=== PATIENT | female | born 1970 | race Caucasian/White ===

== ENCOUNTER 2017-03-27 09:17 | Observation (INO) | payer BC ==
[2017-03-27 09:55] LABS: Mean Cell Volume 74.3 fl (78-100); Mean Corpuscular Hemoglobin 22.4 pg (26-32); Mean Platelet Volume 10.8 fl (6-9.5); Platelet Count 352 K/mm3 (150-450); Red Blood Count 4.99 M/mm3 (4.1-5.4); Red Cell Distribution Width 17.3 % (11.5-14.0); White Blood Count 6.4 K/mm3 (4.0-10.5)
[2017-03-27] MEDS ORDERED: Sodium Chloride 0.9% 10 ML FLUSH Syringe IV PRN (10:21)
[2017-03-27 10:28] LABS: ALBUMIN 4.1 g/dL (3.4-5.0); ALKALINE PHOSPHATASE 71 U/L (46-116); ANION GAP 13.3 MEQ/L (5-15); BLOOD UREA NITROGEN 11 mg/dL (9-20); CHLORIDE 106 mEq/L (98-107); Carbon Dioxide 26.6 mEq/L (21-32); Glucose 92 MG/DL (70-110); Potassium 4.2 mEq/L (3.5-5.1); SGOT/AST 22 U/L (15-37); SGPT/ALT 14 U/L (12-78); SODIUM 142 mEq/L (136-145); Total Protein 7.4 gm/dL (6.4-8.2)
[2017-03-27 10:30] LABS: TROPONIN < 0.017 ng/ml (0.000-0.056)
[2017-03-27] MEDS ORDERED: solu-MEDROL 125 MG IV SCH (10:30)
[2017-03-27] MEDS ORDERED: ROCEPHIN 1 Gm-D5w 50 ml Bag** 1 G/50 ML IVPB IV SCH (10:30)
[2017-03-27 10:42] LABS: ANISOCYTOSIS 1+; Eosinophil 1 % (0.00-3.0); Platelet Estimate NORMAL (NORMAL); Poikilocytosis 1+; Total Cells Counted 100
[2017-03-27] MEDS: DUONEB 0.5-3 MG/3 ml Neb IH SCH ×4 (10:52→23:15)
--- NOTE | 2017-03-27 10:53 | XRAY ---
Exam: Two-view chest from 03/27/2017. Comparison: Two-view chest from 03/19/2015. Indication: Shortness of breath. Findings: Upright PA and lateral chest films were obtained. The lungs are well expanded. Minimal curvilinear plate atelectasis is seen projected over the left costophrenic angle on the PA film. No air space infiltrates, vascular congestion, pneumothorax, or pleural fluid is seen. I believe there is also some minimal curvilinear stranding at the posterior medial left lung base within the posterior lung sulcus. This probably reflects some minimal linear atelectasis or scarring. The heart size and contour are normal. The meng and mediastinal structures appear unremarkable. No acute osseous process is seen. Impression: 1. A couple sites of minor linear stranding at the left lung base suggestive of either plate atelectasis or fibrotic scarring are seen. This appears new from 03/19/2015. 2. No air space infiltrates or other acute cardiopulmonary process is seen.
[2017-03-27] MEDS ORDERED: Zithromax 500 MG/ 250 ML NaCl Premix 500 MG/250 ML IVPB IV SCH (11:00)
[2017-03-27] MEDS: Sodium Chloride 0.9% 10 ML FLUSH Syringe IV SCH ×2 (17:58→21:40)
[2017-03-27] MEDS ORDERED: MOTRIN 400 MG PO PRN (18:01)
[2017-03-27] MEDS: solu-MEDROL 40 MG IV SCH (19:23)
[2017-03-27] MEDS: TYLENOL 325 MG PO PRN (19:31)
[2017-03-28] MEDS: solu-MEDROL 40 MG IV SCH ×2 (00:20→05:44)
[2017-03-28] MEDS: TYLENOL 325 MG PO PRN ×2 (01:30→08:36)
[2017-03-28] MEDS: DUONEB 0.5-3 MG/3 ml Neb IH SCH ×3 (02:46→10:35)
--- NOTE | 2017-03-28 08:20 | PCM.HP ---
History of Present Illness - Chief Complaint Chief Complaint: copd exacerbation Date: 03/28/17 History of Present Illness: is a 46 year old female. who has having some coughing and wheezing for several days and presented to the office. In the office her puse ox was 87 to 88% on room air and was in no distress and not feeling short of breath at that time. She had been on home oxygen the prior year but had stopped using it for over a year now she thinks. She has had prior episodes of pneumonia no previous blood clots and she was having no chest pain. She has no fever or chills and no leg or calf swelling. Today she feels much better but does require oxygen to keep her saturation above 88% and did require on oxymask last night because of pulse ox in the 's but she was not short of breath or symptomatic at that time. She is feeling well this am with no complaints and wants to go home. SHe has some slight nonproductive cough but otherwise is doing well. - Review of Systems Constitutional: No Fever, No Chills Eyes: No Symptoms Ears, Nose, & Throat: No Symptoms Respiratory: Cough, Short Of Breath, Wheezing Cardiac: No Chest Pain, No Edema, No Palpitations, No Syncope Abdominal/Gastrointestinal: No Abdominal Pain, No Nausea, No Vomiting, No Diarrhea Genitourinary Symptoms: No Dysuria Musculoskeletal: No Back Pain, No Neck Pain Skin: No Rash Neurological: No Dizziness, No Focal Weakness, No Sensory Changes Psychological: No Symptoms Endocrine: No Symptoms Hematologic/Lymphatic: No Symptoms Immunological/Allergic: No Symptoms Medications & Allergies Home Medications: Home Medication List Albuterol/Ipratropium 3ml Neb* [DUONEB 0.5-3 MG/3 ml Neb] 3 ml NEB Q3H/PRN 12/29 [History Confirmed 03/27/17] Albuterol Sulfate [Proair Hfa] 1 puffs IH Q4H PRN 03/27/17 [History Confirmed ] Fluticasone/Vilanterol [Breo Ellipta 100-25 Mcg INH] 1 puff IH DAILY 03/27/17 [ History Confirmed 03/27/17] Ibuprofen 800 mg PO Q4H PRN 03/27/17 [History Confirmed 03/27/17] Levothyroxine Sodium 100 Mcg [Synthroid 100 Mcg] 100 mcg PO DAILY 03/27/17 [History Confirmed 03/27/17] Allergies/Adverse Reactions: Allergies Allergy/AdvReac Type Severity Reaction Status Date / Time Penicillins Allergy unknown Verified 03/19/15 18:16 - Past Medical History Past Medical History: Yes Neurological History: No Pertinent History ENT History: No Pertinent History Cardiac History: No Pertinent History Respiratory History: Asthma, COPD, Pneumonia Endocrine Medical History: Hypothyroidism Musculoskelatal History: No Pertinent History GI Medical History: No Pertinent History History: No Pertinent History Pyscho-Social History: Anxiety Reproductive Disorders: Other Comment: cervical cell abnormality. left knee bone spur/arthritis. anemia- iron def - Female History Are you now?: No - Past Surgical History Past Surgical History: No Neuro Surgical History: No Pertinent History Cardiac History: No Pertinent History Respiratory Surgery: No Pertinent History GI Surgical History: Exploratory Laparoscopy Genitourinary Surgical Hx: No Pertinent History Musculskeletal Surgical Hx: No Pertinent History Female Surgical History: Section, Other Other Surgical History: LEEP. ovarian cystectomy - Social History Smoking Status: Current some day smoker How long have you smoked: 25 YEARS Exposure to second hand smoke: No Alcohol: None Drug Use: none - Physical Exam Vital Signs: Vital Signs - 24 hr Temp Pulse Resp BP Pulse Ox 03/28/17 08:05 94 L 03/28/17 07:14 106 H 18 96 03/28/17 04:00 98.3 F 111 H 18 115/62 90 L 03/28/17 02:59 112 H 20 92 L 03/28/17 00:00 97.7 F 126 H 20 129/66 92 L 03/27/17 23:20 114 H 18 98 03/27/17 20:00 98.3 F 131 H 18 123/63 88 L 03/27/17 18:49 118 H 20 89 L 03/27/17 16:58 100 H 15 88 L 03/27/17 16:00 98.7 F 112 H 18 120/71 03/27/17 15:15 92 H 16 96 03/27/17 12:00 98.9 F 92 H 18 143/72 94 L 03/27/17 10:52 92 H 18 94 L 03/27/17 09:42 98.9 F 92 H 16 143/72 90 L Oxygen-Last 24 hours O2 Percentage 4 Liters = 36% O2 Percentage 4 Liters = 36% O2 Percentage 4 Liters = 36% General Appearance: no apparent distress, alert Neurologic Exam: alert, oriented x 3, cooperative, normal mood/affect, nml cerebellar function, nml station & gait, sensation nml, No motor deficits Eye Exam: PERRL/EOMI, eyes nml inspection Ears, Nose, Throat Exam: normal ENT inspection, TMs normal, pharynx normal, moist mucous membranes Neck Exam: normal inspection, non-tender, supple, full range of motion Respiratory Exam: normal breath sounds, lungs clear, No respiratory distress Cardiovascular Exam: regular rate/rhythm, normal heart sounds, normal peripheral pulses Gastrointestinal/Abdomen Exam: soft, normal bowel sounds, No tenderness, No mass Back Exam: normal inspection, normal range of motion, No CVA tenderness, No vertebral tenderness Extremity Exam: normal inspection, normal range of motion, pelvis stable Skin Exam: normal color, warm, dry, No rash Lymphatic Exam: No adenopathy Results - Labs Lab/Micro Results: Lab Results-Last 24 Hours 03/27/17 03/27/17 03/27/17 Range/Units 09:50 09:50 09:50 WBC 6.4 (4.0-10.5) K/mm3 RBC 4.99 (4.1-5.4) M/mm3 Hgb 11.2 L (12.0-16.0) gm/dl Hct 37.1 (35-47) % MCV 74.3 L (78-100) fl MCH 22.4 L (26-32) pg MCHC 30.2 L (32-36) g/dl RDW 17.3 H (11.5-14.0) % Plt Count 352 (150-450) K/mm3 MPV 10.8 H (6-9.5) fl Segmented Neutrophils 69 H (36.0-66.0) % Lymphocytes (Manual) 28 (24-44) % Monocytes (Manual) 2 (0.0-12.0) % Eosinophils (Manual) 1 (0.00-3.0) % Differential Comment ABNORMAL Platelet Estimate NORMAL (NORMAL) Poikilocytosis 1+ Anisocytosis 1+ D-Dimer 270 (0-500) ng/mL Sodium 142 (136-145) mEq/L Potassium 4.2 (3.5-5.1) mEq/L Chloride 106 (98-107) mEq/L Carbon Dioxide 26.6 (21-32) mEq/L Anion Gap 13.3 (5-15) MEQ/L BUN 11 (9-20) mg/dL Creatinine 0.78 (0.55-1.30) mg/dl Estimated GFR > 60 ML/MIN Glucose 92 (70-110) MG/DL Calcium 9.2 (8.5-10.1) mg/dL Total Bilirubin 0.30 (0.2-1.0) mg/dL AST 22 (15-37) U/L ALT 14 (12-78) U/L Alkaline Phosphatase 71 (46-116) U/L Troponin I < 0.017 (0.000-0.056) ng/ml NT-Pro-B Natriuret Pep 102 (0-125) pg/ml Serum Total Protein 7.4 (6.4-8.2) gm/dL Albumin 4.1 (3.4-5.0) g/dL - Radiology Impressions Radiology Exams & Impressions: Radiology Procedures Category Date Time Status CHEST 2 VIEWS (PA AND LAT) Routine Exams 03/27/17 10:00 Completed - Other Procedures and Tests Respiratory Therapy 03/27/17 09:35 Oxygen NASAL CANNULA 2 lpm 03/27/17 09:36 Respiratory Nebulizer Q4H Assessment/Plan (1) Acute on chronic respiratory failure with hypoxemia Current Visit: Yes Status: Acute Assessment & Plan: given the lack of symptoms she experiences with low oxygen levels and her previous prescription for home O2 it is likely she has chronic hypoxemic respiratory failure she feels well now and has mild to moderate exacerbation of her copd and no evidence to support cardiac etiology with negative TN and EKG and Negative D- Dimer with no history of embolisms she requests to go home today and given her overall good appearence and just need for oxygen we will set her up for home O2 and treat the copd exacerbation and set up outpatient pulm consultation she has quit smoking for about 1 week now and is highly encouraged to continue without tobacco. Code(s): J96.21 - ACUTE AND CHRONIC RESPIRATORY FAILURE WITH HYPOXIA (2) COPD exacerbation Current Visit: Yes Status: Acute Code(s): J44.1 - CHRONIC OBSTRUCTIVE PULMONARY DISEASE W (ACUTE) EXACERBATION (3) Hypothyroidism Current Visit: Yes Status: Chronic Code(s): E03.9 - HYPOTHYROIDISM, UNSPECIFIED
--- NOTE | 2017-03-28 08:32 | PCM.DCORD ---
- Discharge Discharge Date: 03/28/17 Disposition: Home, Self-Care Condition: Stable Prescriptions: New Prednisone 10 mg [Deltasone 10 mg] 10 mg PO DAILY #44 tablet Azithromycin 250 mg [Zithromax 250 MG TABLET] 250 mg PO DAILY #4 tablet Continue Albuterol/Ipratropium 3ml Neb* [DUONEB 0.5-3 MG/3 ml Neb] 3 ml NEB Q3H/PRN Albuterol Sulfate [Proair Hfa] 1 puffs IH Q4H PRN PRN Reason: Shortness Of Breath Levothyroxine Sodium 100 Mcg [Synthroid 100 Mcg] 100 mcg PO DAILY Fluticasone/Vilanterol [Breo Ellipta 100-25 Mcg INH] 1 puff IH DAILY Ibuprofen 800 mg PO Q4H PRN PRN Reason: Pain Additional Instructions: home with home oxygen if can be arranged Follow up with: CHLOE CANTU [Primary Care Provider] - 1 Week TITUS GIRMALDO [ACTIVE STAFF] - 1 Week
[2017-03-28] MEDS: Sodium Chloride 0.9% 10 ML FLUSH Syringe IV SCH (08:38)
[2017-03-28] MEDS ORDERED: Zithromax 250 MG TABLET PO SCH (10:00)
[2017-03-28] MEDS ORDERED: SYNTHROID 100 MCG PO SCH (10:00)
[2017-03-28] MEDS ORDERED: Protonix 40MG Tablet PO SCH (10:00)
[2017-03-28] MEDS ORDERED: solu-MEDROL 40 MG IV SCH (12:00)
[2017-03-28 12:28] VITALS: BP 133/67; PULSE 118; O2SAT 91
== END 2017-03-28 12:15 | disposition home or self-care (01) ==
LOC: MED SURG 09:17
PROVIDERS: ADMIT Family Medicine; ATTEND Family Medicine
DX: J96.21 Acute and chronic respiratory failure with hypoxia (principal); J44.1 Chronic obstructive pulmonary disease with (acute) exacerbation; E03.9 Hypothyroidism, unspecified; Z99.81 Dependence on supplemental oxygen; J45.909 Unspecified asthma, uncomplicated; F41.9 Anxiety disorder, unspecified; M19.90 Unspecified osteoarthritis, unspecified site
CPT/HCPCS: 36415; 71020; 80053; 83880; 84484; 85025; 85379; 93005; 93268; 94640; 94760; G0378; J0456; J0696; J2920; J2930; A9270-GY

== ENCOUNTER 2018-04-04 06:01 | Day surgery (SDC) | payer BC ==
[2018-04-04] MEDS ORDERED: Ketamine HCl 50 MG/ML IV ONE (06:02)
[2018-04-04] MEDS ORDERED: DIPRIVAN 200 MG/20 ML IV ONE (06:02)
[2018-04-04] MEDS ORDERED: Lactated Ringers 1,000 ML IV SCH (06:30)
--- NOTE | 2018-04-04 07:53 | OP ---
SURGERY DATE/TIME: 04/04/2018 0657 PREOPERATIVE DIAGNOSIS: Iron deficiency anemia. POSTOPERATIVE DIAGNOSES: 1) Mild gastritis. 2) Hiatal hernia. 3) Normal colon. PROCEDURES: 1) Esophagogastroduodenoscopy. 2) Colonoscopy. SURGEON: Dr. Duron. ANESTHESIA: Medications were given by the anesthesia department. BRIEF HISTORY: The patient is a 47 year old white female who presents now for endoscopic evaluation. The patient has presented with an iron deficiency-type anemia. The patient reports that she has had no bleeding, no significant blood loss from menstrual loss or other blood loss problems. The patient was felt the need to have endoscopic evaluation. She was appraised of the risks of the procedure including the risk of perforation, phlebitis, untoward reaction to medication, bleeding and missed lesions. The patient verbalized her understanding and desired to have the procedure performed. DESCRIPTION OF PROCEDURE: The patient was given the medications by the anesthesia department. She had continuous pulse oximetry, ECG monitoring, intermittent blood pressure monitoring and tidal CO2 monitoring during the examination. She was placed in the left lateral decubitus position. A bite block was placed and the flexible Olympus gastroscope was used to intubate the oropharynx. The scope was easily introduced in the esophagus which appeared to be normal throughout its length. The stomach was entered where normal gastric rugal folds were seen and these distended nicely with insufflation of air. The scope was passed along the greater curvature of the stomach to the antrum where there appeared to be some mild erythema but no erosions or ulcerations. The pylorus is intubated and duodenum inspected and found to be normal. The scope withdrawn towards the stomach. Retroflex view is obtained of the lesser curvature, fundus and cardia region of the stomach and we noted a hiatal hernia present but no other mucosal lesions were encountered. The scope was withdrawn in the esophagus and the gastroesophageal junction appeared to be essentially normal other than the hiatal hernia. The scope was then removed from the patient. Next, a digital rectal examination was performed and revealed normal anal sphincter tone and no masses. External hemorrhoids were present but no bleeding. The flexible Olympus pediatric colonoscope was used to intubate the rectum. A view of the colon was developed sequentially to the cecum including several centimeters into the terminal ileum. Upon insertion and withdrawal, including a retroflex view in the rectum, no mucosal lesions were encountered. The scope was removed from the patient who tolerated the procedure well. The prep was noted to be good.
[2018-04-04 08:50] VITALS: BP 118/66; PULSE 76; O2SAT 98
== END 2018-04-04 09:05 | disposition home or self-care (01) ==
LOC: SDC 06:01
PROVIDERS: ATTEND Family Medicine
DX: K29.70 Gastritis, unspecified, without bleeding (principal); K44.9 Diaphragmatic hernia without obstruction or gangrene; D50.9 Iron deficiency anemia, unspecified; E03.9 Hypothyroidism, unspecified
CPT/HCPCS: J2704

== ENCOUNTER 2021-06-15 18:26 | Emergency (ER) | payer BC ==
--- NOTE | 2021-06-15 18:28 | ERPHSYRPT ---
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 Patient underwent incision and drainage of this area and there was 4 cc of purulent drainage present. The dentist was concerned about the swelling that is present on her right cheek. Patient has no difficulty breathing. She does have swelling in the buccal mucosal and gingival areas in the right lower molar region. She has no stridor. She was sent here for intravenous antibiotics. Patient was placed on oral clindamycin. Timing/Duration: abrupt onset, days (2) Severity: moderate ENT Location: mouth, dental Prearrival Treatment: prescription meds Modifying Factors: Improves With: activity Associated Symptoms: facial pain/swelling (Right side), tooth pain (Right lower molars), No fever, No difficulty swallowing, No voice change Allergies/Adverse Reactions: Penicillins Allergy (Verified 06/15/21 18:58) unknown Home Medications: Ferrous Sulfate 325 mg [Feosol 325 mg] 325 mg PO BID 04/02/18 [History] Fluticasone/Vilanterol [Breo Ellipta 100-25 Mcg INH] 1 ea IH DAILY 04/02/18 [History] Gabapentin [Neurontin] 300 mg PO TID 04/02/18 [History] Levothyroxine Sodium 50 Mcg [Synthroid 50 Mcg] 50 mcg PO DAILY 04/02/18 [History] Hx Tetanus, Diphtheria Vaccination/Date Given: Yes (UNKOWN) Hx Influenza Vaccination/Date Given: No (REFUSE) Hx Pneumococcal Vaccination/Date Given: No (REFUSE) Travel Risk - International Travel Have you traveled outside of the country in past 3 weeks: No - Coronavirus Screening Are you exhibiting any of the following symptoms?: No Close contact with a COVID-19 positive Pt in past 14-21 Days: No - Review of Systems Constitutional: No Symptoms Eyes: No Symptoms Ears, Nose, & Throat: Other (Right lower molar dental pain with gingival and right buccal mucosal swelling and tenderness.), No Throat Pain, No Painful Swallowing Respiratory: No Symptoms Cardiac: No Symptoms Abdominal/Gastrointestinal: No Symptoms Genitourinary Symptoms: No Symptoms Musculoskeletal: No Symptoms Skin: No Symptoms Neurological: No Symptoms Psychological: No Symptoms Endocrine: No Symptoms Hematologic/Lymphatic: No Symptoms Immunological/Allergic: No Symptoms All Other Systems: Reviewed and Negative - Past Medical History Pertinent Past Medical History: Yes Neurological History: No Pertinent History ENT History: No Pertinent History Cardiac History: No Pertinent History Respiratory History: Asthma, COPD, Pneumonia Endocrine Medical History: Hypothyroidism Musculoskeletal History: No Pertinent History GI Medical History: No Pertinent History History: No Pertinent History Psycho-Social History: Anxiety Female Reproductive Disorders: Other Other Medical History: cervical cell abnormality. left knee bone spur/arthritis. anemia- iron def - Past Surgical History Past Surgical History: Yes Neuro Surgical History: No Pertinent History Cardiac: No Pertinent History Respiratory: No Pertinent History Gastrointestinal: Exploratory Laparoscopy Genitourinary: No Pertinent History Musculoskeletal: Orthopedic Surgery Female Surgical History: Section, Other Other Surgical History: LEEP, bone spur,. ovarian cystectomy - Social History Smoking Status: Current every day smoker How long have you smoked: 25 YEARS Exposure to second hand smoke: No Drug Use: none Patient Lives Alone: No - Nursing Vital Signs Nursing Vital Signs: Initial Vital Signs Temperature 98.8 F 06/15/21 18:33 Pulse Rate 110 H 06/15/21 18:33 Respiratory Rate 20 06/15/21 18:33 Blood Pressure 132/83 06/15/21 18:33 O2 Sat by Pulse Oximetry 96 06/15/21 18:33 Pain Scale Pain Intensity 10 - Physical Exam General Appearance: no apparent distress, alert, anxiety Eye Exam: bilateral eye: normal inspection, PERRL, EOMI Ear Exam: bilateral ear: auricle normal Nasal Exam: normal inspection Throat Exam: dental tenderness (Tenderness right lower molars with associated gingival and right buccal mucosal swelling. Packing removed, no purulent drainage visible. ), moist mucus membranes Neck Exam: normal inspection, non-tender (There is no tenderness on the neck itself on the right side. There is no crepitus present. There is tenderness to palpation in the right cheek or buccal mucosal region), supple, full range of motion, trachea midline Cardiovascular/Respiratory Exam: chest non-tender, normal breath sounds, no resp iratory distress, tachycardia, No crepitus Abdominal Exam: non-tender Neurologic Exam: alert, oriented x 3, cooperative, underground utility locator II-XII nml as tested, nor mal mood/affect, nml cerebellar function, nml station & gait, sensation nml Skin Exam: normal color, warm, dry SpO2 Interpretation: normal O2 Delivery: Room Air - Course Nursing assessment & vital signs reviewed: Yes Ordered Tests: Active Orders 24 hr Category Date Time Status IV Insertion STAT Care 06/15/21 19:01 Active NECK WO CONTRAST [CT] Stat Exams 06/15/21 19:04 Taken CBC W DIFF Stat Lab 06/15/21 20:42 Completed Lactic Acid Stat Lab 06/15/21 20:19 Completed Medication Summary Discontinued Medications Generic Name Dose Route Start Last Admin Trade Name Freq PRN Reason Stop Dose Admin Methylprednisolone Sodium 0 mg 06/15/21 19:22 06/15/21 20:19 Succinate 125 mg/ Sterile IV 06/15/21 19:23 125 mg Water 2 ml STAT ONE Administration Clindamycin HCl/Dextrose 600 mg in 50 mls @ 100 mls/hr 06/15/21 19:02 06/15/21 20:24 Clindamycin-D5w 600 Mg/50 Ml IV 06/15/21 19:31 100 ml/hr STAT STA 100 mls/hr Administration Clindamycin HCl/Dextrose Confirm 06/15/21 20:13 Clindamycin-D5w 600 Mg/50 Ml Administered 06/15/21 20:14 Dose 600 mg in 50 mls @ ud IV .STK-MED ONE Methylprednisolone Sodium Succinate Confirm 06/15/21 20:12 Solu-Medrol Administered 06/15/21 20:13 Dose 125 mg .ROUTE .STK-MED ONE Morphine Sulfate 6 mg 06/15/21 19:01 06/15/21 20:17 Morphine Sulfate 10 Mg/Ml IV 06/15/21 19:02 6 mg STAT ONE Administration Morphine Sulfate Confirm 06/15/21 20:12 Morphine Sulfate 10 Mg/Ml Administered 06/15/21 20:13 Dose 10 mg .ROUTE .STK-MED ONE Ondansetron HCl 4 mg 06/15/21 19:01 06/15/21 20:15 Zofran 4 Mg/2 Ml Vial IV 06/15/21 19:02 4 mg STAT ONE Administration Ondansetron HCl Confirm 06/15/21 20:11 Zofran 4 Mg/2 Ml Vial Administered 06/15/21 20:12 Dose 4 mg .ROUTE .STK-MED ONE Sterile Water Confirm 06/15/21 20:12 Sterile H2o 10 Ml Administered 06/15/21 20:13 Dose 10 ml IJ .STK-MED ONE Lab/Rad Data: Laboratory Result Diagrams 06/15/21 20:42 Laboratory Results 06/15/21 06/15/21 Range/Units 20:42 20:19 WBC 12.5 H (4.0-10.5) K/mm3 RBC 4.48 (4.1-5.4) M/mm3 Hgb 11.7 L (12.0-16.0) gm/dl Hct 38.6 (35-47) % MCV 86.2 (78-100) fl MCH 26.1 (26-32) pg MCHC 30.3 L (32-36) g/dl RDW 15.3 H (11.5-14.0) % Plt Count 342 (150-450) K/mm3 MPV 11.2 H (7.5-11.0) fl Gran % 83.5 H (36.0-66.0) % Eos # (Auto) 0.08 (0-0.5) Absolute Lymphs (auto) 0.94 L (1.0-4.6) Absolute Monos (auto) 1.03 (0.0-1.3) Lymphocytes % 7.5 L (24.0-44.0) % Monocytes % 8.2 (0.0-12.0) % Eosinophils % 0.6 (0.00-5.0) % Basophils % 0.2 (0.0-0.4) % Absolute Granulocytes 10.45 H (1.4-6.9) Basophils # 0.03 (0-0.4) Lactic Acid 0.8 (0.4-2.0) - Progress Progress: improved Progress Note: 06/15/21 20:28 CAT scan of the soft tissue of the neck shows right mandibular subcutaneous soft tissue induration presumed inflammatory/infection with small reactive right cervical submandibular lymph nodes. Remainder of neck negative. No mention of abscess. No mention of submandibular soft tissue neck abscess or inflammatory process. Counseled pt/family regarding: lab results, diagnosis, need for follow-up - Departure Departure Disposition: Home Clinical Impression: Dental abscess, Right facial swelling Condition: Stable Critical Care Time: No Referrals: DOCTOR,NO FAMILY [Primary Care Provider] - Additional Instructions: Take your antibiotics as prescribed. Rinse her mouth out with warm normal saline solution followed by Listerine/mouthwash of choice. Return to the emergency room tomorrow at noon for reevaluation.
[2021-06-15 18:59] VITALS: O2SAT 96
[2021-06-15] MEDS ORDERED: Zofran 4 MG/2 ML VIAL IV ONE (19:01)
[2021-06-15] MEDS ORDERED: MORPHINE SULFATE 10 MG/ML IV ONE (19:01)
[2021-06-15] MEDS ORDERED: CLINDAMYCIN-D5W 600 MG/50 ML*** 600 MG/50 ML BAG IV STA (19:02)
[2021-06-15] MEDS ORDERED: solu-MEDROL 125 MG, Sterile H2O 10 ml 2 ML IV ONE ×2 (19:22)
[2021-06-15] MEDS ORDERED: Zofran 4 MG/2 ML VIAL ONE (20:11)
[2021-06-15] MEDS ORDERED: Sterile H2O 10 ml IJ ONE (20:12)
[2021-06-15] MEDS ORDERED: solu-MEDROL ONE (20:12)
[2021-06-15] MEDS ORDERED: MORPHINE SULFATE 10 MG/ML ONE (20:12)
[2021-06-15] MEDS ORDERED: CLINDAMYCIN-D5W 600 MG/50 ML*** 600 MG/50 ML BAG IV ONE (20:13)
[2021-06-15 20:52] LABS: Absolute Neutrophil Ct (ANC) 10.45 (1.4-6.9); BASOPHIL % 0.2 % (0.0-0.4); Basophil (Absolute #) 0.03 (0-0.4); Eosinophil % 0.6 % (0.00-5.0); Eosinophil (Absolute #) 0.08 (0-0.5); Hematocrit 38.6 % (35-47); Hemoglobin 11.7 gm/dl (12.0-16.0); Lymphocyte (Absolute #) 0.94 (1.0-4.6); Lymphocytes % 7.5 % (24.0-44.0); Mean Cell Volume 86.2 fl (78-100); Mean Corpuscular Hemoglobin 26.1 pg (26-32); Mean Corpuscular Hgb Concent. 30.3 g/dl (32-36); Mean Platelet Volume 11.2 fl (7.5-11.0); Monocyte (Absolute #) 1.03 (0.0-1.3); Monocytes % 8.2 % (0.0-12.0); Neutrophil % 83.5 % (36.0-66.0); Platelet Count 342 K/mm3 (150-450); Red Blood Count 4.48 M/mm3 (4.1-5.4); Red Cell Distribution Width 15.3 % (11.5-14.0); White Blood Count 12.5 K/mm3 (4.0-10.5)
[2021-06-15] MEDS ORDERED: NORCO 5/325 MG PO ONE (21:00)
[2021-06-15] MEDS ORDERED: NORCO 5/325 MG ONE (21:44)
[2021-06-15 22:16] VITALS: BP 126/67; PULSE 88
--- NOTE | 2021-06-16 08:49 | XRAY ---
Indication: Right neck/jaw pain and swelling. Multiple contiguous axial images obtained through the neck without contrast as ordered. Cutaneous BB placed over region of interest. Comparison: None There is extensive beam artifact from dental hardware limiting these levels. Cutaneous BB is right mandible where there is underlying mild cutaneous/subcutaneous soft tissue induration slightly extending into the right neck. Findings presumed inflammatory/infectious. A few prominent right cervical/submandibular lymph nodes, largest 8 x 12 mm presumed reactive. No walled off fluid collection or subcutaneous emphysema. Supra-and infraglottic airway widely patent. Normal epiglottis. No acute fracture, suspicious bony lesions, or osseous destructive process. Mild mucosal thickening floor of both maxillary sinuses. Base of the brain and lung apices are unremarkable. Impression: 1. Extreme beam artifact from dental hardware. 2. Right mandible and lesser degree right neck cellulitis with reactive lymph nodes. 3. Incidental paranasal sinus disease.
== END 2021-06-15 22:00 | disposition home or self-care (01) ==
LOC: ED 18:26
DX: K04.7 Periapical abscess without sinus (principal); R22.0 Localized swelling, mass and lump, head; K08.89 Other specified disorders of teeth and supporting structures
CPT/HCPCS: 36000; 36415; 70490; 83605; 85025; 96374; 96375; 99284; J2270; J2405; J2930; A9270-GY

== ENCOUNTER 2021-06-16 14:37 | Emergency (ER) | payer BC ==
[2021-06-16 14:49] VITALS: BP 160/92; PULSE 118; O2SAT 96
--- NOTE | 2021-06-16 15:34 | ERPHSYRPT ---
- History of Present Illness Time Seen by Provider: 06/16/21 14:40 Source: patient Exam Limitations: no limitations Patient Subjective Stated Complaint: Mouth pain Triage Nursing Assessment: Patient ambulated back to ED and transferred self to bed. Patient A+O X3. Patient's skin pink, warm and dry. Patient complains of right sided mouth pain 6/10. Patient was seen by oral surgeron yesterday and told to come to ED for IV atb. Patient was told by Dr. Melgar to come back to ED to be re evaluated today. Physician History: 50 years old female was evaluated yesterday by oral surgeon that incision drainage and later on was evaluated in our ER with CT showing cellulitis and was started on antibiotics is here for recheck. Patient reports since yesterday she is having some improvement in swelling but still have mild to moderate pain for which she is taking pain medications. She had a fever until this morning and no fever since then. She does have some difficulty swallowing because of painful movements of jaw but no difficulty breathing at all. Allergies/Adverse Reactions: Penicillins Allergy (Verified 06/16/21 14:42) unknown Home Medications: Fluticasone/Vilanterol [Breo Ellipta 100-25 Mcg INH] 1 ea IH DAILY 04/02/18 [History] Gabapentin [Neurontin] 300 mg PO BID 04/02/18 [History] Levothyroxine Sodium 50 Mcg [Synthroid 50 Mcg] 100 mcg PO DAILY 04/02/18 [History] Hx Tetanus, Diphtheria Vaccination/Date Given: Yes (UNKOWN) Hx Influenza Vaccination/Date Given: No (REFUSE) Hx Pneumococcal Vaccination/Date Given: No (REFUSE) Immunizations Up to Date: Yes Travel Risk - International Travel Have you traveled outside of the country in past 3 weeks: No - Coronavirus Screening Are you exhibiting any of the following symptoms?: No Close contact with a COVID-19 positive Pt in past 14-21 Days: No - Vaccine Status Have you recieved a Covid-19 vaccination: Yes 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 - Vaccination Dates Date of 2cond Vaccination (if applicable): February 2021 - Review of Systems Constitutional: No Symptoms Eyes: No Symptoms Ears, Nose, & Throat: Mouth Pain, Mouth Swelling Respiratory: No Symptoms Cardiac: No Symptoms Abdominal/Gastrointestinal: No Symptoms Musculoskeletal: No Symptoms Skin: Induration Neurological: No Symptoms Psychological: No Symptoms Endocrine: No Symptoms Hematologic/Lymphatic: No Symptoms - Past Medical History Pertinent Past Medical History: Yes Neurological History: No Pertinent History ENT History: No Pertinent History Cardiac History: No Pertinent History Respiratory History: Asthma, COPD, Pneumonia Endocrine Medical History: Hypothyroidism Musculoskeletal History: No Pertinent History GI Medical History: No Pertinent History History: No Pertinent History Psycho-Social History: Anxiety Female Reproductive Disorders: Other Other Medical History: cervical cell abnormality. left knee bone spur/arthritis. anemia- iron def - Past Surgical History Past Surgical History: Yes Neuro Surgical History: No Pertinent History Cardiac: No Pertinent History Respiratory: No Pertinent History Gastrointestinal: Exploratory Laparoscopy Genitourinary: No Pertinent History Musculoskeletal: Orthopedic Surgery Female Surgical History: Section, Other Other Surgical History: LEEP, bone spur,. ovarian cystectomy - Social History Smoking Status: Current every day smoker How long have you smoked: 25 YEARS Exposure to second hand smoke: No Drug Use: none Patient Lives Alone: No - Female History Hx Last Menstrual Period: menopausal Hx Now: No - Nursing Vital Signs Nursing Vital Signs: Initial Vital Signs Temperature 98.3 F 06/16/21 14:44 Pulse Rate 118 H 06/16/21 14:44 Respiratory Rate 18 06/16/21 14:44 Blood Pressure 160/92 06/16/21 14:44 O2 Sat by Pulse Oximetry 96 06/16/21 14:44 Pain Scale Pain Intensity 6 - Physical Exam General Appearance: no apparent distress, alert Eye Exam: bilateral eye: normal inspection, PERRL, EOMI Ear Exam: bilateral ear: auricle normal, canal normal, TM normal Nasal Exam: normal inspection Throat Exam: mandibular swelling (Right with firm consistency without fluctuation. Right lower gingival swelling without any active drainage on palpation.), moist mucus membranes, pharynx swelling Neck Exam: normal inspection, supple, full range of motion, trachea midline, lymphadenopathy (R) Cardiovascular/Respiratory Exam: normal breath sounds, tachycardia Neurologic Exam: alert, oriented x 3, cooperative, jinrikisha driver II-XII nml as tested, normal mood/affect Skin Exam: normal color SpO2 Interpretation: normal SpO2: 96 O2 Delivery: Room Air - Progress Progress: pain not gone completely Progress Note: 06/16/21 15:32 Patient is evaluated in the ER for mandibular/neck cellulitis with a source possibly dental for which I&D was done yesterday and is currently on clindamycin. She does not have a fever since morning. She is mildly tachycardic but does have pain. I do not see any janene redness or worsening of cellulitis since yesterday and patient is feeling improvement. I will continue with current medication and she is advised to follow-up with her primary dentist and primary care early next week. Discussed signs symptoms of worsening needing return to ER which she seems understanding Counseled pt/family regarding: diagnosis, need for follow-up - Departure Departure Disposition: Home Clinical Impression: Right facial swelling, Dental abscess Condition: Stable Critical Care Time: No Referrals: DOCTOR,NO FAMILY [Primary Care Provider] - Instructions: Tooth Abscess (DC), Cellulitis and Erysipelas (Skin Infections) Additional Instructions: Follow-up with your primary care/dental surgeon for reevaluation early next week. Continue with your current antibiotics and pain medications. Drink plenty of fluids to keep yourself well-hydrated. Return to ER for increasing swelling redness, difficulty movements of jaw or if develop fever chills etc.
== END 2021-06-16 15:40 | disposition home or self-care (01) ==
LOC: ED 14:37
DX: R22.0 Localized swelling, mass and lump, head (principal); K04.7 Periapical abscess without sinus
CPT/HCPCS: 99283

== ENCOUNTER 2021-09-29 05:56 | Day surgery (SDC) | payer BC ==
[2021-09-29] MEDS ORDERED: Lactated Ringers 1,000 ML IV SCH (06:30)
[2021-09-29] MEDS ORDERED: DIPRIVAN 200 MG/20 ML IV ONE ×3 (07:44→08:22)
[2021-09-29 09:39] VITALS: BP 125/86; PULSE 94; O2SAT 96
--- NOTE | 2021-09-29 11:35 | OP ---
SURGERY DATE/TIME: 09/29/2021 0759 PREOPERATIVE DIAGNOSIS: Rectal bleeding. POSTOPERATIVE DIAGNOSIS: External hemorrhoids and otherwise normal colon. PROCEDURE: Colonoscopy. SURGEON: Dr. Duron. ANESTHESIA: MAC. Medications given by anesthesia department. HISTORY: The patient is a 50-year-old white female presenting now for colonoscopic evaluation. She reports she has had months of bright red rectal bleeding. The patient is felt to need to have endoscopic evaluation. She was appraised of the risks of the procedure including the risk of perforation, phlebitis, untoward reaction to medication, bleeding and missed lesions. The patient verbalized her understanding and desired to have the procedure performed. DESCRIPTION OF PROCEDURE: The patient was given the medications by the anesthesia department. She had continuous pulse oximetry, ECG monitoring, intermittent blood pressure monitoring during the examination. She was placed in the left lateral decubitus position. A digital rectal examination was performed and revealed external hemorrhoids with active bleeding, no masses and normal anal sphincter tone. The flexible Olympus pediatric colonoscope was used to intubate the rectum. A view of the colon was developed sequentially to the cecum. Upon insertion and withdrawal, including a retroflex view in the rectum was noted fairly large amounts of liquid and particulate stool. No mucosal lesions were encountered. The scope was removed from the patient who tolerated the procedure well and was sent back to OP recovery in good condition. The prep was noted to be fair to poor.
== END 2021-09-29 09:40 | disposition home or self-care (01) ==
LOC: SDC 05:56
PROVIDERS: ATTEND Family Medicine
DX: K64.4 Residual hemorrhoidal skin tags (principal)
CPT/HCPCS: J2704

== ENCOUNTER 2021-10-01 21:12 | Emergency (ER) | payer BC ==
[2021-10-01] MEDS ORDERED: BABY ASPIRIN 81 MG CHEW PO ONE (21:15)
--- NOTE | 2021-10-01 21:15 | ERPHSYRPT ---
- History of Present Illness Time Seen by Provider: 10/01/21 21:15 Historian: patient Exam Limitations: no limitations Physician History: This is a 50-year-old white female who has no coronary artery disease history and has never had a myocardial infarction and presents with relatively sudden onset of substernal central chest pain that radiates straight through to her back. Patient does have a history of hypothyroidism, asthma, and COPD. Patient still has her gallbladder in place. She has no known ulcer disease. The patient is sharp and stabbing. She has no associated shortness of breath. She has no nausea vomiting. Patient did undergo a colonoscopy approximately 3 days ago and has some pressure in her abdomen. She had some loose stools since her colonoscopy was completed. Patient denies cough. She denies fever. Chest pain began approximately 4:30 PM while at work. Patient currently smokes cigarettes daily Timing/Duration: today Activities at Onset: other (Patient was at work) Quality: sharpness, stabbing Location: substernal, central Chest Pain Radiation: back Severity of Pain-Max: moderate Severity of Pain-Current: mild (To moderate) Modifying Factors: Improves With: nothing Associated Symptoms: denies symptoms Prior Chest Pain/Cardiac Workup: no prior chest pain, no prior cardiac workup Nitro Today/Relief: no nitro taken today Aspirin Treatment Today: 81 mg x 4, provided by ED Allergies/Adverse Reactions: Penicillins Allergy (Verified 09/29/21 06:25) unknown Home Medications: Fluticasone/Vilanterol [Breo Ellipta 100-25 Mcg INH] 1 ea IH DAILY 04/02/18 [History] Gabapentin [Neurontin] 300 mg PO BID 04/02/18 [History] Levothyroxine Sodium 50 Mcg [Synthroid 50 Mcg] 100 mcg PO DAILY 04/02/18 [History] Albuterol Sulfate [Proair Hfa] 8.5 gm IH Q4HPRN PRN 09/27/21 [History] Hx Tetanus, Diphtheria Vaccination/Date Given: Yes (UNKOWN) Hx Influenza Vaccination/Date Given: No (REFUSE) Hx Pneumococcal Vaccination/Date Given: No (REFUSE) Travel Risk - International Travel Have you traveled outside of the country in past 3 weeks: No - Coronavirus Screening Are you exhibiting any of the following symptoms?: No Close contact with a COVID-19 positive Pt in past 14- Days: No - Vaccine Status Have you recieved a Covid-19 vaccination: Yes Bellman: Moderna - Vaccination Dates Date of 2cond Vaccination (if applicable): February 2021 - Review of Systems Constitutional: No Symptoms Eyes: No Symptoms Ears, Nose, & Throat: No Symptoms Respiratory: No Symptoms Cardiac: Chest Pain Abdominal/Gastrointestinal: No Symptoms Genitourinary Symptoms: No Symptoms Musculoskeletal: No Symptoms Skin: No Symptoms Neurological: No Symptoms Psychological: No Symptoms Endocrine: No Symptoms Hematologic/Lymphatic: No Symptoms Immunological/Allergic: No Symptoms All Other Systems: Reviewed and Negative - Past Medical History Pertinent Past Medical History: Yes Neurological History: No Pertinent History ENT History: No Pertinent History Cardiac History: No Pertinent History Respiratory History: Asthma, COPD, Pneumonia Endocrine Medical History: Hypothyroidism Musculoskeletal History: No Pertinent History GI Medical History: No Pertinent History History: No Pertinent History Psycho-Social History: Anxiety Female Reproductive Disorders: Other Other Medical History: cervical cell abnormality. left knee bone spur/arthritis. anemia- iron def - Past Surgical History Past Surgical History: Yes Neuro Surgical History: No Pertinent History Cardiac: No Pertinent History Respiratory: No Pertinent History Gastrointestinal: Exploratory Laparoscopy Genitourinary: No Pertinent History Musculoskeletal: Orthopedic Surgery Female Surgical History: Section, Other Other Surgical History: LEEP, bone spur,. ovarian cystectomy - Social History Smoking Status: Current every day smoker How long have you smoked: 30 years Exposure to second hand smoke: Yes Drug Use: none Patient Lives Alone: No - Nursing Vital Signs Nursing Vital Signs: Initial Vital Signs Temperature 97.6 F 10/01/21 21:13 Pulse Rate 90 10/01/21 21:13 Respiratory Rate 20 10/01/21 21:13 Blood Pressure 149/91 10/01/21 21:13 O2 Sat by Pulse Oximetry 99 10/01/21 21:13 Pain Scale Pain Intensity 8 - Physical Exam General Appearance: no apparent distress, alert, anxiety Eye Exam: PERRL/EOMI, eyes nml inspection Ears, Nose, Throat Exam: normal ENT inspection, moist mucous membranes Neck Exam: normal inspection, non-tender, supple, full range of motion Respiratory Exam: normal breath sounds, chest tenderness, lungs clear, airway intact, No respiratory distress Cardiovascular Exam: regular rate/rhythm, normal heart sounds, normal peripheral pulses Gastrointestinal/Abdomen Exam: soft, normal bowel sounds, No tenderness Pelvic Exam: not done Rectal Exam: not done Back Exam: normal inspection, normal range of motion, No CVA tenderness, No vertebral tenderness Extremity Exam: normal inspection, normal range of motion, pelvis stable Neurologic Exam: alert, oriented x 3, cooperative, cryptanalyst II-XII nml as tested, normal mood/affect, nml cerebellar function, nml station & gait, sensation nml Skin Exam: normal color, warm, dry Lymphatic Exam: No adenopathy SpO2 Interpretation: normal O2 Delivery: Room Air - Course Nursing assessment & vital signs reviewed: Yes EKG Interpreted by Me: RATE (79), Sinus Rhythm, NORMAL AXIS, NORMAL INTERVALS, NORMAL QRS, NORMAL ST-T, Other (No acute ischemic changes on today's EKG. No significant change when compared to EKG dated 03/27/2017) Ordered Tests: Active Orders 24 hr Category Date Time Status EKG-ER Only STAT Care 10/01/21 21:15 Active IV Insertion STAT Care 10/01/21 21:15 Active Pulse Oximetry (ED) STAT Care 10/01/21 21:15 Active CHEST 1 VIEW (PORTABLE) Stat Exams 10/01/21 21:16 Taken CBC W DIFF Stat Lab 10/01/21 21:00 Completed CMP Stat Lab 10/01/21 21:00 Completed D-DIMER QUANTITATIVE Stat Lab 10/01/21 21:00 Completed NT PRO BNP Stat Lab 10/01/21 21:00 Completed PROTIME WITH INR Stat Lab 10/01/21 21:00 Completed TROPONIN Q3H Lab 10/01/21 21:00 Completed TROPONIN Q3H Lab 10/02/21 00:15 Ordered TROPONIN Q3H Lab 10/02/21 03:15 Ordered TROPONIN Q3H Lab 10/02/21 06:15 Ordered TROPONIN Q3H Lab 10/02/21 09:15 Ordered Medication Summary Discontinued Medications Generic Name Dose Route Start Last Admin Trade Name Freq PRN Reason Stop Dose Admin Al Hydrox/Mg Hydrox/Simethicone Confirm 10/01/21 22:07 Mag Hydrox/Al Hydrox/Simeth 30 Ml Udcup Administered 10/01/21 22:08 Dose 30 ml .ROUTE .STK-MED ONE Aspirin 324 mg 10/01/21 21:15 10/01/21 21:41 Aspirin 81 Mg Tab.Chew PO 10/01/21 21:16 324 mg STAT ONE Administration Lidocaine HCl Confirm 10/01/21 22:07 Lidocaine Hcl Viscous 1 Ml Administered 10/01/21 22:08 Dose 15 ml .ROUTE .STK-MED ONE Magnesium Hydroxide 45 ml 10/01/21 21:58 10/01/21 22:09 Mag Hydrx/Alum Hyd/Simeth/Lido 45 Ml Bottle PO 10/01/21 21:59 45 ml STAT ONE Administration Morphine Sulfate 4 mg 10/01/21 21:57 10/01/21 22:09 Morphine Sulfate 4 Mg/Ml Injection IV 10/01/21 21:58 4 mg STAT ONE Administration Morphine Sulfate Confirm 10/01/21 22:07 Morphine Sulfate 4 Mg/Ml Injection Administered 10/01/21 22:08 Dose 4 mg .ROUTE .STK-MED ONE Ondansetron HCl 4 mg 10/01/21 21:57 10/01/21 22:09 Ondansetron Hcl 4 Mg/2 Ml Vial IV 10/01/21 21:58 4 mg STAT ONE Administration Ondansetron HCl Confirm 10/01/21 22:06 Ondansetron Hcl 4 Mg/2 Ml Vial Administered 10/01/21 22:07 Dose 4 mg .ROUTE .STK-MED ONE Lab/Rad Data: Laboratory Result Diagrams 10/01/21 21:00 10/01/21 21:00 Laboratory Results 10/01/21 10/01/21 10/01/21 Range/Units 21:00 21:00 21:00 WBC 10.2 (4.0-10.5) K/mm3 RBC 4.34 (4.1-5.4) M/mm3 Hgb 10.8 L (12.0-16.0) gm/dl Hct 36.1 (35-47) % MCV 83.2 (78-100) fl MCH 24.9 L (26-32) pg MCHC 29.9 L (32-36) g/dl RDW 14.8 H (11.5-14.0) % Plt Count 378 (150-450) K/mm3 MPV 10.9 (7.5-11.0) fl Gran % 73.2 H (36.0-66.0) % Eos # (Auto) 0.37 (0-0.5) Absolute Lymphs (auto) 1.55 (1.0-4.6) Absolute Monos (auto) 0.76 (0.0-1.3) Lymphocytes % 15.3 L (24.0-44.0) % Monocytes % 7.5 (0.0-12.0) % Eosinophils % 3.6 (0.00-5.0) % Basophils % 0.4 (0.0-0.4) % Absolute Granulocytes 7.44 H (1.4-6.9) Basophils # 0.04 (0-0.4) PT 11.0 (9.4-12.5) SECONDS INR 0.93 (0.8-3.0) D-Dimer 245 (215-500) ng/mL Sodium 138 (137-145) mmol/L Potassium 3.7 (3.5-5.1) mmol/L Chloride 103 (98-107) mmol/L Carbon Dioxide 28 (22-30) mmol/L Anion Gap 10.9 (5-15) MEQ/L BUN 11 (7-17) mg/dL Creatinine 0.65 (0.52-1.04) mg/dL Estimated GFR > 60.0 ML/MIN Glucose 101 (74-106) mg/dL Calcium 9.1 (8.4-10.2) mg/dL Total Bilirubin 0.40 (0.2-1.3) mg/dL AST 27 (14-36) U/L ALT 14 (0-35) U/L Alkaline Phosphatase 73 (38-126) U/L Troponin I (0.000-0.034) ng/mL NT-Pro-B Natriuret Pep 139 (0-900) pg/mL Serum Total Protein 7.0 (6.3-8.2) g/dL Albumin 4.2 (3.5-5.0) g/dL 10/01/21 Range/Units 21:00 WBC (4.0-10.5) K/mm3 RBC (4.1-5.4) M/mm3 Hgb (12.0-16.0) gm/dl Hct (35-47) % MCV (78-100) fl MCH (26-32) pg MCHC (32-36) g/dl RDW (11.5-14.0) % Plt Count (150-450) K/mm3 MPV (7.5-11.0) fl Gran % (36.0-66.0) % Eos # (Auto) (0-0.5) Absolute Lymphs (auto) (1.0-4.6) Absolute Monos (auto) (0.0-1.3) Lymphocytes % (24.0-44.0) % Monocytes % (0.0-12.0) % Eosinophils % (0.00-5.0) % Basophils % (0.0-0.4) % Absolute Granulocytes (1.4-6.9) Basophils # (0-0.4) PT (9.4-12.5) SECONDS INR (0.8-3.0) D-Dimer (215-500) ng/mL Sodium (137-145) mmol/L Potassium (3.5-5.1) mmol/L Chloride (98-107) mmol/L Carbon Dioxide (22-30) mmol/L Anion Gap (5-15) MEQ/L BUN (7-17) mg/dL Creatinine (0.52-1.04) mg/dL Estimated GFR ML/MIN Glucose (74-106) mg/dL Calcium (8.4-10.2) mg/dL Total Bilirubin (0.2-1.3) mg/dL AST (14-36) U/L ALT (0-35) U/L Alkaline Phosphatase (38-126) U/L Troponin I < 0.012 (0.000-0.034) ng/mL NT-Pro-B Natriuret Pep (0-900) pg/mL Serum Total Protein (6.3-8.2) g/dL Albumin (3.5-5.0) g/dL - Progress Progress: improved Air Movement: good Progress Note: 10/01/21 22:32 Chest x-ray shows no acute cardiopulmonary process Blood Culture(s) Obtained: Yes Antibiotics given: No Counseled pt/family regarding: lab results, diagnosis, need for follow-up, rad results - Departure Departure Disposition: Home Clinical Impression: Non-cardiac chest pain Condition: Stable Critical Care Time: No Referrals: DOCTOR,NO FAMILY [Primary Care Provider] - Follow up/PCP as directed Additional Instructions: Take all your medications as prescribed. Call your primary care doctor tomorrow to make arrangements for a follow-up appointment for possible referral to repair technician if indicated.
[2021-10-01 21:53] LABS: Absolute Neutrophil Ct (ANC) 7.44 (1.4-6.9); Basophil (Absolute #) 0.04 (0-0.4); Eosinophil % 3.6 % (0.00-5.0); Eosinophil (Absolute #) 0.37 (0-0.5); Hematocrit 36.1 % (35-47); Hemoglobin 10.8 gm/dl (12.0-16.0); Lymphocyte (Absolute #) 1.55 (1.0-4.6); Lymphocytes % 15.3 % (24.0-44.0); Mean Cell Volume 83.2 fl (78-100); Mean Corpuscular Hemoglobin 24.9 pg (26-32); Mean Corpuscular Hgb Concent. 29.9 g/dl (32-36); Mean Platelet Volume 10.9 fl (7.5-11.0); Monocyte (Absolute #) 0.76 (0.0-1.3); Monocytes % 7.5 % (0.0-12.0); Neutrophil % 73.2 % (36.0-66.0); Platelet Count 378 K/mm3 (150-450); Red Blood Count 4.34 M/mm3 (4.1-5.4); Red Cell Distribution Width 14.8 % (11.5-14.0); White Blood Count 10.2 K/mm3 (4.0-10.5)
[2021-10-01] MEDS ORDERED: Zofran 4 MG/2 ML VIAL IV ONE (21:57)
[2021-10-01] MEDS ORDERED: MORPHINE SULFATE 4 MG INJ IV ONE (21:57)
[2021-10-01] MEDS ORDERED: GI COCKTAIL 45 ML (Maalox/Lidocaine) PO ONE (21:58)
[2021-10-01 22:05] LABS: INR 0.93 (0.8-3.0)
[2021-10-01] MEDS ORDERED: Zofran 4 MG/2 ML VIAL ONE (22:06)
[2021-10-01] MEDS ORDERED: XYLOCAINE HCl Viscous ONE (22:07)
[2021-10-01] MEDS ORDERED: MAALOX ES 30 ML UNIT DOSE ONE (22:07)
[2021-10-01] MEDS ORDERED: MORPHINE SULFATE 4 MG INJ ONE (22:07)
[2021-10-01 22:17] LABS: ALBUMIN 4.2 g/dL (3.5-5.0); ALKALINE PHOSPHATASE 73 U/L (38-126); ANION GAP 10.9 MEQ/L (5-15); BLOOD UREA NITROGEN 11 mg/dL (7-17); CHLORIDE 103 mmol/L (98-107); Calcium 9.1 mg/dL (8.4-10.2); Carbon Dioxide 28 mmol/L (22-30); Creatinine 1 0.65 mg/dL (0.52-1.04); EST GLOMERULAR FILTRATION RATE > 60.0 ML/MIN; Glucose 101 mg/dL (74-106); NT PRO BNP 139 pg/mL (0-900); Potassium 3.7 mmol/L (3.5-5.1); SGOT/AST 27 U/L (14-36); SGPT/ALT 14 U/L (0-35); SODIUM 138 mmol/L (137-145)
[2021-10-01] MEDS ORDERED: Hydromorphone 1 mg/ml Injection ONE (22:38)
[2021-10-01] MEDS ORDERED: Hydromorphone 1 mg/ml Injection IV ONE (23:29)
[2021-10-02 00:04] VITALS: BP 142/85; PULSE 88; O2SAT 99
--- NOTE | 2021-10-02 09:01 | XRAY ---
Indication: Chest pain. Comparison: March 27, 2017. Portable chest unchanged again demonstrating minimal left base subsegmental atelectasis/scarring. Remaining heart and lungs unremarkable. Bony thorax intact. No new/acute findings.
== END 2021-10-02 00:42 | disposition home or self-care (01) ==
LOC: ED 21:12
DX: R07.89 Other chest pain (principal); J44.9 Chronic obstructive pulmonary disease, unspecified; E03.9 Hypothyroidism, unspecified; Z72.0 Tobacco use
CPT/HCPCS: 36000; 36415; 71045; 80053; 83880; 84484; 85025; 85379; 85610; 93005; 94760; 96374; 96375; 99284; J1170; J2270; J2405; A9270-GY

== ENCOUNTER 2021-10-02 11:03 | Observation (INO) | payer BC ==
[2021-10-02] MEDS ORDERED: Sodium Chloride 0.9% 1000 ML 1,000 ML IV STA (11:31)
[2021-10-02] MEDS ORDERED: Zofran 4 MG/2 ML VIAL IV ONE (11:34)
[2021-10-02] MEDS ORDERED: MORPHINE SULFATE 4 MG INJ IV ONE (11:34)
[2021-10-02] MEDS ORDERED: Zofran 4 MG/2 ML VIAL ONE ×2 (11:34→19:45)
[2021-10-02] MEDS ORDERED: Sodium Chloride 0.9% 1000 ML 1,000 ML ONE (11:35)
[2021-10-02] MEDS ORDERED: MORPHINE SULFATE 4 MG INJ ONE (11:35)
--- NOTE | 2021-10-02 11:57 | ERPHSYRPT ---
- History of Present Illness Time Seen by Provider: 10/02/21 11:35 Historian: patient Patient Subjective Stated Complaint: Abdominal pain Triage Nursing Assessment: Patient ambulated back to ED and transferred self to bed. Patient A+O X 3. Patient's skin flushed, warm and dry. Patient complains of abdominal pain 10/10 constant aching pain with intermittent sharp pain. Rebound tenderness noted to RUQ. Patient also complains of N/V. Abdomen soft and round with BS X 4. Physician History: Patient is a 50-year-old female presents to our ED with complaints of epigastric and right upper quadrant pain. Pain started yesterday. Patient was in our ED yesterday. Patient was evaluated for chest pain that radiated to her back. Patient states she was discharged home she felt well. However earlier this morning pain recurred. Pain localized to the right upper quadrant. Patient experienced nausea and vomiting. No trauma. No fever. Abdominal pain rated 10 out of 10. Pain worse with palpation to right upper quadrant. Pain improved with rest. Patient voices no other complaints or concerns at this time. Timing/Duration: yesterday Activities at Onset: none Quality: aching Abdominal Pain Onset Location: RUQ Pain Radiation: back Severity of Pain-Max: moderate Severity of Pain-Current: moderate Modifying Factors: Improves With: palpation (Palpation to right upper quadrant reproduces pain.) Associated Symptoms: nausea, vomiting Previous symptoms: no prior history Allergies/Adverse Reactions: Penicillins Allergy (Verified 10/02/21 11:23) unknown Home Medications: Fluticasone/Vilanterol [Breo Ellipta 100-25 Mcg INH] 1 ea IH DAILY 04/02/18 [History] Gabapentin [Neurontin] 300 mg PO BID 04/02/18 [History] Levothyroxine Sodium 50 Mcg [Synthroid 50 Mcg] 100 mcg PO DAILY 04/02/18 [History] Albuterol Sulfate [Proair Hfa] 8.5 gm IH Q4HPRN PRN 09/27/21 [History] Hx Tetanus, Diphtheria Vaccination/Date Given: Yes (UNKOWN) Hx Influenza Vaccination/Date Given: No (REFUSE) Hx Pneumococcal Vaccination/Date Given: No (REFUSE) Immunizations Up to Date: Yes Travel Risk - International Travel Have you traveled outside of the country in past 3 weeks: No - Coronavirus Screening Are you exhibiting any of the following symptoms?: No Close contact with a COVID-19 positive Pt in past 14-21 Days: No - Vaccine Status Have you recieved a Covid-19 vaccination: Yes [employer]: Moderna - Vaccination Dates Date of 2cond Vaccination (if applicable): February 2021 - Review of Systems Constitutional: No Symptoms, No Fever, No Chills Eyes: No Symptoms Ears, Nose, & Throat: No Symptoms Respiratory: No Symptoms, No Cough, No Dyspnea Cardiac: No Symptoms, No Chest Pain, No Edema, No Syncope Abdominal/Gastrointestinal: No Symptoms, No Abdominal Pain, No Nausea, No Vomiting, No Diarrhea Genitourinary Symptoms: No Symptoms, No Dysuria Musculoskeletal: No Symptoms, No Back Pain, No Neck Pain Skin: No Symptoms, No Rash Neurological: No Symptoms, No Dizziness, No Focal Weakness, No Sensory Changes Psychological: No Symptoms Endocrine: No Symptoms Hematologic/Lymphatic: No Symptoms Immunological/Allergic: No Symptoms All Other Systems: Reviewed and Negative - Past Medical History Pertinent Past Medical History: Yes Neurological History: No Pertinent History ENT History: No Pertinent History Cardiac History: No Pertinent History Respiratory History: Asthma, COPD, Pneumonia Endocrine Medical History: Hypothyroidism Musculoskeletal History: No Pertinent History GI Medical History: No Pertinent History History: No Pertinent History Psycho-Social History: Anxiety Female Reproductive Disorders: Other Other Medical History: cervical cell abnormality. left knee bone spur/arthritis. anemia- iron def - Past Surgical History Past Surgical History: Yes Neuro Surgical History: No Pertinent History Cardiac: No Pertinent History Respiratory: No Pertinent History Gastrointestinal: Exploratory Laparoscopy Genitourinary: No Pertinent History Musculoskeletal: Orthopedic Surgery Female Surgical History: Section, Other Other Surgical History: LEEP, bone spur,. ovarian cystectomy - Social History Smoking Status: Current every day smoker How long have you smoked: 30 years Exposure to second hand smoke: No Drug Use: none Patient Lives Alone: No - Nursing Vital Signs Nursing Vital Signs: Initial Vital Signs Temperature 98.1 F 10/02/21 11:27 Pulse Rate 109 H 10/02/21 11:27 Respiratory Rate 18 10/02/21 11:27 Blood Pressure 123/68 10/02/21 11:27 O2 Sat by Pulse Oximetry 97 10/02/21 11:27 Pain Scale Pain Intensity 4 - Physical Exam General Appearance: no apparent distress, alert Eye Exam: PERRL/EOMI, eyes nml inspection Ears, Nose, Throat Exam: normal ENT inspection, pharynx normal, moist mucous membranes Neck Exam: normal inspection, non-tender, supple, full range of motion Respiratory Exam: normal breath sounds, lungs clear, airway intact, No respiratory distress Cardiovascular Exam: regular rate/rhythm, normal heart sounds, normal peripheral pulses Gastrointestinal/Abdomen Exam: soft, normal bowel sounds, No tenderness, No mass Back Exam: normal inspection, normal range of motion, No CVA tenderness, No vertebral tenderness Extremity Exam: normal inspection, normal range of motion, pelvis stable Neurologic Exam: alert, oriented x 3, cooperative, normal mood/affect, nml cerebellar function, sensation nml, No motor deficits Skin Exam: normal color, warm, dry Lymphatic Exam: No adenopathy SpO2 Interpretation: normal SpO2: 97 O2 Delivery: Room Air - Course Nursing assessment & vital signs reviewed: Yes EKG Interpreted by Me: RATE (100), Sinus Tach, NORMAL AXIS, NORMAL INTERVALS - CT Exams Abdomen/Pelvis CT Interpretation: Tele-radiologist Report (New cholelithiasis with new CT features favoring acute cholecystitis. New small hiatal hernia. Again incidental hepatic hemangiomas and small right renal cyst) - Radiology Ultrasound Exam Gallbladder Ultrasound: tele radiology report (Distended gallbladder. Thickened gallbladder wall at 6 mm. 1.7 cm gallstone a second 1.6 cm gallstone. No pericholecystic fluid. Common bile duct is 5 mm. Hepatic hemangiomas) Ordered Tests: Active Orders 24 hr Category Date Time Status IV Insertion STAT Care 10/02/21 11:31 Active Oxygen-ED Only Nasal Cannula 2 lpm Care 10/02/21 12:34 Active ABDOMEN AND PELVIS W CONTRAST [CT] Stat Exams 10/02/21 12:01 Completed GALLBLADDER [US] Stat Exams 10/02/21 11:42 Completed CBC W DIFF Stat Lab 10/02/21 12:45 Completed CMP Stat Lab 10/02/21 12:45 Completed LIPASE Stat Lab 10/02/21 12:45 Completed TROPONIN Q3H Lab 10/02/21 12:45 Completed TROPONIN Q3H Lab 10/02/21 14:45 Ordered TROPONIN Q3H Lab 10/02/21 17:45 Ordered TROPONIN Q3H Lab 10/02/21 20:45 Ordered TROPONIN Q3H Lab 10/02/21 23:45 Ordered UA W/RFX UR CULTURE Stat Lab 10/02/21 11:38 Completed Transfer Order Routine Transfer 10/02/21 Ordered Medication Summary Discontinued Medications Generic Name Dose Route Start Last Admin Trade Name Kristel PRN Reason Stop Dose Admin Hydromorphone HCl 1 mg 10/02/21 12:26 10/02/21 12:30 Hydromorphone 1 Mg/1ml Inj 1 Mg/Ml Syringe IV 10/02/21 12:27 1 mg STAT ONE Administration Hydromorphone HCl Confirm 10/02/21 12:27 Hydromorphone 1 Mg/1ml Inj 1 Mg/Ml Syringe Administered 10/02/21 12:28 Dose 1 mg .ROUTE .STK-MED ONE Sodium Chloride 1,000 mls @ 999 mls/hr 10/02/21 11:31 10/02/21 14:25 Sodium Chloride 0.9% 1000 Ml IV 10/02/21 12:31 Infused .Q1H1M STA Infusion Sodium Chloride Confirm 10/02/21 11:35 Sodium Chloride 0.9% 1000 Ml Administered 10/02/21 11:36 Dose 1,000 mls @ ud .ROUTE .STK-MED ONE Levofloxacin/Dextrose 500 mg in 100 mls @ 100 mls/hr 10/02/21 12:24 10/02/21 14:25 Levofloxacin 500mg/100ml D5w IV 10/02/21 13:23 Infused STAT STA Infusion Metronidazole 500 mg in 100 mls @ 200 mls/hr 10/02/21 12:25 10/02/21 14:25 Flagyl 500 Mg Ivpb IV 10/02/21 12:54 Infused STAT STA Infusion Metronidazole Confirm 10/02/21 12:27 Flagyl 500 Mg Ivpb Administered 10/02/21 12:28 Dose 500 mg in 100 mls @ ud IV .STK-MED ONE Levofloxacin/Dextrose Confirm 10/02/21 12:41 Levofloxacin 500mg/100ml D5w Administered 10/02/21 12:42 Dose 500 mg in 100 mls @ ud IV .STK-MED ONE Morphine Sulfate 4 mg 10/02/21 11:34 10/02/21 11:39 Morphine Sulfate 4 Mg/Ml Injection IV 10/02/21 11:35 4 mg STAT ONE Administration Morphine Sulfate Confirm 10/02/21 11:35 Morphine Sulfate 4 Mg/Ml Injection Administered 10/02/21 11:36 Dose 4 mg .ROUTE .STK-MED ONE Ondansetron HCl 4 mg 10/02/21 11:34 10/02/21 11:38 Ondansetron Hcl 4 Mg/2 Ml Vial IV 10/02/21 11:35 4 mg STAT ONE Administration Ondansetron HCl Confirm 10/02/21 11:34 Ondansetron Hcl 4 Mg/2 Ml Vial Administered 10/02/21 11:35 Dose 4 mg .ROUTE .STK-MED ONE Lab/Rad Data: Laboratory Result Diagrams 10/02/21 12:45 10/02/21 12:45 Laboratory Results 10/02/21 10/02/21 10/02/21 Range/Units 12:55 12:45 12:45 WBC (4.0-10.5) K/mm3 RBC (4.1-5.4) M/mm3 Hgb (12.0-16.0) gm/dl Hct (35-47) % MCV (78-100) fl MCH (26-32) pg MCHC (32-36) g/dl RDW (11.5-14.0) % Plt Count (150-450) K/mm3 MPV (7.5-11.0) fl Gran % (36.0-66.0) % Eos # (Auto) (0-0.5) Absolute Lymphs (auto) (1.0-4.6) Absolute Monos (auto) (0.0-1.3) Lymphocytes % (24.0-44.0) % Monocytes % (0.0-12.0) % Eosinophils % (0.00-5.0) % Basophils % (0.0-0.4) % Absolute Granulocytes (1.4-6.9) Basophils # (0-0.4) Sodium 137 (137-145) mmol/L Potassium 3.6 (3.5-5.1) mmol/L Chloride 103 (98-107) mmol/L Carbon Dioxide 28 (22-30) mmol/L Anion Gap 9.2 (5-15) MEQ/L BUN 8 (7-17) mg/dL Creatinine 0.69 (0.52-1.04) mg/dL Estimated GFR > 60.0 ML/MIN Glucose 108 H (74-106) mg/dL Calcium 8.1 L (8.4-10.2) mg/dL Total Bilirubin 0.60 (0.2-1.3) mg/dL AST 25 (14-36) U/L ALT 14 (0-35) U/L Alkaline Phosphatase 65 (38-126) U/L Troponin I < 0.012 (0.000-0.034) ng/mL Serum Total Protein 6.7 (6.3-8.2) g/dL Albumin 3.9 (3.5-5.0) g/dL Lipase 29 (23-300) U/L Urine Color (YELLOW) Urine Appearance (CLEAR) Urine pH (5-6) Ur Specific [place] (1.005-1.025) Urine Protein (Negative) Urine Ketones (NEGATIVE) Urine Blood (0-5) [place]/ul Urine Nitrite (NEGATIVE) Urine Bilirubin (NEGATIVE) Urine Urobilinogen (0-1) mg/dL Ur Leukocyte Esterase (NEGATIVE) Urine WBC (Auto) (0-5) /HPF Urine RBC (Auto) (0-2) /HPF U Epithel Cells (Auto) (FEW) /HPF Urine Bacteria (Auto) (NEGATIVE) /HPF Urine Mucus (Auto) (NEGATIVE) /HPF Urine Culture Reflexed (NO) Urine Glucose (NEGATIVE) mg/dL Influenza Type A Ag NEGATIVE (NEGATIVE) Influenza Type B Ag NEGATIVE (NEGATIVE) RSV (PCR) NEGATIVE (Negative) SARS-CoV-2 (PCR) NEGATIVE (NEGATIVE) Slides for Path Review 10/02/21 10/02/21 Range/Units 12:45 11:38 WBC 12.8 H (4.0-10.5) K/mm3 RBC 4.32 (4.1-5.4) M/mm3 Hgb 10.9 L (12.0-16.0) gm/dl Hct 35.8 (35-47) % MCV 82.9 (78-100) fl MCH 25.2 L (26-32) pg MCHC 30.4 L (32-36) g/dl RDW 14.7 H (11.5-14.0) % Plt Count 309 (150-450) K/mm3 MPV 10.4 (7.5-11.0) fl Gran % 87.4 H (36.0-66.0) % Eos # (Auto) 0.09 (0-0.5) Absolute Lymphs (auto) 0.53 L (1.0-4.6) Absolute Monos (auto) 0.97 (0.0-1.3) Lymphocytes % 4.1 L (24.0-44.0) % Monocytes % 7.6 (0.0-12.0) % Eosinophils % 0.7 (0.00-5.0) % Basophils % 0.2 (0.0-0.4) % Absolute Granulocytes 11.18 H (1.4-6.9) Basophils # 0.03 (0-0.4) Sodium (137-145) mmol/L Potassium (3.5-5.1) mmol/L Chloride (98-107) mmol/L Carbon Dioxide (22-30) mmol/L Anion Gap (5-15) MEQ/L BUN (7-17) mg/dL Creatinine (0.52-1.04) mg/dL Estimated GFR ML/MIN Glucose (74-106) mg/dL Calcium (8.4-10.2) mg/dL Total Bilirubin (0.2-1.3) mg/dL AST (14-36) U/L ALT (0-35) U/L Alkaline Phosphatase (38-126) U/L Troponin I (0.000-0.034) ng/mL Serum Total Protein (6.3-8.2) g/dL Albumin (3.5-5.0) g/dL Lipase (23-300) U/L Urine Color YELLOW (YELLOW) Urine Appearance SLIGHTLY CLOUDY (CLEAR) Urine pH 7.0 (5-6) Ur Specific [place] 1.014 (1.005-1.025) Urine Protein NEGATIVE (Negative) Urine Ketones SMALL (NEGATIVE) Urine Blood SMALL (0-5) [place]/ul Urine Nitrite NEGATIVE (NEGATIVE) Urine Bilirubin NEGATIVE (NEGATIVE) Urine Urobilinogen NEGATIVE (0-1) mg/dL Ur Leukocyte Esterase NEGATIVE (NEGATIVE) Urine WBC (Auto) NONE (0-5) /HPF Urine RBC (Auto) NONE (0-2) /HPF U Epithel Cells (Auto) RARE (FEW) /HPF Urine Bacteria (Auto) NONE (NEGATIVE) /HPF Urine Mucus (Auto) SLIGHT (NEGATIVE) /HPF Urine Culture Reflexed NO (NO) Urine Glucose NEGATIVE (NEGATIVE) mg/dL Influenza Type A Ag (NEGATIVE) Influenza Type B Ag (NEGATIVE) RSV (PCR) (Negative) SARS-CoV-2 (PCR) (NEGATIVE) Slides for Path Review YES - Progress Progress: improved Progress Note: Patient reassessed. Pain significantly improved. Work-up reveals acute cholecystitis. Patient also has cholelithiasis in the gallbladder neck. Case discussed with Dr. Dao who advises admitting patient to medical doctor. We will maintain NPO. Antibiotics infused. A surgeon from the [facility] will evaluate the patient and likely perform the procedure later on today. Case discussed with Dr. Fraser who accepts admission to observation. Plan of care discussed with patient. She agrees to admission his only [facility] for further evaluation and treatment. She voices no other complaints or concerns at this time. Portions of this note were created with voice recognition technology. There may be grammatical, spelling, punctuation or sound alike errors 10/02/21 15:13 Patient's last meal was yesterday evening 10/02/21 15:[address] Yulia Abdalla Will see patient in: hospital (observation) Counseled pt/family regarding: lab results, diagnosis, rad results - Departure Departure Disposition: Home Clinical Impression: Hiatal hernia, Acute cholecystitis, Renal cyst, Hepatic hemangioma, Cholelithiasis Condition: Stable Critical Care Time: No Referrals: DOCTOR,NO FAMILY [Primary Care Provider] - Follow up/PCP as directed
--- NOTE | 2021-10-02 12:16 | XRAY ---
Indication: Right abdomen pain, nausea, vomiting, and constipation. Status post colonoscopy last week. Multiple contiguous images obtained through the abdomen and pelvis using 80 cc Isovue 370 contrast. Comparison: January 17, 2011. Lung bases demonstrates minimal right posterior gutter fibrosis/scarring. No infiltrate or effusion. Heart not enlarged. New small hiatal hernia. Noncontrasted stomach and bowel loops nonobstructed. Mild fecal debris in the ascending and lesser degree transverse colon. There is now abnormal distended gallbladder with two 1.5 cm gallstones near the neck of the gallbladder. Also abnormal gallbladder wall thickening/enhancement and pericholecystic fluid favoring acute cholecystitis. Liver again demonstrates at least 4-5 hemangiomas, largest right lobe near the dome of the diaphragm measuring 3.5 cm. Both kidneys enhance and excrete with stable 1 cm right mid renal cortical cyst. Remaining pancreas, spleen, adrenal glands, kidneys, ureters, bladder, uterus, and aorta are unremarkable. No pathologic retroperitoneal lymphadenopathy. Osseous structures intact. Impression: 1. New cholelithiasis with new CT features favoring acute cholecystitis. 2. New small hiatal hernia. 3. Again incidental hepatic hemangiomas and small right renal cyst.
[2021-10-02] MEDS ORDERED: Levofloxacin 500MG/100ML D5W 500 MG/100 ML BAG IV STA (12:24)
[2021-10-02] MEDS ORDERED: FLAGYL 500 MG IVPB 500 MG/100 ML BAG IV STA (12:25)
[2021-10-02] MEDS ORDERED: Hydromorphone 1 mg/ml Injection IV ONE (12:26)
[2021-10-02] MEDS ORDERED: FLAGYL 500 MG IVPB 500 MG/100 ML BAG IV ONE (12:27)
[2021-10-02] MEDS ORDERED: Hydromorphone 1 mg/ml Injection ONE (12:27)
[2021-10-02] MEDS ORDERED: Levofloxacin 500MG/100ML D5W 500 MG/100 ML BAG IV ONE (12:41)
--- NOTE | 2021-10-02 12:44 | XRAY ---
Indication: Right upper quadrant pain. Two-dimensional gallbladder sonogram performed. Comparison: None Abnormal distended gallbladder with 1.7 cm gallstone near the neck. Small 1.6 cm gallstone. Also abnormal gallbladder wall thickening up to 6 mm. No pericholecystic fluid. Common bile duct measures 5 mm. No intrahepatic biliary distention. Visualized liver demonstrates CT proven hepatic hemangiomas, largest 2.3 cm near the dome of the diaphragm. Remaining visualized pancreas and right kidney are sonographically unremarkable. Impression: 1. Cholelithiasis with abnormal wall thickening favoring cholecystitis. 2. CT proven hepatic hemangiomas.
[2021-10-02 12:45] LABS: Appearance SLIGHTLY CLOUDY (CLEAR); Bilirubin NEGATIVE (NEGATIVE); Blood SMALL Ery/ul (0-5); Epithelial Cells RARE /HPF (FEW); Glucose NEGATIVE (NEGATIVE); Ketones SMALL (NEGATIVE); Leukocyte Esterase NEGATIVE (NEGATIVE); Mucus SLIGHT /HPF (NEGATIVE); Nitrite NEGATIVE (NEGATIVE); Protein,Urine Dip NEGATIVE (Negative); Specific Gravity 1.014 (1.005-1.025); Urobilinogen NEGATIVE mg/dL (0-1)
[2021-10-02 12:47] LABS: Absolute Neutrophil Ct (ANC) 11.18 (1.4-6.9); Basophil (Absolute #) 0.03 (0-0.4); Eosinophil % 0.7 % (0.00-5.0); Eosinophil (Absolute #) 0.09 (0-0.5); Hematocrit 35.8 % (35-47); Hemoglobin 10.9 gm/dl (12.0-16.0); Lymphocyte (Absolute #) 0.53 (1.0-4.6); Lymphocytes % 4.1 % (24.0-44.0); Mean Cell Volume 82.9 fl (78-100); Mean Corpuscular Hemoglobin 25.2 pg (26-32); Mean Corpuscular Hgb Concent. 30.4 g/dl (32-36); Mean Platelet Volume 10.4 fl (7.5-11.0); Monocyte (Absolute #) 0.97 (0.0-1.3); Monocytes % 7.6 % (0.0-12.0); Neutrophil % 87.4 % (36.0-66.0); Platelet Count 309 K/mm3 (150-450); Red Blood Count 4.32 M/mm3 (4.1-5.4); Red Cell Distribution Width 14.7 % (11.5-14.0); White Blood Count 12.8 K/mm3 (4.0-10.5)
[2021-10-02 13:02] LABS: ALBUMIN 3.9 g/dL (3.5-5.0); ALKALINE PHOSPHATASE 65 U/L (38-126); ANION GAP 9.2 MEQ/L (5-15); BLOOD UREA NITROGEN 8 mg/dL (7-17); CHLORIDE 103 mmol/L (98-107); Calcium 8.1 mg/dL (8.4-10.2); Carbon Dioxide 28 mmol/L (22-30); Creatinine 1 0.69 mg/dL (0.52-1.04); EST GLOMERULAR FILTRATION RATE > 60.0 ML/MIN; Glucose 108 mg/dL (74-106); LIPASE 29 U/L (23-300); Potassium 3.6 mmol/L (3.5-5.1); SGOT/AST 25 U/L (14-36); SGPT/ALT 14 U/L (0-35); SODIUM 137 mmol/L (137-145); Total Protein 6.7 g/dL (6.3-8.2)
[2021-10-02 13:53] LABS: INFLUENZA A NEGATIVE (NEGATIVE); INFLUENZA B NEGATIVE (NEGATIVE); RESPIRATORY SYNCTIAL VIRUS NEGATIVE (Negative); SARS-CoV-2 Xpert Express NEGATIVE (NEGATIVE)
[2021-10-02 14:22] LABS: Slide Review 1 YES
[2021-10-02] MEDS ORDERED: Hydromorphone 1 mg/ml Injection IV PRN (15:23)
[2021-10-02] MEDS ORDERED: Zofran 4 MG/2 ML VIAL IV PRN ×2 (15:23→17:14)
[2021-10-02] MEDS: Sodium Chloride 0.9% 1000 ML 1,000 ML IV SCH (15:46)
[2021-10-02] MEDS ORDERED: VERSED 5 MG/5 ML IV SCH (16:45)
[2021-10-02] MEDS ORDERED: Levofloxacin 500MG/100ML D5W 500 MG/100 ML BAG IV SCH (16:45)
[2021-10-02] MEDS ORDERED: Transderm Scop 1.5MG Patch TOP SCH (17:00)
[2021-10-02] MEDS ORDERED: Lactated Ringers 1,000 ML IV SCH (17:00)
[2021-10-02] MEDS ORDERED: Reglan 10 MG/2 ML IV SCH (17:00)
[2021-10-02] MEDS ORDERED: CLINDAMYCIN-D5W 900 MG/50 ML*** 900 MG/50 ML BAG IV SCH (17:00)
[2021-10-02] MEDS ORDERED: Narcan 0.4 MG/ML IV PRN (17:00)
--- NOTE | 2021-10-02 17:03 | PCM.HP ---
History of Present Illness - Chief Complaint Chief Complaint: Acute cholecystitis History of Present Illness: is a 50 year old female who represented to ER with N/V and RUQ abdominal pain 06/25.Work up shows gall stones with a stone in the neck of the gall bladder. Patient is admitted to [facility] . Is on IV fluids and antibiotic. Dilaudid pain pump is controlling pain. PMHx - Patient is a smoker 1/2-1ppd,asthma,Hypothyroid ,arthritis of the knees, anemia. - Review of Systems Constitutional: Chills Eyes: No Symptoms Ears, Nose, & Throat: No Symptoms Respiratory: No Symptoms Cardiac: Other (right ant rib pain,referred from GB,negative troponins) Abdominal/Gastrointestinal: Abdominal Pain, Nausea, Vomiting Genitourinary Symptoms: No Symptoms Musculoskeletal: No Symptoms Skin: No Symptoms Neurological: No Symptoms Endocrine: Other (c/o thyroid feel swollen,is taking thyroid meds daily as prescribed) Medications & Allergies Home Medications: Home Medication List Fluticasone/Vilanterol [Breo Ellipta 100-25 Mcg INH] 1 ea IH DAILY 04/02/18 [History Confirmed 10/02/21] Gabapentin [Neurontin] 300 mg PO BID 04/02/18 [History Confirmed 10/02/21] Levothyroxine Sodium 50 Mcg [Synthroid 50 Mcg] 100 mcg PO DAILY 04/02/18 [History Confirmed 10/02/21] Albuterol Sulfate [Proair Hfa] 8.5 gm IH Q4HPRN PRN 09/27/21 [History Confirmed 10/02/21] Hydrocodone/Acetaminophen [Hydrocodone-Acetamin 5-325 mg] 1 tab PO Q6HPRN PRN 7 Days #20 tablet MDD 4 10/02/21 [Rx] Allergies/Adverse Reactions: Allergies Allergy/AdvReac Type Severity Reaction Status Date / Time Penicillins Allergy unknown Verified 10/02/21 11:23 - Past Medical History Past Medical History: Yes Neurological History: No Pertinent History ENT History: No Pertinent History Cardiac History: No Pertinent History Respiratory History: Asthma, COPD, Pneumonia Endocrine Medical History: Hypothyroidism Musculoskelatal History: No Pertinent History GI Medical History: No Pertinent History History: No Pertinent History Pyscho-Social History: Anxiety Reproductive Disorders: Other Comment: cervical cell abnormality. left knee bone spur/arthritis. anemia- iron def - Female History Are you now?: No - Past Surgical History Past Surgical History: Yes Neuro Surgical History: No Pertinent History Cardiac History: No Pertinent History Respiratory Surgery: No Pertinent History GI Surgical History: Exploratory Laparoscopy Genitourinary Surgical Hx: No Pertinent History Musculskeletal Surgical Hx: Orthopedic Surgery Female Surgical History: Section, Other Other Surgical History: LEEP, bone spur,. ovarian cystectomy - Social History Smoking Status: Current every day smoker How long have you smoked: 30 years Exposure to second hand smoke: No Alcohol: Rarely Drug Use: none - Physical Exam Vital Signs: Vital Signs - 24 hr Temp Pulse Resp BP Pulse Ox 10/02/21 16:31 98.7 F 111 H 20 122/65 97 10/02/21 16:00 98.7 F 111 H 20 122/65 97 10/02/21 15:26 98.7 F 111 H 20 122/65 97 10/02/21 15:19 97 10/02/21 15:00 92 H 16 97 10/02/21 13:00 95 H 16 126/74 98 10/02/21 12:24 92 H 18 113/66 93 L 10/02/21 11:27 98.1 F 109 H 18 123/68 97 General Appearance: mild distress (nauseated but pain is controlled at this time on Diladid) Neurologic Exam: alert (and able to answer questions approprialy but is groggy from pain med), oriented x 3, cooperative Eye Exam: eyes nml inspection Ears, Nose, Throat Exam: normal ENT inspection Neck Exam: non-tender, thyromegaly (mildy enlarged,soft,nontender) Respiratory Exam: normal breath sounds (no wheeze or ronchi or rales) Cardiovascular Exam: tachycardia (regular no murmur) Gastrointestinal/Abdomen Exam: soft (present), tenderness (RUQto right flank), guarding Pelvic Exam: not done Rectal Exam: not done Back Exam: normal inspection Extremity Exam: normal inspection (no edema) Skin Exam: normal color, warm, dry Results - Labs Lab/Micro Results: Lab Results-Last 24 Hours 10/02/21 10/02/21 10/02/21 Range/Units 11:38 12:45 12:45 WBC 12.8 H (4.0-10.5) K/mm3 RBC 4.32 (4.1-5.4) M/mm3 Hgb 10.9 L (12.0-16.0) gm/dl Hct 35.8 (35-47) % MCV 82.9 (78-100) fl MCH 25.2 L (26-32) pg MCHC 30.4 L (32-36) g/dl RDW 14.7 H (11.5-14.0) % Plt Count 309 (150-450) K/mm3 MPV 10.4 (7.5-11.0) fl Gran % 87.4 H (36.0-66.0) % Eos # (Auto) 0.09 (0-0.5) Absolute Lymphs (auto) 0.53 L (1.0-4.6) Absolute Monos (auto) 0.97 (0.0-1.3) Lymphocytes % 4.1 L (24.0-44.0) % Monocytes % 7.6 (0.0-12.0) % Eosinophils % 0.7 (0.00-5.0) % Basophils % 0.2 (0.0-0.4) % Absolute Granulocytes 11.18 H (1.4-6.9) Basophils # 0.03 (0-0.4) Sodium 137 (137-145) mmol/L Potassium 3.6 (3.5-5.1) mmol/L Chloride 103 (98-107) mmol/L Carbon Dioxide 28 (22-30) mmol/L Anion Gap 9.2 (5-15) MEQ/L BUN 8 (7-17) mg/dL Creatinine 0.69 (0.52-1.04) mg/dL Estimated GFR > 60.0 ML/MIN Glucose 108 H (74-106) mg/dL Calcium 8.1 L (8.4-10.2) mg/dL Total Bilirubin 0.60 (0.2-1.3) mg/dL AST 25 (14-36) U/L ALT 14 (0-35) U/L Alkaline Phosphatase 65 (38-126) U/L Troponin I (0.000-0.034) ng/mL Serum Total Protein 6.7 (6.3-8.2) g/dL Albumin 3.9 (3.5-5.0) g/dL Lipase 29 (23-300) U/L Urine Color YELLOW (YELLOW) Urine Appearance SLIGHTLY CLOUDY (CLEAR) Urine pH 7.0 (5-6) Ur Specific [place] 1.014 (1.005-1.025) Urine Protein NEGATIVE (Negative) Urine Ketones SMALL (NEGATIVE) Urine Blood SMALL (0-5) [place]/ul Urine Nitrite NEGATIVE (NEGATIVE) Urine Bilirubin NEGATIVE (NEGATIVE) Urine Urobilinogen NEGATIVE (0-1) mg/dL Ur Leukocyte Esterase NEGATIVE (NEGATIVE) Urine WBC (Auto) NONE (0-5) /HPF Urine RBC (Auto) NONE (0-2) /HPF U Epithel Cells (Auto) RARE (FEW) /HPF Urine Bacteria (Auto) NONE (NEGATIVE) /HPF Urine Mucus (Auto) SLIGHT (NEGATIVE) /HPF Urine Culture Reflexed NO (NO) Urine Glucose NEGATIVE (NEGATIVE) mg/dL Influenza Type A Ag (NEGATIVE) Influenza Type B Ag (NEGATIVE) RSV (PCR) (Negative) SARS-CoV-2 (PCR) (NEGATIVE) Slides for Path Review YES 10/02/21 10/02/21 10/02/21 Range/Units 12:45 12:55 15:40 WBC (4.0-10.5) K/mm3 RBC (4.1-5.4) M/mm3 Hgb (12.0-16.0) gm/dl Hct (35-47) % MCV (78-100) fl MCH (26-32) pg MCHC (32-36) g/dl RDW (11.5-14.0) % Plt Count (150-450) K/mm3 MPV (7.5-11.0) fl Gran % (36.0-66.0) % Eos # (Auto) (0-0.5) Absolute Lymphs (auto) (1.0-4.6) Absolute Monos (auto) (0.0-1.3) Lymphocytes % (24.0-44.0) % Monocytes % (0.0-12.0) % Eosinophils % (0.00-5.0) % Basophils % (0.0-0.4) % Absolute Granulocytes (1.4-6.9) Basophils # (0-0.4) Sodium (137-145) mmol/L Potassium (3.5-5.1) mmol/L Chloride (98-107) mmol/L Carbon Dioxide (22-30) mmol/L Anion Gap (5-15) MEQ/L BUN (7-17) mg/dL Creatinine (0.52-1.04) mg/dL Estimated GFR ML/MIN Glucose (74-106) mg/dL Calcium (8.4-10.2) mg/dL Total Bilirubin (0.2-1.3) mg/dL AST (14-36) U/L ALT (0-35) U/L Alkaline Phosphatase (38-126) U/L Troponin I < 0.012 < 0.012 (0.000-0.034) ng/mL Serum Total Protein (6.3-8.2) g/dL Albumin (3.5-5.0) g/dL Lipase (23-300) U/L Urine Color (YELLOW) Urine Appearance (CLEAR) Urine pH (5-6) Ur Specific [place] (1.005-1.025) Urine Protein (Negative) Urine Ketones (NEGATIVE) Urine Blood (0-5) [place]/ul Urine Nitrite (NEGATIVE) Urine Bilirubin (NEGATIVE) Urine Urobilinogen (0-1) mg/dL Ur Leukocyte Esterase (NEGATIVE) Urine WBC (Auto) (0-5) /HPF Urine RBC (Auto) (0-2) /HPF U Epithel Cells (Auto) (FEW) /HPF Urine Bacteria (Auto) (NEGATIVE) /HPF Urine Mucus (Auto) (NEGATIVE) /HPF Urine Culture Reflexed (NO) Urine Glucose (NEGATIVE) mg/dL Influenza Type A Ag NEGATIVE (NEGATIVE) Influenza Type B Ag NEGATIVE (NEGATIVE) RSV (PCR) NEGATIVE (Negative) SARS-CoV-2 (PCR) NEGATIVE (NEGATIVE) Slides for Path Review - Radiology Impressions Radiology Exams & Impressions: Radiology Procedures Category Date Time Status ABDOMEN AND PELVIS W CONTRAST [CT] Stat Exams 10/02/21 12:01 Completed GALLBLADDER [US] Stat Exams 10/02/21 11:42 Completed - Other Procedures and Tests Respiratory Therapy 10/02/21 16:43 Smoking Cessation Education ONCE Assessment/Plan (1) Acute cholecystitis Current Visit: Yes Status: Acute Assessment & Plan: Surgery planned for AM,patient is comfortable on pain pump Code(s): K81.0 - ACUTE CHOLECYSTITIS (2) Smoker Current Visit: Yes Status: Chronic Assessment & Plan: no respiratory difficulties currently Code(s): F17.200 - NICOTINE DEPENDENCE, UNSPECIFIED, UNCOMPLICATED (3) Hypothyroidism Current Visit: No Status: Chronic Assessment & Plan: thyroid is mildly enlarged and TSH mildly elevated on current dose of Levothyroxine,TPO ordered Code(s): E03.9 - HYPOTHYROIDISM, UNSPECIFIED
[2021-10-02] MEDS: DILAUDID 1 MG/1ML PCA IV PRN ×2 (17:07→19:21)
[2021-10-02] MEDS ORDERED: Ventolin Hfa MDI IH PRN (17:10)
[2021-10-02] MEDS ORDERED: PHENERGAN 25 MG PO ONE (17:11)
[2021-10-02] MEDS ORDERED: VENTOLIN COMMON CANISTER IH PRN (17:13)
[2021-10-02] MEDS ORDERED: MEDICATION INTERVENTION MC SCH (17:30)
[2021-10-02 18:40] LABS: MAGNESIUM 1.8 mg/dL (1.6-2.3); TSH, 3RD Generation 6.53 mIU/L (0.47-4.68)
[2021-10-02] MEDS ORDERED: Sodium Chloride 3 ML UD NEBULES IH ONE ×2 (18:47→18:58)
[2021-10-02] MEDS ORDERED: Xopenex 1.25 MG/0.5 ML UD NEBULE IH ONE ×2 (18:47→18:52)
[2021-10-02] MEDS: Advair Hfa 115/21 Common canister IH SCH (18:53)
[2021-10-02] MEDS: SYNTHROID 100 MCG PO SCH (19:14)
[2021-10-02] MEDS ORDERED: OFIRMEV 1,000 MG/100 ML ML IV ONE (19:34)
[2021-10-02] MEDS ORDERED: Lactated Ringers 1,000 ML IV ONE (19:39)
[2021-10-02] MEDS ORDERED: Sensorcaine 0.25% 10 ML ONE (19:39)
[2021-10-02] MEDS ORDERED: Xylocaine-Mpf 2% 5 Ml Vial ONE (19:45)
[2021-10-02] MEDS ORDERED: Decadron 4 MG INJ ONE ×2 (19:45→19:52)
[2021-10-02] MEDS ORDERED: DIPRIVAN 200 MG/20 ML IV ONE (19:45)
[2021-10-02] MEDS ORDERED: Zemuron 100 MG/10 ML ONE (19:45)
[2021-10-02] MEDS ORDERED: Quelicin Fliptop 200 MG/10 ML ONE (19:45)
[2021-10-02] MEDS ORDERED: SUBLIMAZE 100 MCG/2 ML ONE (19:46)
[2021-10-02] MEDS ORDERED: Pre-Attached Lta Kit TP ONE (19:53)
--- NOTE | 2021-10-02 20:06 | PCM.CONS ---
History of Present Illness - Reason for Consult Chief Complaint: Acute cholecystitis Requesting Provider: JODEE RAMON DO Consulting Provider: MARKOS MCDONOUGH MD History of Present Illness: hx per chart review and d/w pt . pt presents with ruq abd pain. shart constant severe. starting 10/01. imaging with acute cholecystitis. hx cesarian, and ? possibly a tubal. pt not sure whast other abdominal surgery. "Patient Subjective Stated Complaint: Abdominal pain Triage Nursing Assessment: Patient ambulated back to ED and transferred self to bed. Patient A+O X 3. Patient's skin flushed, warm and dry. Patient complains of abdominal pain 10/10 constant aching pain with intermittent sharp pain. Rebound tenderness noted to RUQ. Patient also complains of N/V. Abdomen soft and round with BS X 4. Physician History: Patient is a 50-year-old female presents to our ED with complaints of epigastric and right upper quadrant pain. Pain started yesterday. Patient was in our ED yesterday. Patient was evaluated for chest pain that radiated to her back. Patient states she was discharged home she felt well. However earlier this morning pain recurred. Pain localized to the right upper quadrant. Patient experienced nausea and vomiting. No trauma. No fever. Abdominal pain rated 10 out of 10. Pain worse with palpation to right upper quadrant. Pain improved with rest. Patient voices no other complaints or concerns at this time. Timing/Duration: yesterday Activities at Onset: none Quality: aching Abdominal Pain Onset Location: RUQ Pain Radiation: back Severity of Pain-Max: moderate Severity of Pain-Current: moderate Modifying Factors: Improves With: palpation (Palpation to right upper quadrant reproduces pain.) Associated Symptoms: nausea, vomiting Previous symptoms: no prior history Allergies/Adverse Reactions: Penicillins Allergy (Verified 10/02/21 11:23) unknown Home Medications: Fluticasone/Vilanterol [Breo Ellipta 100-25 Mcg INH] 1 ea IH DAILY 04/02/18 [History] Gabapentin [Neurontin] 300 mg PO BID 04/02/18 [History] Levothyroxine Sodium 50 Mcg [Synthroid 50 Mcg] 100 mcg PO DAILY 04/02/18 [History] Albuterol Sulfate [Proair Hfa] 8.5 gm IH Q4HPRN PRN 09/27/21 [History] Hx Tetanus, Diphtheria Vaccination/Date Given: Yes (UNKOWN) Hx Influenza Vaccination/Date Given: No (REFUSE) Hx Pneumococcal Vaccination/Date Given: No (REFUSE) Immunizations Up to Date: Yes Travel Risk - International Travel Have you traveled outside of the country in past 3 weeks: No - Coronavirus Screening Are you exhibiting any of the following symptoms?: No Close contact with a COVID-19 positive Pt in past 14-21 Days: No - Vaccine Status Have you recieved a Covid-19 vaccination: Yes [employer]: Moderna - Vaccination Dates Date of 2cond Vaccination (if applicable): February 2021 - Review of Systems Constitutional: No Symptoms, No Fever, No Chills Eyes: No Symptoms Ears, Nose, & Throat: No Symptoms Respiratory: No Symptoms, No Cough, No Dyspnea Cardiac: No Symptoms, No Chest Pain, No Edema, No Syncope Abdominal/Gastrointestinal: No Symptoms, No Abdominal Pain, No Nausea, No Vomiting, No Diarrhea Genitourinary Symptoms: No Symptoms, No Dysuria Musculoskeletal: No Symptoms, No Back Pain, No Neck Pain Skin: No Symptoms, No Rash Neurological: No Symptoms, No Dizziness, No Focal Weakness, No Sensory Changes Psychological: No Symptoms Endocrine: No Symptoms Hematologic/Lymphatic: No Symptoms Immunological/Allergic: No Symptoms All Other Systems: Reviewed and Negative - Past Medical History Pertinent Past Medical History: Yes Neurological History: No Pertinent History ENT History: No Pertinent History Cardiac History: No Pertinent History Respiratory History: Asthma, COPD, Pneumonia Endocrine Medical History: Hypothyroidism Musculoskeletal History: No Pertinent History GI Medical History: No Pertinent History History: No Pertinent History Psycho-Social History: Anxiety Female Reproductive Disorders: Other Other Medical History: cervical cell abnormality. left knee bone spur/arthritis. anemia- iron def - Past Surgical History Past Surgical History: Yes Neuro Surgical History: No Pertinent History Cardiac: No Pertinent History Respiratory: No Pertinent History Gastrointestinal: Exploratory Laparoscopy Genitourinary: No Pertinent History Musculoskeletal: Orthopedic Surgery Female Surgical History: Section, Other Other Surgical History: LEEP, bone spur,. ovarian cystectomy - Social History Smoking Status: Current every day smoker How long have you smoked: 30 years Exposure to second hand smoke: No Drug Use: none Patient Lives Alone: No" Medications & Allergies Home Medications: Home Medication List Fluticasone/Vilanterol [Breo Ellipta 100-25 Mcg INH] 1 ea IH DAILY 04/02/18 [History Confirmed 10/02/21] Gabapentin [Neurontin] 300 mg PO BID 04/02/18 [History Confirmed 10/02/21] Levothyroxine Sodium 50 Mcg [Synthroid 50 Mcg] 100 mcg PO DAILY 04/02/18 [History Confirmed 10/02/21] Albuterol Sulfate [Proair Hfa] 8.5 gm IH Q4HPRN PRN 09/27/21 [History Confirmed 10/02/21] Allergies/Adverse Reactions: Allergies Allergy/AdvReac Type Severity Reaction Status Date / Time Penicillins Allergy unknown Verified 10/02/21 11:23 - Past Medical History Past Medical History: Yes Neurological History: No Pertinent History ENT History: No Pertinent History Cardiac History: No Pertinent History Respiratory History: Asthma, COPD, Pneumonia Endocrine Medical History: Hypothyroidism Musculoskelatal History: No Pertinent History GI Medical History: No Pertinent History History: No Pertinent History Pyscho-Social History: Anxiety Reproductive Disorders: Other Comment: cervical cell abnormality. left knee bone spur/arthritis. anemia- iron def - Female History Are you now?: No - Past Surgical History Past Surgical History: Yes Neuro Surgical History: No Pertinent History Cardiac History: No Pertinent History Respiratory Surgery: No Pertinent History GI Surgical History: Exploratory Laparoscopy Genitourinary Surgical Hx: No Pertinent History Musculskeletal Surgical Hx: Orthopedic Surgery Female Surgical History: Section, Other Other Surgical History: LEEP, bone spur,. ovarian cystectomy - Social History Smoking Status: Current every day smoker How long have you smoked: 30 years Exposure to second hand smoke: No Alcohol: Rarely Drug Use: none - Physical Exam Vital Signs: Vital Signs - 24 hr Temp Pulse Resp BP Pulse Ox 10/02/21 19:51 102.0 F 111 H 18 122/65 89 L 10/02/21 19:22 101 F 111 H 18 122/65 89 L 10/02/21 19:21 89 L 10/02/21 19:07 95 10/02/21 18:53 120 H 16 89 L 10/02/21 18:00 98.7 F 104 H 18 122/65 97 10/02/21 17:33 104 H 18 97 10/02/21 17:07 97 10/02/21 17:00 98.7 F 111 H 20 122/65 97 10/02/21 16:31 98.7 F 111 H 20 122/65 97 10/02/21 16:00 98.7 F 111 H 20 122/65 97 10/02/21 15:26 98.7 F 111 H 20 122/65 97 10/02/21 15:19 97 10/02/21 15:00 92 H 16 97 10/02/21 13:00 95 H 16 126/74 98 10/02/21 12:24 92 H 18 113/66 93 L 10/02/21 11:27 98.1 F 109 H 18 123/68 97 General Appearance: no apparent distress Neurologic Exam: alert, oriented x 3 Eye Exam: eyes nml inspection, No scleral icterus Neck Exam: normal inspection Respiratory Exam: No respiratory distress, No stridor Cardiovascular Exam: regular rate/rhythm, capillary refill <2 sec Gastrointestinal/Abdomen Exam: soft, tenderness, other (ttp ruq + darby. no r/g otherwise.), No hepatomegaly, No splenomegaly Pelvic Exam: deferred Rectal Exam: deferred Extremity Exam: normal inspection Skin Exam: warm, dry Results - Labs Lab/Micro Results: Lab Results-Last 24 Hours 10/02/21 10/02/21 10/02/21 Range/Units 11:38 12:45 12:45 WBC 12.8 H (4.0-10.5) K/mm3 RBC 4.32 (4.1-5.4) M/mm3 Hgb 10.9 L (12.0-16.0) gm/dl Hct 35.8 (35-47) % MCV 82.9 (78-100) fl MCH 25.2 L (26-32) pg MCHC 30.4 L (32-36) g/dl RDW 14.7 H (11.5-14.0) % Plt Count 309 (150-450) K/mm3 MPV 10.4 (7.5-11.0) fl Gran % 87.4 H (36.0-66.0) % Eos # (Auto) 0.09 (0-0.5) Absolute Lymphs (auto) 0.53 L (1.0-4.6) Absolute Monos (auto) 0.97 (0.0-1.3) Lymphocytes % 4.1 L (24.0-44.0) % Monocytes % 7.6 (0.0-12.0) % Eosinophils % 0.7 (0.00-5.0) % Basophils % 0.2 (0.0-0.4) % Absolute Granulocytes 11.18 H (1.4-6.9) Basophils # 0.03 (0-0.4) Sodium 137 (137-145) mmol/L Potassium 3.6 (3.5-5.1) mmol/L Chloride 103 (98-107) mmol/L Carbon Dioxide 28 (22-30) mmol/L Anion Gap 9.2 (5-15) MEQ/L BUN 8 (7-17) mg/dL Creatinine 0.69 (0.52-1.04) mg/dL Estimated GFR > 60.0 ML/MIN Glucose 108 H (74-106) mg/dL Calcium 8.1 L (8.4-10.2) mg/dL Magnesium (1.6-2.3) mg/dL Total Bilirubin 0.60 (0.2-1.3) mg/dL AST 25 (14-36) U/L ALT 14 (0-35) U/L Alkaline Phosphatase 65 (38-126) U/L Troponin I (0.000-0.034) ng/mL Serum Total Protein 6.7 (6.3-8.2) g/dL Albumin 3.9 (3.5-5.0) g/dL Lipase 29 (23-300) U/L TSH 3rd Generation (0.47-4.68) mIU/L Urine Color YELLOW (YELLOW) Urine Appearance SLIGHTLY CLOUDY (CLEAR) Urine pH 7.0 (5-6) Ur Specific [place] 1.014 (1.005-1.025) Urine Protein NEGATIVE (Negative) Urine Ketones SMALL (NEGATIVE) Urine Blood SMALL (0-5) [place]/ul Urine Nitrite NEGATIVE (NEGATIVE) Urine Bilirubin NEGATIVE (NEGATIVE) Urine Urobilinogen NEGATIVE (0-1) mg/dL Ur Leukocyte Esterase NEGATIVE (NEGATIVE) Urine WBC (Auto) NONE (0-5) /HPF Urine RBC (Auto) NONE (0-2) /HPF U Epithel Cells (Auto) RARE (FEW) /HPF Urine Bacteria (Auto) NONE (NEGATIVE) /HPF Urine Mucus (Auto) SLIGHT (NEGATIVE) /HPF Urine Culture Reflexed NO (NO) Urine Glucose NEGATIVE (NEGATIVE) mg/dL Influenza Type A Ag (NEGATIVE) Influenza Type B Ag (NEGATIVE) RSV (PCR) (Negative) SARS-CoV-2 (PCR) (NEGATIVE) Slides for Path Review YES 10/02/21 10/02/21 10/02/21 Range/Units 12:45 12:55 15:40 WBC (4.0-10.5) K/mm3 RBC (4.1-5.4) M/mm3 Hgb (12.0-16.0) gm/dl Hct (35-47) % MCV (78-100) fl MCH (26-32) pg MCHC (32-36) g/dl RDW (11.5-14.0) % Plt Count (150-450) K/mm3 MPV (7.5-11.0) fl Gran % (36.0-66.0) % Eos # (Auto) (0-0.5) Absolute Lymphs (auto) (1.0-4.6) Absolute Monos (auto) (0.0-1.3) Lymphocytes % (24.0-44.0) % Monocytes % (0.0-12.0) % Eosinophils % (0.00-5.0) % Basophils % (0.0-0.4) % Absolute Granulocytes (1.4-6.9) Basophils # (0-0.4) Sodium (137-145) mmol/L Potassium (3.5-5.1) mmol/L Chloride (98-107) mmol/L Carbon Dioxide (22-30) mmol/L Anion Gap (5-15) MEQ/L BUN (7-17) mg/dL Creatinine (0.52-1.04) mg/dL Estimated GFR ML/MIN Glucose (74-106) mg/dL Calcium (8.4-10.2) mg/dL Magnesium (1.6-2.3) mg/dL Total Bilirubin (0.2-1.3) mg/dL AST (14-36) U/L ALT (0-35) U/L Alkaline Phosphatase (38-126) U/L Troponin I < 0.012 < 0.012 (0.000-0.034) ng/mL Serum Total Protein (6.3-8.2) g/dL Albumin (3.5-5.0) g/dL Lipase (23-300) U/L TSH 3rd Generation (0.47-4.68) mIU/L Urine Color (YELLOW) Urine Appearance (CLEAR) Urine pH (5-6) Ur Specific [place] (1.005-1.025) Urine Protein (Negative) Urine Ketones (NEGATIVE) Urine Blood (0-5) [place]/ul Urine Nitrite (NEGATIVE) Urine Bilirubin (NEGATIVE) Urine Urobilinogen (0-1) mg/dL Ur Leukocyte Esterase (NEGATIVE) Urine WBC (Auto) (0-5) /HPF Urine RBC (Auto) (0-2) /HPF U Epithel Cells (Auto) (FEW) /HPF Urine Bacteria (Auto) (NEGATIVE) /HPF Urine Mucus (Auto) (NEGATIVE) /HPF Urine Culture Reflexed (NO) Urine Glucose (NEGATIVE) mg/dL Influenza Type A Ag NEGATIVE (NEGATIVE) Influenza Type B Ag NEGATIVE (NEGATIVE) RSV (PCR) NEGATIVE (Negative) SARS-CoV-2 (PCR) NEGATIVE (NEGATIVE) Slides for Path Review 10/02/21 10/02/21 Range/Units 17:35 17:35 WBC (4.0-10.5) K/mm3 RBC (4.1-5.4) M/mm3 Hgb (12.0-16.0) gm/dl Hct (35-47) % MCV (78-100) fl MCH (26-32) pg MCHC (32-36) g/dl RDW (11.5-14.0) % Plt Count (150-450) K/mm3 MPV (7.5-11.0) fl Gran % (36.0-66.0) % Eos # (Auto) (0-0.5) Absolute Lymphs (auto) (1.0-4.6) Absolute Monos (auto) (0.0-1.3) Lymphocytes % (24.0-44.0) % Monocytes % (0.0-12.0) % Eosinophils % (0.00-5.0) % Basophils % (0.0-0.4) % Absolute Granulocytes (1.4-6.9) Basophils # (0-0.4) Sodium (137-145) mmol/L Potassium (3.5-5.1) mmol/L Chloride (98-107) mmol/L Carbon Dioxide (22-30) mmol/L Anion Gap (5-15) MEQ/L BUN (7-17) mg/dL Creatinine (0.52-1.04) mg/dL Estimated GFR ML/MIN Glucose (74-106) mg/dL Calcium (8.4-10.2) mg/dL Magnesium 1.8 (1.6-2.3) mg/dL Total Bilirubin (0.2-1.3) mg/dL AST (14-36) U/L ALT (0-35) U/L Alkaline Phosphatase (38-126) U/L Troponin I < 0.012 (0.000-0.034) ng/mL Serum Total Protein (6.3-8.2) g/dL Albumin (3.5-5.0) g/dL Lipase (23-300) U/L TSH 3rd Generation 6.530 H (0.47-4.68) mIU/L Urine Color (YELLOW) Urine Appearance (CLEAR) Urine pH (5-6) Ur Specific [place] (1.005-1.025) Urine Protein (Negative) Urine Ketones (NEGATIVE) Urine Blood (0-5) [place]/ul Urine Nitrite (NEGATIVE) Urine Bilirubin (NEGATIVE) Urine Urobilinogen (0-1) mg/dL Ur Leukocyte Esterase (NEGATIVE) Urine WBC (Auto) (0-5) /HPF Urine RBC (Auto) (0-2) /HPF U Epithel Cells (Auto) (FEW) /HPF Urine Bacteria (Auto) (NEGATIVE) /HPF Urine Mucus (Auto) (NEGATIVE) /HPF Urine Culture Reflexed (NO) Urine Glucose (NEGATIVE) mg/dL Influenza Type A Ag (NEGATIVE) Influenza Type B Ag (NEGATIVE) RSV (PCR) (Negative) SARS-CoV-2 (PCR) (NEGATIVE) Slides for Path Review - Radiology Impressions Radiology Exams & Impressions: Radiology Procedures Category Date Time Status ABDOMEN AND PELVIS W CONTRAST [CT] Stat Exams 10/02/21 12:01 Completed GALLBLADDER [US] Stat Exams 10/02/21 11:42 Completed - Other Procedures and Tests Respiratory Therapy 10/02/21 19:03 Oxygen NASAL CANNULA 2 lpm 10/03/21 07:00 Respiratory Therapy Assessment DAILY Assessment/Plan (1) Acute cholecystitis Current Visit: Yes Status: Acute Assessment & Plan: 50yo female with acute cholecystis, darby sign, US and CT confirmed. labs ok. -to OR for cholecystectomy. Code(s): K81.0 - ACUTE CHOLECYSTITIS
[2021-10-02] MEDS ORDERED: PHENYLEPHRINE HCL ONE (20:14)
[2021-10-02] MEDS ORDERED: Ephedrine Sulfate 50 MG/ML ONE (20:21)
[2021-10-02] MEDS ORDERED: BRIDION 200MG/2ML IV ONE (20:50)
[2021-10-03] MEDS: NEURONTIN 300 MG PO SCH ×2 (01:02→09:47)
[2021-10-03] MEDS: Sodium Chloride 0.9% 1000 ML 1,000 ML IV SCH (03:23)
[2021-10-03 05:47] LABS: Absolute Neutrophil Ct (ANC) 15.35 (1.4-6.9); Basophil (Absolute #) 0.01 (0-0.4); Eosinophil (Absolute #) 0 (0-0.5); Hematocrit 32.4 % (35-47); Hemoglobin 9.6 gm/dl (12.0-16.0); Lymphocyte (Absolute #) 0.43 (1.0-4.6); Lymphocytes % 2.6 % (24.0-44.0); Mean Cell Volume 84.6 fl (78-100); Mean Corpuscular Hemoglobin 25.1 pg (26-32); Mean Corpuscular Hgb Concent. 29.6 g/dl (32-36); Mean Platelet Volume 10.9 fl (7.5-11.0); Monocyte (Absolute #) 0.96 (0.0-1.3); Monocytes % 5.7 % (0.0-12.0); Neutrophil % 91.6 % (36.0-66.0); Platelet Count 311 K/mm3 (150-450); Red Blood Count 3.83 M/mm3 (4.1-5.4); Red Cell Distribution Width 14.7 % (11.5-14.0); White Blood Count 16.8 K/mm3 (4.0-10.5)
[2021-10-03 06:05] LABS: LIPASE 10 U/L (23-300)
[2021-10-03 06:06] LABS: ALBUMIN 3.4 g/dL (3.5-5.0); ALKALINE PHOSPHATASE 60 U/L (38-126); ANION GAP 12.1 MEQ/L (5-15); BLOOD UREA NITROGEN 10 mg/dL (7-17); CHLORIDE 105 mmol/L (98-107); Calcium 7.8 mg/dL (8.4-10.2); Carbon Dioxide 25 mmol/L (22-30); Creatinine 1 0.77 mg/dL (0.52-1.04); EST GLOMERULAR FILTRATION RATE > 60.0 ML/MIN; Glucose 132 mg/dL (74-106); Potassium 3.5 mmol/L (3.5-5.1); SGOT/AST 64 U/L (14-36); SGPT/ALT 34 U/L (0-35); SODIUM 138 mmol/L (137-145); Total Protein 6.2 g/dL (6.3-8.2)
[2021-10-03 06:07] LABS: AMYLASE < 30 U/L (30-110)
[2021-10-03 07:33] LABS: Slide Review 1 YES
[2021-10-03] MEDS: Advair Hfa 115/21 Common canister IH SCH (07:48)
[2021-10-03] MEDS: SYNTHROID 100 MCG PO SCH (09:44)
[2021-10-03] MEDS ORDERED: NON-FORMULARY ITEM (Fluticasone/Vilanterol [Breo Ellipta 100-25 Mcg Inh] 1 EACH Blst.W.Dev IH SCH (10:00)
--- NOTE | 2021-10-03 11:06 | CONS ---
CONSULT DATE: 10/02/2021 HISTORY: The patient is a 50-year-old female who apparently had some right upper quadrant epigastric pain since yesterday. She came in and had some nausea and emesis. She had work up. Supposedly her bilirubin was okay. She had a CT and ultrasound show thick walled gallbladder, two moderately large stones in the neck of the gallbladder with inflammatory changes suspicious for acute cholecystitis or cholelithiasis. PAST MEDICAL HISTORY: Obesity. Hypertension. Hypothyroidism. PAST SURGICAL HISTORY: She had section in the past. MEDICATIONS: Gabapentin, levothyroxine. She takes a blood pressure pill. ALLERGIES: PENICILLIN. FAMILY HISTORY: Negative in regards to this problem. SOCIAL HISTORY: She denies alcohol abuse. REVIEW OF SYSTEMS: Fourteen systems reviewed per admission assessment as noted above. PHYSICAL EXAMINATION: GENERAL: No acute distress. HEENT: She did not seem to have any gross sclera nonicterus. NECK: No JVD. CHEST: Equal excursion, nonlabored breathing. CVS: Regular rhythm and pulse. ABDOMEN: Some tenderness in the right upper quadrant. EXTREMITIES: No cyanosis. NEURO: Alert, oriented, moving extremities symmetrically. PSYCH: Appropriate mood and affect. IMPRESSION: Acute epigastric right upper quadrant pain. Ultrasound and CT suggestive of acute cholecystitis or cholelithiasis. I feel ultimately the patient would benefit from cholecystectomy laparoscopic possible open. Risks and benefits explained in detail including but not limited to bleeding or infection, risk of trocar injury or hernia, risk of bowel, bladder or blood vessel injury, risk of bile leak, bile duct injury, retained stone or sludge possibly requiring further procedure either open or ERCP, possible need for open procedure, perioperative risk of aches, pains, bloating, constipation and/or loose stools possibly even chronic in nature, possibility of no improvement in her symptoms and may require other work up and/or testing. She understands. Unfortunately there is not anesthesia here. I have cases scheduled in [place]. She would benefit from cholecystectomy but I am seeing the patient for Dr. Eric Starr who is optical effects line up person for our group today. If he has time to do later this evening may get done later this evening otherwise may get it done tomorrow. She is going to be admitted by her medical physician. The patient agrees to the plan.
[2021-10-03 12:58] VITALS: BP 98/55; PULSE 96
[2021-10-03] MEDS: NORCO 5/325 MG PO PRN ×2 (13:02→17:14)
--- NOTE | 2021-10-03 13:39 | OP ---
SURGERY DATE/TIME: 10/02/20212008 PREOPERATIVE DIAGNOSIS: Acute cholecystitis. POSTOPERATIVE DIAGNOSES: Acute cholecystitis. PROCEDURE: Laparoscopic cholecystectomy. SURGEON: Eric Starr M.D. ANESTHESIA: General. ESTIMATED BLOOD LOSS: 100. CONDITION: Patient condition stable. COMPLICATIONS: None. SPECIMEN: Gallbladder. HISTORY: The patient is a 50-year-old female with one day of right upper quadrant abdominal pain. CT scan and ultrasound showing acute cholecystitis without any obstruction. Hart sign on exam. Discussed with the patient the risk of infection, bleeding, injury to nearby structures, hernia and she elected to proceed with surgery. FINDINGS: Acutely inflamed gallbladder with hydrops, edema. DESCRIPTION OF PROCEDURE: The patient was brought to the operating room. General anesthesia induced. Routinely position, prepped and draped. Time out performed. She received her preoperative antibiotic. Veress needle inserted in left upper quadrant. Opening pressure was 5. Pneumoperitoneum established. A 5 mm Optiview trocar placed in left upper quadrant. There are omental adhesions to the midline and lower abdomen but the right upper quadrant is open. Two additional 5 mm trocars placed right upper quadrant and an 11 mm right paramedian trocar is placed. The patient is routinely positioned. Omental adhesions to gallbladder are taken down. Gallbladder is then grasped and retracted. It is very edematous, friable. It did rupture with grasping. There was hydrops of the gallbladder. This is suctioned. The cystic duct and cystic artery are dissected out with a combination of mostly blunt dissection, hook cautery and [place] and a critical view was clearly obtained. The cystic duct was taken three down with 5 mm metal clip production engineer. Cystic artery taken two down and 5 mm Hem-O-Tonya clip production engineer both were divided. The gallbladder was taken off the liver bed. There was one small structure mostly at the gallbladder that might have been a duct of [place]ch[place] which is clipped. The gallbladder is taken off and placed in specimen bag and removed through the 11 trocar site. The 11 trocar is reinserted, right upper quadrant re-inspected, irrigated and suctioned until clear. There is good hemostasis. Clips are in good position. The 11 trocar site is then closed with 0 Vicryl interrupted suture passer. Right upper quadrant ports removed under direct visualization. Left upper quadrant port used for desufflation and then removed. Skin closed with 4-0 Vicryl suture. Marcaine had been injected at the port sites. All counts were correct. The patient tolerated the procedure well. Plan is for extubation.
[2021-10-03 14:07] VITALS: O2SAT 94
== END 2021-10-03 18:30 | disposition home or self-care (01) ==
LOC: ED 11:03 → MED SURG 15:20
PROVIDERS: ADMIT Family Medicine; ATTEND Family Medicine
DX: K81.0 Acute cholecystitis (principal); I10 Essential (primary) hypertension; F17.200 Nicotine dependence, unspecified, uncomplicated; E03.9 Hypothyroidism, unspecified; D64.9 Anemia, unspecified; J44.9 Chronic obstructive pulmonary disease, unspecified; Z79.899 Other long term (current) drug therapy; Z20.828 Contact with and (suspected) exposure to other viral communicable diseases
CPT/HCPCS: 0241U; 36000; 36415; 47562; 64488; 74177; 76705; 76937; 80053; 81001; 82150; 83690; 83735; 84443; 84484; 85025; 86376; 94640; 94760; 94762; 96360; 96374; 96375; 99285; G0378; 76942; 99140; J0330; J1100; J1170; J1956; J2270; J2370; J2405; J2704; J3010; A9270-GY

== ENCOUNTER 2022-07-04 18:17 | Observation (INO) | payer BC ==
--- NOTE | 2022-07-04 18:57 | ERPHSYRPT ---
- History of Present Illness Source: patient Exam Limitations: no limitations Patient Subjective Stated Complaint: pt here for abnormal labs, has low hgb , she states she is weak and got light headed in shower , no blood in stools Triage Nursing Assessment: pt alert, resp easy, face mask in place, skin warm dry and pale, no edema noted Physician History: 51 yo wf went to clinic today for lethargy x several months and found to have a Hb of 6.6, so she was subsequently sent to the ER. Pt denies vaginal bleeding, melena, and hematochezia. She states that Dr. Duron performed a colonoscopy earlier this year which was negative. Pt has been somewhat lethargic over the last year and states that she had a near syncopal episode in the shower earlier today. She has chronic dyspnea due to smoking/COPD but denies chest pain, abdominal pain, focal weakness, and fever. Timing/Duration: today (Today/lethargy x 1year) Severity: moderate Modifying Factors: Improves With: nothing Associated Symptoms: denies symptoms, weakness Allergies/Adverse Reactions: Penicillins Allergy (Verified 07/04/22 18:33) unknown Home Medications: Fluticasone/Vilanterol [Breo Ellipta 100-25 Mcg INH] 1 ea IH DAILY 04/02/18 [History] Gabapentin [Neurontin] 300 mg PO BID 04/02/18 [History] Levothyroxine Sodium 50 Mcg [Synthroid 50 Mcg] 100 mcg PO DAILY 04/02/18 [History] Albuterol Sulfate [Proair Hfa] 8.5 gm IH Q4HPRN PRN 09/27/21 [History] Venlafaxine HCl [Venlafaxine HCl ER] 75 mg PO DAILY 07/04/22 [History] Hx Tetanus, Diphtheria Vaccination/Date Given: Yes (UNKOWN) Hx Influenza Vaccination/Date Given: No (REFUSE) Hx Pneumococcal Vaccination/Date Given: No (REFUSE) Immunizations Up to Date: No Travel Risk - International Travel Have you traveled outside of the country in past 3 weeks: No - Coronavirus Screening Are you exhibiting any of the following symptoms?: No Close contact with a COVID-19 positive Pt in past 14-21 Days: No - Vaccine Status Have you recieved a Covid-19 vaccination: Yes Applied Researcher: Moderna - Vaccination Dates Date of 2cond Vaccination (if applicable): February 2021 - Review of Systems Constitutional: No Symptoms Eyes: No Symptoms Ears, Nose, & Throat: No Symptoms Respiratory: No Symptoms Cardiac: No Symptoms Abdominal/Gastrointestinal: No Symptoms Genitourinary Symptoms: No Symptoms Musculoskeletal: No Symptoms Skin: No Symptoms Neurological: No Symptoms Psychological: No Symptoms Endocrine: No Symptoms Hematologic/Lymphatic: No Symptoms Immunological/Allergic: Pollen Allergy - Past Medical History Pertinent Past Medical History: Yes Neurological History: No Pertinent History ENT History: No Pertinent History Cardiac History: No Pertinent History Respiratory History: Asthma, COPD, Pneumonia Endocrine Medical History: Hypothyroidism Musculoskeletal History: No Pertinent History GI Medical History: No Pertinent History History: No Pertinent History Psycho-Social History: Anxiety Female Reproductive Disorders: Other Other Medical History: cervical cell abnormality. left knee bone spur/arthritis. anemia- iron def - Past Surgical History Past Surgical History: Yes Neuro Surgical History: No Pertinent History Cardiac: No Pertinent History Respiratory: No Pertinent History Gastrointestinal: Cholecystectomy, Exploratory Laparoscopy Genitourinary: No Pertinent History Musculoskeletal: Orthopedic Surgery Female Surgical History: Section, Other Other Surgical History: LEEP, bone spur,. ovarian cystectomy - Social History Smoking Status: Current every day smoker How long have you smoked: 30 years Exposure to second hand smoke: No Drug Use: none Patient Lives Alone: No - Nursing Vital Signs Nursing Vital Signs: Initial Vital Signs Temperature 98.1 F 07/04/22 18:29 Pulse Rate 80 07/04/22 18:29 Respiratory Rate 18 07/04/22 18:29 Blood Pressure 158/81 07/04/22 18:29 O2 Sat by Pulse Oximetry 99 07/04/22 18:29 Pain Scale Pain Intensity 0 Hypertensive - Physical Exam General Appearance: no apparent distress Eye Exam: PERRL/EOMI, eyes nml inspection Ears, Nose, Throat Exam: normal ENT inspection, TMs normal, pharynx normal, moist mucous membranes Neck Exam: normal inspection, non-tender, supple, full range of motion, No meningismus, No mass, No Brudzinski, No Kernig's Respiratory Exam: normal breath sounds, lungs clear, airway intact Cardiovascular Exam: regular rate/rhythm, normal heart sounds, normal peripheral pulses, murmur, capillary refill <2 sec Gastrointestinal/Abdomen Exam: soft, normal bowel sounds, No tenderness Back Exam: normal inspection, normal range of motion, No CVA tenderness, No vertebral tenderness Extremity Exam: normal inspection, normal range of motion Neurologic Exam: alert, oriented x 3, cooperative, child welfare specialist II-XII nml as tested, normal mood/affect Skin Exam: pale Lymphatic Exam: No adenopathy SpO2 Interpretation: normal SpO2: 99 O2 Delivery: Room Air - Course Nursing assessment & vital signs reviewed: Yes EKG Interpreted by Me: RATE (NSR/Rate 72/Normal QT-QTc/No acute ST segment changes) Ordered Tests: Active Orders 24 hr Category Date Time Status Bedrest with BRP/BSC ROUTINE Activity 07/04/22 19:02 Active Code Status Order ROUTINE Care 07/04/22 19:01 Active EKG-ER Only STAT Care 07/04/22 18:58 Active IV Care Q6H Care 07/04/22 19:01 Active IV Insertion STAT Care 07/04/22 18:[address] in Observation ROUTINE Care 07/04/22 19:01 Active Vital Signs Q4H Care 07/04/22 19:01 Active NPO Diet 07/04/22 19:02 Active CBC W DIFF AM.LAB Lab 07/05/22 04:00 Ordered CMP AM.LAB Lab 07/05/22 04:00 Ordered Occult Blood Stool [FECAL OCCULT BLOOD - SCREENING] Lab 07/04/22 Ordered Routine TROPONIN Q4H Lab 07/04/22 18:55 Completed TROPONIN Q4H Lab 07/04/22 23:00 Ordered TROPONIN Q4H Lab 07/05/22 03:00 Ordered Transfer Order Routine Transfer 07/04/22 Ordered Medication Summary Generic Name Dose Route Start Last Admin Trade Name Freq PRN Reason Stop Dose Admin Furosemide 20 mg 07/04/22 19:15 Furosemide 20 Mg/Vial IV 08/03/22 19:14 BETWEEN UNITS [facility] Lab/Rad Data: Laboratory Results 07/04/22 07/04/22 Range/Units 19:04 18:55 Troponin I < 0.012 (0.000-0.034) ng/mL Influenza Type A Ag NEGATIVE (NEGATIVE) Influenza Type B Ag NEGATIVE (NEGATIVE) RSV (PCR) NEGATIVE (Negative) SARS-CoV-2 (PCR) NEGATIVE (NEGATIVE) - Progress Discussed with : Hugo (Obs per Dr. Johnston/Transfuse 2units PRBC's) Counseled pt/family regarding: diagnosis, need for follow-up - Departure Departure Disposition: Observation Clinical Impression: Microcytic anemia Condition: Stable Critical Care Time: No
[2022-07-04] MEDS ORDERED: Lasix 20 MG/2 ML IV SCH (19:15)
[2022-07-04 19:43] LABS: INFLUENZA A NEGATIVE (NEGATIVE); INFLUENZA B NEGATIVE (NEGATIVE); RESPIRATORY SYNCTIAL VIRUS NEGATIVE (Negative); SARS-CoV-2 Xpert Express NEGATIVE (NEGATIVE)
[2022-07-04] MEDS ORDERED: NICODERM CQ 14 MG TOP SCH (21:45)
[2022-07-04] MEDS ORDERED: TYLENOL 325 MG PO PRN (21:46)
[2022-07-04] MEDS: NEURONTIN PO SCH (22:20)
[2022-07-05 01:38] LABS: ABO TYPING O; RH TYPING POSITIVE
[2022-07-05 01:51] LABS: CROSS MATCH (PRBC) COMPATIBLE (COMPATIBLE)
[2022-07-05] MEDS ORDERED: Sodium Chloride 0.9% 1000 ML 1,000 ML ONE ×2 (01:56→04:20)
[2022-07-05] MEDS ORDERED: Sodium Chloride 0.9% 1000 ML 1,000 ML IV SCH (07:15)
[2022-07-05 07:26] VITALS: O2SAT 96
[2022-07-05 08:35] LABS: Basophil (Absolute #) 0.07 x10^3/uL (0-0.4); Eosinophil % 6.7 % (0.00-5.0); Hematocrit 32.9 % (35-47); Hemoglobin 8.8 g/dL (12.0-16.0); Lymphocyte (Absolute #) 1.11 x10^3/uL (1.0-4.6); Lymphocytes % 24.7 % (24.0-44.0); Mean Cell Volume 67.8 fL (78-100); Mean Corpuscular Hemoglobin 18.1 pg (26-32); Mean Corpuscular Hgb Concent. 26.7 g/dL (32-36); Mean Platelet Volume 9.4 fL (7.5-11.0); Monocyte (Absolute #) 0.51 x10^3/uL (0.0-1.3); Monocytes % 11.3 % (0.0-12.0); Neutrophil % 55.5 % (36.0-66.0); Platelet Count 407 x10^3/uL (150-450); Red Blood Count 4.85 x10^6/uL (4.1-5.4); Red Cell Distribution Width 23.5 % (11.5-14.0); White Blood Count 4.5 x10^3/uL (4.0-10.5)
[2022-07-05 08:54] LABS: ALBUMIN 4.3 g/dL (3.5-5.0); ALKALINE PHOSPHATASE 69 U/L (38-126); ANION GAP 10.2 MEQ/L (5-15); BLOOD UREA NITROGEN 11 mg/dL (7-17); CHLORIDE 105 mmol/L (98-107); Calcium 8.7 mg/dL (8.4-10.2); Carbon Dioxide 28 mmol/L (22-30); Creatinine 1 0.62 mg/dL (0.52-1.04); EST GLOMERULAR FILTRATION RATE > 60.0 ML/MIN; Glucose 104 mg/dL (74-106); Potassium 3.8 mmol/L (3.5-5.1); SGOT/AST 19 U/L (14-36); SGPT/ALT 13 U/L (0-35); SODIUM 140 mmol/L (137-145); Total Protein 7.3 g/dL (6.3-8.2)
[2022-07-05] MEDS ORDERED: VENTOLIN COMMON CANISTER IH PRN (08:57)
--- NOTE | 2022-07-05 09:03 | PCM.SSS ---
History of Present Illness - Chief Complaint Chief Complaint: Anemia History of Present Illness: is a 51 year old female pt with COPD, asthma, TOB abuse, hypothyroidism, and depression who was admitted through ER with anemia and pre- syncope. She had nearly passed out in the shower, came to QC and found to have hgb of 6.6 so was admitted for blood transfusion. Received 2 units PRBC. She's not been feeling good for about 1 mo. Had sinus sx 1 mo ago. Has been tolerating po. No melena/hematochezia. Had a colonoscopy with Dr. Duron earlier this year (no EGD). Takes ibuprofen daily, #2, althought started taking some at night as well the past 2-3 nights as she's been out of gabapentin. She has not been taking it with food. - Review of Systems Constitutional: Fatigue Abdominal/Gastrointestinal: Nausea (5d ago) Skin: Rash (itchy bumps that bleed when she scratches them on R breast, back, and ) Neurological: Dizziness All Other Systems: Reviewed and Negative Medications & Allergies Home Medications: Home Medication List Fluticasone/Vilanterol [Breo Ellipta 100-25 Mcg INH] 1 ea IH DAILY 04/02/18 [History Confirmed 07/04/22] Levothyroxine Sodium 50 Mcg [Synthroid 50 Mcg] 100 mcg PO DAILY 04/02/18 [History Confirmed 07/04/22] Albuterol Sulfate [Proair Hfa] 8.5 gm IH Q4HPRN PRN 09/27/21 [History Confirmed 07/04/22] Venlafaxine HCl [Venlafaxine HCl ER] 75 mg PO DAILY 07/04/22 [History Confirmed 07/04/22] Gabapentin [Neurontin] 300 mg PO BID 30 Days #60 cap 07/05/22 [Rx] Nicotine 14 mg [Nicoderm Cq 14 mg] 14 mg TOP Q24H #30 patch 07/05/22 [Rx] PANTOPRAZOLE 40 mg Tablet [Protonix 40MG Tablet] 40 mg PO QPM 30 Days #30 tab 07/05/22 [Rx] Sucralfate 1 gm [Carafate 1 GM] 1 g PO QID 7 Days #28 tablet 07/05/22 [Rx] Allergies/Adverse Reactions: Allergies Allergy/AdvReac Type Severity Reaction Status Date / Time Penicillins Allergy unknown Verified 07/04/22 18:33 - Past Medical History Past Medical History: Yes Neurological History: No Pertinent History ENT History: No Pertinent History Cardiac History: No Pertinent History Respiratory History: Asthma, COPD, Pneumonia Endocrine Medical History: Hypothyroidism Musculoskelatal History: No Pertinent History GI Medical History: No Pertinent History History: No Pertinent History Pyscho-Social History: Anxiety Reproductive Disorders: Other Comment: cervical cell abnormality. left knee bone spur/arthritis. anemia- iron def - Past Surgical History Past Surgical History: Yes Neuro Surgical History: No Pertinent History Cardiac History: No Pertinent History Respiratory Surgery: No Pertinent History GI Surgical History: Cholecystectomy, Exploratory Laparoscopy Genitourinary Surgical Hx: No Pertinent History Musculskeletal Surgical Hx: Orthopedic Surgery Female Surgical History: Section, Other Other Surgical History: LEEP, bone spur,. ovarian cystectomy - Social History Smoking Status: Current every day smoker How long have you smoked: 30 years Exposure to second hand smoke: No Alcohol: Rarely Drug Use: none - Physical Exam Vital Signs: Vital Signs - 24 hr Temp Pulse Resp BP Pulse Ox 07/05/22 07:24 96 07/05/22 05:50 97 07/05/22 05:00 97.7 F 78 16 118/72 90 L 07/05/22 03:05 97.5 F 84 16 103/57 94 L 07/04/22 23:43 98.1 F 84 16 144/77 99 07/04/22 21:15 98.1 F 84 16 144/77 99 07/04/22 21:04 99 07/04/22 19:32 83 18 145/87 95 07/04/22 18:29 98.1 F 80 18 158/81 99 Results - Labs Lab/Micro Results: Lab Results-Last 24 Hours 07/04/22 07/04/22 07/04/22 Range/Units 18:55 19:04 19:04 Sodium (137-145) mmol/L Potassium (3.5-5.1) mmol/L Chloride (98-107) mmol/L Carbon Dioxide (22-30) mmol/L Anion Gap (5-15) MEQ/L BUN (7-17) mg/dL Creatinine (0.52-1.04) mg/dL Estimated GFR ML/MIN Glucose (74-106) mg/dL Calcium (8.4-10.2) mg/dL Total Bilirubin (0.2-1.3) mg/dL AST (14-36) U/L ALT (0-35) U/L Alkaline Phosphatase (38-126) U/L Troponin I < 0.012 (0.000-0.034) ng/mL Serum Total Protein (6.3-8.2) g/dL Albumin (3.5-5.0) g/dL Influenza Type A Ag NEGATIVE (NEGATIVE) Influenza Type B Ag NEGATIVE (NEGATIVE) RSV (PCR) NEGATIVE (Negative) SARS-CoV-2 (PCR) NEGATIVE (NEGATIVE) ABO Group Rh Factor Antibody Screen (NEGATIVE) Crossmatch COMPATIBLE (COMPATIBLE) 07/04/22 07/04/22 07/04/22 Range/Units 19:04 19:04 23:31 Sodium (137-145) mmol/L Potassium (3.5-5.1) mmol/L Chloride (98-107) mmol/L Carbon Dioxide (22-30) mmol/L Anion Gap (5-15) MEQ/L BUN (7-17) mg/dL Creatinine (0.52-1.04) mg/dL Estimated GFR ML/MIN Glucose (74-106) mg/dL Calcium (8.4-10.2) mg/dL Total Bilirubin (0.2-1.3) mg/dL AST (14-36) U/L ALT (0-35) U/L Alkaline Phosphatase (38-126) U/L Troponin I < 0.012 (0.000-0.034) ng/mL Serum Total Protein (6.3-8.2) g/dL Albumin (3.5-5.0) g/dL Influenza Type A Ag (NEGATIVE) Influenza Type B Ag (NEGATIVE) RSV (PCR) (Negative) SARS-CoV-2 (PCR) (NEGATIVE) ABO Group O Rh Factor POSITIVE Antibody Screen See Ref Lab Report (NEGATIVE) Crossmatch COMPATIBLE (COMPATIBLE) 07/05/22 Range/Units 08:30 Sodium 140 D (137-145) mmol/L Potassium 3.8 (3.5-5.1) mmol/L Chloride 105 (98-107) mmol/L Carbon Dioxide 28 (22-30) mmol/L Anion Gap 10.2 (5-15) MEQ/L BUN 11 (7-17) mg/dL Creatinine 0.62 (0.52-1.04) mg/dL Estimated GFR > 60.0 ML/MIN Glucose 104 (74-106) mg/dL Calcium 8.7 (8.4-10.2) mg/dL Total Bilirubin 0.50 (0.2-1.3) mg/dL AST 19 (14-36) U/L ALT 13 (0-35) U/L Alkaline Phosphatase 69 (38-126) U/L Troponin I (0.000-0.034) ng/mL Serum Total Protein 7.3 (6.3-8.2) g/dL Albumin 4.3 (3.5-5.0) g/dL Influenza Type A Ag (NEGATIVE) Influenza Type B Ag (NEGATIVE) RSV (PCR) (Negative) SARS-CoV-2 (PCR) (NEGATIVE) ABO Group Rh Factor Antibody Screen (NEGATIVE) Crossmatch (COMPATIBLE) - Other Procedures and Tests Respiratory Therapy 07/05/22 05:49 Oxygen Nasal Cannula 3 lpm Assessment/Plan (1) Microcytic anemia Current Visit: Yes Status: Acute Assessment & Plan: Has received 2 units PRBC. Await f/u hgb. If ok, would consider d/c to home and do EGD outpatient. Code(s): D50.9 - IRON DEFICIENCY ANEMIA, UNSPECIFIED Hospital Summary - Hospital Course Hospital Course: Pt is 51 yo female who came in with hgb 6.6 and has received 2 units PRBC. If her hgb is stable, will be discharged to home on NO MORE NSAIDs and PPI and carafate to f/u with outpatient EGD. - Vitals & Intake/Output Vital Signs: Vital Signs Temperature 97.7 F 07/05/22 05:00 Pulse Rate 78 07/05/22 05:00 Respiratory Rate 16 07/05/22 05:00 Blood Pressure 118/72 07/05/22 05:00 O2 Sat by Pulse Oximetry 96 07/05/22 07:24 Intake & Output: Intake & Output 07/02/22 07/03/22 07/04/22 07/05/22 11:59 11:59 11:59 11:59 Intake Total 927 Output Total 1250 Balance -323 Weight 68 kg - Lab Result Diagrams: 07/05/22 08:30 Lab Results-Last 24 Hrs: Lab Results-Last 24 Hours 07/04/22 07/04/22 07/04/22 Range/Units 18:55 19:04 19:04 Sodium (137-145) mmol/L Potassium (3.5-5.1) mmol/L Chloride (98-107) mmol/L Carbon Dioxide (22-30) mmol/L Anion Gap (5-15) MEQ/L BUN (7-17) mg/dL Creatinine (0.52-1.04) mg/dL Estimated GFR ML/MIN Glucose (74-106) mg/dL Calcium (8.4-10.2) mg/dL Total Bilirubin (0.2-1.3) mg/dL AST (14-36) U/L ALT (0-35) U/L Alkaline Phosphatase (38-126) U/L Troponin I < 0.012 (0.000-0.034) ng/mL Serum Total Protein (6.3-8.2) g/dL Albumin (3.5-5.0) g/dL Influenza Type A Ag NEGATIVE (NEGATIVE) Influenza Type B Ag NEGATIVE (NEGATIVE) RSV (PCR) NEGATIVE (Negative) SARS-CoV-2 (PCR) NEGATIVE (NEGATIVE) ABO Group Rh Factor Antibody Screen (NEGATIVE) Crossmatch COMPATIBLE (COMPATIBLE) 07/04/22 07/04/22 07/04/22 Range/Units 19:04 19:04 23:31 Sodium (137-145) mmol/L Potassium (3.5-5.1) mmol/L Chloride (98-107) mmol/L Carbon Dioxide (22-30) mmol/L Anion Gap (5-15) MEQ/L BUN (7-17) mg/dL Creatinine (0.52-1.04) mg/dL Estimated GFR ML/MIN Glucose (74-106) mg/dL Calcium (8.4-10.2) mg/dL Total Bilirubin (0.2-1.3) mg/dL AST (14-36) U/L ALT (0-35) U/L Alkaline Phosphatase (38-126) U/L Troponin I < 0.012 (0.000-0.034) ng/mL Serum Total Protein (6.3-8.2) g/dL Albumin (3.5-5.0) g/dL Influenza Type A Ag (NEGATIVE) Influenza Type B Ag (NEGATIVE) RSV (PCR) (Negative) SARS-CoV-2 (PCR) (NEGATIVE) ABO Group O Rh Factor POSITIVE Antibody Screen See Ref Lab Report (NEGATIVE) Crossmatch COMPATIBLE (COMPATIBLE) 07/05/22 Range/Units 08:30 Sodium 140 D (137-145) mmol/L Potassium 3.8 (3.5-5.1) mmol/L Chloride 105 (98-107) mmol/L Carbon Dioxide 28 (22-30) mmol/L Anion Gap 10.2 (5-15) MEQ/L BUN 11 (7-17) mg/dL Creatinine 0.62 (0.52-1.04) mg/dL Estimated GFR > 60.0 ML/MIN Glucose 104 (74-106) mg/dL Calcium 8.7 (8.4-10.2) mg/dL Total Bilirubin 0.50 (0.2-1.3) mg/dL AST 19 (14-36) U/L ALT 13 (0-35) U/L Alkaline Phosphatase 69 (38-126) U/L Troponin I (0.000-0.034) ng/mL Serum Total Protein 7.3 (6.3-8.2) g/dL Albumin 4.3 (3.5-5.0) g/dL Influenza Type A Ag (NEGATIVE) Influenza Type B Ag (NEGATIVE) RSV (PCR) (Negative) SARS-CoV-2 (PCR) (NEGATIVE) ABO Group Rh Factor Antibody Screen (NEGATIVE) Crossmatch (COMPATIBLE) - Procedures and Test Procedures and Tests throughout Hospitalization: Therapy Orders & Screens 07/05/22 05:49 Oxygen Nasal Cannula 3 lpm Comment: Diagnosis: Anemia - Discharge Disposition: Home, Self-Care Condition: Good Prescriptions: New Sucralfate 1 gm [Carafate 1 GM] 1 g PO QID 7 Days #28 tablet Nicotine 14 mg [Nicoderm Cq 14 mg] 14 mg TOP Q24H #30 patch PANTOPRAZOLE 40 mg Tablet [Protonix 40MG Tablet] 40 mg PO QPM 30 Days #30 tab Continue Fluticasone/Vilanterol [Breo Ellipta 100-25 Mcg INH] 1 ea IH DAILY Levothyroxine Sodium 50 Mcg [Synthroid 50 Mcg] 100 mcg PO DAILY Albuterol Sulfate [Proair Hfa] 8.5 gm IH Q4HPRN PRN PRN Reason: Shortness Of Breath/Wheezing Venlafaxine HCl [Venlafaxine HCl ER] 75 mg PO DAILY Gabapentin [Neurontin] 300 mg PO BID 30 Days #60 cap Follow up with: CAMILLE MAIER [Primary Care Provider] -
[2022-07-05] MEDS ORDERED: MEDICATION INTERVENTION MC SCH (09:15)
[2022-07-05] MEDS: NEURONTIN PO SCH (09:22)
[2022-07-05 09:30] VITALS: BP 128/76; PULSE 86
[2022-07-05] MEDS ORDERED: NON-FORMULARY ITEM (Venlafaxine Hcl [Venlafaxine Hcl Er] 75 MG Tab.Er.24) PO SCH (10:00)
[2022-07-05] MEDS ORDERED: SYNTHROID 100 MCG PO SCH (10:00)
[2022-07-05] MEDS ORDERED: Effexor XR 75 MG PO SCH (10:00)
[2022-07-05] MEDS ORDERED: NON-FORMULARY ITEM (Fluticasone/Vilanterol [Breo Ellipta 100-25 Mcg Inh] 1 EACH Blst.W.Dev IH SCH (10:00)
[2022-07-05] MEDS ORDERED: Sodium Chloride 0.9% 1000 ML 1,000 ML IV ONE (10:34)
[2022-07-05 10:36] LABS: Slide Review 1 YES
== END 2022-07-05 10:35 | disposition home or self-care (01) ==
LOC: ED 18:17 → MED SURG 20:40
PROVIDERS: ADMIT Family Medicine; ATTEND Family Medicine
DX: D50.9 Iron deficiency anemia, unspecified (principal); J44.9 Chronic obstructive pulmonary disease, unspecified; E03.9 Hypothyroidism, unspecified; Z72.0 Tobacco use; Z79.899 Other long term (current) drug therapy; Z20.828 Contact with and (suspected) exposure to other viral communicable diseases
CPT/HCPCS: 0241U; 36000; 36415; 36430; 80053; 84484; 85025; 86850; 86900; 86901; 86922; 93005; 94760; 99284; G0378; P9016; J1940; A9270-GY

== ENCOUNTER 2022-10-03 05:59 | Day surgery (SDC) | payer BC ==
[2022-10-03] MEDS ORDERED: Lactated Ringers 1,000 ML IV SCH (07:00)
[2022-10-03] MEDS ORDERED: Versed 2 MG/2 ML Injection ONE (08:15)
[2022-10-03] MEDS ORDERED: Xylocaine-Mpf 2% 5 Ml Vial ONE (08:15)
[2022-10-03] MEDS ORDERED: DIPRIVAN 200 MG/20 ML IV ONE (08:15)
[2022-10-03 09:24] VITALS: BP 125/77; PULSE 79; O2SAT 93
--- NOTE | 2022-10-03 11:22 | OP ---
SURGERY DATE/TIME: 10/03/202218 PREOPERATIVE DIAGNOSIS: Anemia. POSTOPERATIVE DIAGNOSIS: Severe gastritis. PROCEDURE: EGD. SURGEON: Amos Johnston M.D. ANESTHESIA: MAC by Surya Kelley CRNA. ESTIMATED BLOOD LOSS: Minimal. SPECIMENS: Cold forceps biopsies from the gastric antrum. DESCRIPTION OF PROCEDURE: After informed written consent was obtained, the patient was taken to the endoscopy suite. She was placed in left lateral decubitus position and a bite block inserted. Anesthesia was titrated to the desired level of consciousness and the endoscope was inserted into the posterior oropharynx. Under direct visualization the esophagus was easily traversed. Esophageal mucosa had a normal appearance free of any lesions or defects. The gastroesophageal junction likewise had a normal appearance upon entering into the gastric cavity. There were normal rugated gastric mucosa with moderate to severe gastritis changes in the gastric antrum. There is no active bleeding but evidence of previous bleeding present. The pylorus was traversed and the first and second portions of the duodenum appeared within normal limits. There were no mucosal abnormalities. Multiple cold forceps biopsies were taken from the gastric antrum with an area of severe gastritis and sent for pathology. There were no specific area that needed cauterized or further intervention. No other abnormalities were appreciable. The scope is removed. The patient was transferred to the recovery room in good condition. I have ordered her to continue her 40 mg Protonix daily and avoid all NSAID's and aspirin products at this time and follow up in a week for pathology results.
== END 2022-10-03 09:35 | disposition home or self-care (01) ==
LOC: SDC 05:59
PROVIDERS: ATTEND Family Medicine
DX: K29.70 Gastritis, unspecified, without bleeding (principal); D64.9 Anemia, unspecified
CPT/HCPCS: J2250; J2704

== ENCOUNTER 2023-03-18 14:04 | Emergency (ER) | payer BC ==
--- NOTE | 2023-03-18 14:06 | ERPHSYRPT ---
- History of Present Illness Time Seen by Provider: 03/18/23 14:06 Source: patient Exam Limitations: no limitations Physician History: This is a 52-year-old white female chronic smoker who quit approximately 2 to 3 weeks ago smoking a pack a day for many years and presents with worsening shortness of breath over the last week. Patient was sent by her primary care provider to obtain a chest x-ray on 03/11/2023. The chest x-ray was interpreted by the radiologist and I reviewed the report and the impression on this study. Patient denies chest pain. She has had an associated cough intermittently over the last week. Patient was seen at the urgent care but because she is having progressively worsening symptoms and a negative chest x-ray, patient was sent to our emergency department. Patient has a history of hypothyroidism, COPD, asthma, anxiety and gastroesophageal reflux disease. She has not had a fever Timing/Duration: week(s) (1) Severity of Dyspnea-Max: mild Severity of Dyspnea-Current: mild Possible Cause: occasional episodes Modifying Factors: Improves With: activity, coughing, oxygen (Patient was placed on 2 L oxygen here in the emergency department she stated her symptoms were improved.) Associated Symptoms: cough, No chest pain/discomfort Allergies/Adverse Reactions: Penicillins Allergy (Verified 10/03/22 06:10) unknown Home Medications: Fluticasone/Vilanterol [Breo Ellipta 100-25 Mcg INH] 1 ea IH DAILY 04/02/18 [History] Albuterol Sulfate [Proair Hfa] 8.5 gm IH Q4HPRN PRN 09/27/21 [History] Venlafaxine HCl [Venlafaxine HCl ER] 75 mg PO DAILY 07/04/22 [History] Levothyroxine Sodium [Unithroid] 1 tablet PO DAILY 03/18/23 [History] Hx Tetanus, Diphtheria Vaccination/Date Given: Yes (UNKOWN) Hx Influenza Vaccination/Date Given: No (REFUSE) Hx Pneumococcal Vaccination/Date Given: No (REFUSE) Travel Risk - International Travel Have you traveled outside of the country in past 3 weeks: No - Coronavirus Screening Are you exhibiting any of the following symptoms?: Yes Symptoms: Cough: New Onset, Shortness of Breath Close contact with a COVID-19 positive Pt in past 14-21 Days: No - Vaccine Status Have you recieved a Covid-19 vaccination: Yes Adjunct Professor Of Law: Moderna - Vaccination Dates Date of 2cond Vaccination (if applicable): February 2021 - Review of Systems Constitutional: No Symptoms Eyes: No Symptoms Ears, Nose, & Throat: No Symptoms Respiratory: Cough, Dyspnea, Wheezing Cardiac: No Symptoms Abdominal/Gastrointestinal: No Symptoms Genitourinary Symptoms: No Symptoms Musculoskeletal: No Symptoms Skin: No Symptoms Neurological: No Symptoms Psychological: No Symptoms Endocrine: No Symptoms Hematologic/Lymphatic: No Symptoms Immunological/Allergic: No Symptoms All Other Systems: Reviewed and Negative - Past Medical History Pertinent Past Medical History: Yes Neurological History: No Pertinent History ENT History: No Pertinent History Cardiac History: No Pertinent History Respiratory History: Asthma, COPD, Pneumonia Endocrine Medical History: Hypothyroidism Musculoskeletal History: No Pertinent History GI Medical History: No Pertinent History History: No Pertinent History Psycho-Social History: Anxiety Female Reproductive Disorders: Other Other Medical History: cervical cell abnormality. left knee bone spur/arthritis. anemia- iron def - Past Surgical History Past Surgical History: Yes Neuro Surgical History: No Pertinent History Cardiac: No Pertinent History Respiratory: No Pertinent History Gastrointestinal: Cholecystectomy, Exploratory Laparoscopy Genitourinary: No Pertinent History Musculoskeletal: Orthopedic Surgery Female Surgical History: Section, Other Other Surgical History: LEEP, bone spur,. ovarian cystectomy - Social History Smoking Status: Current every day smoker How long have you smoked: 30 yrs Exposure to second hand smoke: No Drug Use: none Patient Lives Alone: No - Nursing Vital Signs Nursing Vital Signs: Initial Vital Signs Temperature 97.2 F 03/18/23 14:05 Pulse Rate 84 03/18/23 14:05 Respiratory Rate 24 03/18/23 14:05 Blood Pressure 124/86 03/18/23 14:05 O2 Sat by Pulse Oximetry 90 L 03/18/23 14:05 Pain Scale Pain Intensity 0 - Physical Exam General Appearance: no apparent distress, alert, anxiety Eye Exam: PERRL/EOMI, eyes nml inspection Ears, Nose, Throat Exam: hearing grossly normal, normal ENT inspection, normal pharynx Neck Exam: normal inspection, non-tender, supple, full range of motion Respiratory Exam: rhonchi (Right mid lung field), wheezing (Bilateral right greater than left), No chest tenderness, No respiratory distress Cardiovascular/Chest Exam: normal heart sounds, regular rate/rhythm Abdominal/Gastrointestinal Exam: soft, normal bowel sounds, No tenderness Rectal Exam: not done Extremity Exam: non-tender, normal range of motion, normal inspection, normal capillary refill, no calf tenderness, no pedal edema, pelvis stable Neurologic Exam: alert, oriented x 3, cooperative, surgical services assistant II-XII nml as tested, normal mood/affect, nml cerebellar function, nml station & gait, sensation nml Skin Exam: normal color, warm, dry Lymphatic Exam: No adenopathy SpO2 Interpretation: normal O2 Delivery: Room Air - Course Nursing assessment & vital signs reviewed: Yes EKG Interpreted by Me: RATE (80), Sinus Rhythm, NORMAL AXIS, NORMAL INTERVALS, NORMAL QRS, NORMAL ST-T, Other Ordered Tests: Active Orders 24 hr Category Date Time Status EKG-ER Only STAT Care 03/18/23 14:48 Active IV Insertion STAT Care 03/18/23 14:48 Active Pulse Oximetry (ED) STAT Care 03/18/23 14:48 Active BLOOD CULTURE Stat Lab 03/18/23 15:08 Received CBC W DIFF Stat Lab 03/18/23 14:52 Completed D-DIMER QUANTITATIVE Stat Lab 03/18/23 14:52 Completed NT PRO BNPII Stat Lab 03/18/23 14:52 Completed TROPONIN Q4H Lab 03/18/23 14:52 Completed TROPONIN Q4H Lab 03/18/23 19:00 Ordered TROPONIN Q4H Lab 03/18/23 23:00 Ordered Respiratory Therapy Assessment DAILY RT 03/18/23 15:17 Active Medication Summary Discontinued Medications Generic Name Dose Route Start Last Admin Trade Name Freq PRN Reason Stop Dose Admin Albuterol/Ipratropium Confirm 03/18/23 14:58 Ipratropium/Albuterol Sulfate 3 Ml Ampul.Neb Administered 03/18/23 14:59 Dose 3 ml IH .STK-MED ONE Albuterol/Ipratropium 3 ml 03/18/23 15:16 03/18/23 15:00 Ipratropium/Albuterol Sulfate 3 Ml Ampul.Neb IH 03/18/23 15:17 3 ml STAT ONE Administration Lab/Rad Data: Laboratory Result Diagrams 03/18/23 14:52 Laboratory Results 03/18/23 03/18/23 03/18/23 Range/Units 14:52 14:52 14:52 WBC (4.0-10.5) x10^3/uL RBC (4.1-5.4) x10^6/uL Hgb (12.0-16.0) g/dL Hct (35-47) % MCV (78-100) fL MCH (26-32) pg MCHC (32-36) g/dL RDW (11.5-14.0) % Plt Count (150-450) x10^3/uL MPV (7.5-11.0) fL Gran % (36.0-66.0) % Immature Gran % (Auto) (0.00-0.4) % Nucleat RBC Rel Count (0.00-0.1) % Eos # (Auto) (0-0.5) x10^3/uL Immature Gran # (Auto) (0.00-0.03) x10^3u/L Absolute Lymphs (auto) (1.0-4.6) x10^3/uL Absolute Monos (auto) (0.0-1.3) x10^3/uL Absolute Nucleated RBC (0.00-0.01) x10^3u/L Lymphocytes % (24.0-44.0) % Monocytes % (0.0-12.0) % Eosinophils % (0.00-5.0) % Basophils % (0.0-0.4) % Absolute Granulocytes (1.4-6.9) x10^3/uL Basophils # (0-0.4) x10^3/uL D-Dimer 0.34 (0.0-0.50) mg/L Troponin I < 0.012 (0.000-0.034) ng/mL NT-Pro-B Natriuret Pep 48.1 (<300) pg/mL 03/18/23 Range/Units 14:52 WBC 5.6 (4.0-10.5) x10^3/uL RBC 4.85 (4.1-5.4) x10^6/uL Hgb 13.9 (12.0-16.0) g/dL Hct 43.9 (35-47) % MCV 90.5 (78-100) fL MCH 28.7 (26-32) pg MCHC 31.7 L (32-36) g/dL RDW 14.1 H (11.5-14.0) % Plt Count 312 (150-450) x10^3/uL MPV 10.5 (7.5-11.0) fL Gran % 49.7 (36.0-66.0) % Immature Gran % (Auto) 0.4 (0.00-0.4) % Nucleat RBC Rel Count 0.0 (0.00-0.1) % Eos # (Auto) 1.49 H (0-0.5) x10^3/uL Immature Gran # (Auto) 0.02 (0.00-0.03) x10^3u/L Absolute Lymphs (auto) 0.72 L (1.0-4.6) x10^3/uL Absolute Monos (auto) 0.49 (0.0-1.3) x10^3/uL Absolute Nucleated RBC 0.00 (0.00-0.01) x10^3u/L Lymphocytes % 12.9 L (24.0-44.0) % Monocytes % 8.8 (0.0-12.0) % Eosinophils % 26.8 H (0.00-5.0) % Basophils % 1.4 (0.0-0.4) % Absolute Granulocytes 2.77 (1.4-6.9) x10^3/uL Basophils # 0.08 (0-0.4) x10^3/uL D-Dimer (0.0-0.50) mg/L Troponin I (0.000-0.034) ng/mL NT-Pro-B Natriuret Pep (<300) pg/mL - Progress Progress: improved, re-examined Air Movement: good Progress Note: 03/18/23 17:03 This patient's medical issue is 1 of moderate complexity. The level of complexity and the work-up performed is based on review of the patient's past medical history, review of recent outpatient chest x-ray (03/11/2023), review of the patient's medication list, reviewed the patient's drug allergy list, history present illness and physical finds on examination. Work-up in this patient includes placement of an intravenous line, infusion of 125 mg of Solu-Medrol, evaluation by respiratory therapy with small-volume nebulizer treatment, twelve- lead EKG, CBC, CMP, troponin level, D-dimer level, BNP. I opted not to repeat the chest x-ray since the patient is afebrile, she just had a chest x-ray approximately 8 days ago, her white count is within normal limits. I reviewed the results of these tests and the patient has what I feel is, acute exacerbation of COPD. We will send a prescription of prednisone to her pharmacy remotely. I recommend patient follow-up with the epitaxial reactor operator and her primary care provider to make arrangements for outpatient small-volume nebulizer machine and treatments. Blood Culture(s) Obtained: Yes Antibiotics given: No Counseled pt/family regarding: lab results, diagnosis, need for follow-up, rad results, smoking cessation Medical Desision Making - Independent Historian Additional History obtained from: Spouse - Diagnostic Testing Diagnostic test were ordered, analyzed, and reviewed by me: Yes - Risk of complications The pt has a mod risk of morbidity or mortality based on: Need for prescription drug management - Departure Departure Disposition: Home Clinical Impression: COPD exacerbation Condition: Stable Critical Care Time: No Referrals: RENEA LAMB NP [Primary Care Provider] - Follow up/PCP as directed Instructions: Chronic Obstructive Pulmonary Disease Additional Instructions: Drink plenty of fluids. Stop smoking. Take your steroids as prescribed. Call your primary care provider, 03/20/2023, to make arranges for follow-up appointment and for referral to a epitaxial reactor operator as well as making arrangements for a small- volume nebulizer machine and medication for the machine. Continue your inhalers as prescribed. Prescriptions: Prednisone 10 mg [Deltasone 10 mg] 10 mg PO TID #12 tablet
[2023-03-18 14:55] LABS: Absolute Neutrophil Ct (ANC) 2.77 x10^3/uL (1.4-6.9); BASOPHIL % 1.4 % (0.0-0.4); Basophil (Absolute #) 0.08 x10^3/uL (0-0.4); Eosinophil % 26.8 % (0.00-5.0); Eosinophil (Absolute #) 1.49 x10^3/uL (0-0.5); Hematocrit 43.9 % (35-47); Hemoglobin 13.9 g/dL (12.0-16.0); IMMATURE GRAN # 0.02 x10^3u/L (0.00-0.03); IMMATURE GRAN % 0.4 % (0.00-0.4); Lymphocyte (Absolute #) 0.72 x10^3/uL (1.0-4.6); Lymphocytes % 12.9 % (24.0-44.0); Mean Cell Volume 90.5 fL (78-100); Mean Corpuscular Hemoglobin 28.7 pg (26-32); Mean Corpuscular Hgb Concent. 31.7 g/dL (32-36); Mean Platelet Volume 10.5 fL (7.5-11.0); Monocyte (Absolute #) 0.49 x10^3/uL (0.0-1.3); Monocytes % 8.8 % (0.0-12.0); Neutrophil % 49.7 % (36.0-66.0); Platelet Count 312 x10^3/uL (150-450); Red Blood Count 4.85 x10^6/uL (4.1-5.4); Red Cell Distribution Width 14.1 % (11.5-14.0); White Blood Count 5.6 x10^3/uL (4.0-10.5)
[2023-03-18] MEDS ORDERED: DUONEB 0.5-3 MG/3 ml Neb IH ONE ×2 (14:58→15:16)
[2023-03-18 17:03] LABS: INFLUENZA A NEGATIVE (NEGATIVE); INFLUENZA B NEGATIVE (NEGATIVE); RESPIRATORY SYNCTIAL VIRUS NEGATIVE (NEGATIVE); SARS-CoV-2 Xpert Express NEGATIVE (NEGATIVE)
[2023-03-18] MEDS ORDERED: solu-MEDROL 125 MG, Sterile H2O 10 ml 2 ML IV ONE ×2 (17:08)
[2023-03-18] MEDS ORDERED: Sterile H2O 10 ml IJ ONE (17:20)
[2023-03-18] MEDS ORDERED: solu-MEDROL ONE (17:20)
[2023-03-18 17:29] VITALS: BP 118/81; PULSE 72; O2SAT 94
== END 2023-03-18 17:30 | disposition home or self-care (01) ==
LOC: ED 14:04
DX: J44.1 Chronic obstructive pulmonary disease with (acute) exacerbation (principal); R06.02 Shortness of breath; R05.9 Cough, unspecified; Z79.52 Long term (current) use of systemic steroids; Z79.899 Other long term (current) drug therapy
CPT/HCPCS: 0241U; 36000; 36415; 83880; 84484; 85025; 85379; 87040; 93005; 94640; 94760; 96374; 99284; J2930; A9270-GY

== ENCOUNTER 2023-08-05 16:29 | Observation (INO) | payer BC ==
--- NOTE | 2023-08-05 16:35 | ERPHSYRPT ---
- History of Present Illness Time Seen by Provider: 08/05/23 16:34 Source: patient, family Exam Limitations: no limitations Physician History: This is a 52-year-old white female patient who presents to the emergency department with a few day history of cough that is nonproductive, fever, chills, body aches. Patient took Excedrin to treat her fever today at 1330. Patient denies chest pain. Patient has no shortness of breath. Patient arrives to the emergency department tachycardic with a significant fever. Patient has a history of asthma, COPD and anxiety. Patient has no history of known exposures to individuals with similar symptoms or who have been diagnosed with flus or COVID. Timing/Duration: day(s) (A few days) Severity: moderate Associated Symptoms: cough, fever, loss of appetite, No abdominal pain, No shortness of breath Allergies/Adverse Reactions: Penicillins Allergy (Verified 08/05/23 16:54) unknown Home Medications: Venlafaxine HCl [Venlafaxine HCl ER] 75 mg PO DAILY 07/04/22 [History] Cyanocobalamin 1000 Mcg/ml [Cyanocobalamin B-12 1000 MCG/ML] 1 ml SQ DIRECTIONS UNKNOWN 08/05/23 [History] Ergocalciferol (Vitamin D2) [Vitamin D2] 1 cap PO WEEKLY 08/05/23 [History] Fluticasone/Vilanterol [Breo Ellipta 100-25 Mcg Inhalr] 1 puff PO DAILY 08/05/23 [History] Gabapentin [Neurontin] 300 mg PO TID 08/05/23 [History] Levothyroxine Sodium [Unithroid] 1 tab PO DAILY 08/05/23 [History] Montelukast Sodium 10 mg [Singulair 10 MG] 1 tab PO DAILY 08/05/23 [History] Phentermine HCl 1 tab PO DAILY 08/05/23 [History] Varenicline Tartrate [Chantix] 1 tab PO BID 08/05/23 [History] Hx Tetanus, Diphtheria Vaccination/Date Given: Yes Hx Influenza Vaccination/Date Given: No Hx Pneumococcal Vaccination/Date Given: No Travel Risk - International Travel Have you traveled outside of the country in past 3 weeks: No - Coronavirus Screening Are you exhibiting any of the following symptoms?: Yes Symptoms: Fever, Cough: New Onset, Headaches/Body Aches/Fatigue Close contact with a COVID-19 positive Pt in past 14-21 Days: No - Vaccine Status Have you recieved a Covid-19 vaccination: Yes Resident Care Manager: Moderna - Vaccination Dates Date of 2cond Vaccination (if applicable): February 2021 - Review of Systems Constitutional: Fever, Chills, Weakness Eyes: No Symptoms Ears, Nose, & Throat: No Symptoms Respiratory: Cough Cardiac: No Symptoms Abdominal/Gastrointestinal: No Symptoms Genitourinary Symptoms: No Symptoms Musculoskeletal: Arthralgias, Myalgias Skin: No Symptoms Neurological: No Symptoms Psychological: No Symptoms Endocrine: No Symptoms Hematologic/Lymphatic: No Symptoms Immunological/Allergic: No Symptoms All Other Systems: Reviewed and Negative - Past Medical History Pertinent Past Medical History: Yes Neurological History: No Pertinent History ENT History: No Pertinent History Cardiac History: No Pertinent History Respiratory History: Asthma, COPD, Pneumonia Endocrine Medical History: Hypothyroidism Musculoskeletal History: No Pertinent History GI Medical History: No Pertinent History History: No Pertinent History Psycho-Social History: Anxiety Female Reproductive Disorders: Other Other Medical History: cervical cell abnormality, left knee bone spur/arthritis, anemia- iron def - Past Surgical History Past Surgical History: Yes Neuro Surgical History: No Pertinent History Cardiac: No Pertinent History Respiratory: No Pertinent History Gastrointestinal: Cholecystectomy, Exploratory Laparoscopy Genitourinary: No Pertinent History Musculoskeletal: Orthopedic Surgery Female Surgical History: Section, Other Other Surgical History: LEEP, bone spur,. ovarian cystectomy - Social History Smoking Status: Former smoker How long have you smoked: 30 yrs Exposure to second hand smoke: No Drug Use: none Patient Lives Alone: No - Nursing Vital Signs Nursing Vital Signs: Initial Vital Signs Respiratory Rate 31 H 08/05/23 16:40 O2 Sat by Pulse Oximetry 97 08/05/23 16:40 Pain Scale Pain Intensity 2 - Physical Exam General Appearance: no apparent distress, alert, anxiety Eye Exam: PERRL/EOMI, eyes nml inspection Ears, Nose, Throat Exam: normal ENT inspection, moist mucous membranes Neck Exam: normal inspection, non-tender, supple, full range of motion Respiratory Exam: normal breath sounds, lungs clear, airway intact, No chest tenderness, No respiratory distress Cardiovascular Exam: tachycardia Gastrointestinal/Abdomen Exam: soft, normal bowel sounds, No tenderness Pelvic Exam: not done Rectal Exam: not done Back Exam: normal inspection, normal range of motion, No CVA tenderness, No vertebral tenderness Extremity Exam: normal inspection, normal range of motion, pelvis stable Neurologic Exam: alert, oriented x 3, cooperative, casing puller II-XII nml as tested, normal mood/affect, nml cerebellar function, nml station & gait, sensation nml Skin Exam: normal color, warm, dry Lymphatic Exam: No adenopathy SpO2 Interpretation: normal O2 Delivery: Room Air - Course Nursing assessment & vital signs reviewed: Yes Ordered Tests: Active Orders 24 hr Category Date Time Status IV Insertion STAT Care 08/05/23 17:03 Active CHEST 1 VIEW (PORTABLE) Stat Exams 08/05/23 18:08 Taken BLOOD CULTURE Stat Lab 08/05/23 17:04 Received CBC W DIFF Stat Lab 08/05/23 16:50 Completed CMP Stat Lab 08/05/23 16:50 Completed MONO SCREEN Stat Lab 08/05/23 16:50 Completed UA W/RFX UR CULTURE Stat Lab 08/05/23 16:55 Completed Medication Summary Discontinued Medications Generic Name Dose Route Start Last Admin Trade Name Kristel PRN Reason Stop Dose Admin Acetaminophen 650 mg 08/05/23 17:01 08/05/23 17:08 Acetaminophen 325 Mg Tablet PO 08/05/23 17:02 650 mg STAT STA Administration Acetaminophen Confirm 08/05/23 17:07 Acetaminophen 325 Mg Tablet Administered 08/05/23 17:08 Dose 650 mg .ROUTE .STK-MED ONE Hydrocodone Bitart/Acetaminophen 10 ml 08/05/23 17:04 08/05/23 17:09 Hydrocodone/Acetaminophen 5 Ml Udcup PO 08/05/23 17:05 10 ml STAT STA Administration Hydrocodone Bitart/Acetaminophen Confirm 08/05/23 17:06 Hydrocodone/Acetaminophen 5 Ml Udcup Administered 08/05/23 17:07 Dose 10 ml .ROUTE .STK-MED ONE Sodium Chloride 1,000 mls @ 999 mls/hr 08/05/23 17:03 08/05/23 18:11 Sodium Chloride 0.9% 1000 Ml IV 08/05/23 18:03 Infused .Q1H1M STA Infusion Sodium Chloride Confirm 08/05/23 17:07 Sodium Chloride 0.9% 1000 Ml Administered 08/05/23 17:08 Dose 1,000 mls @ ud .ROUTE .STK-MED ONE Ondansetron HCl 4 mg 08/05/23 17:03 08/05/23 17:12 Ondansetron Hcl 4 Mg/2 Ml Vial IV 08/05/23 17:04 4 mg STAT STA Administration Ondansetron HCl Confirm 08/05/23 17:06 Ondansetron Hcl 4 Mg/2 Ml Vial Administered 08/05/23 17:07 Dose 4 mg .ROUTE .K-MED ONE Lab/Rad Data: Laboratory Result Diagrams 08/05/23 16:50 08/05/23 16:50 Laboratory Results 08/05/23 08/05/23 08/05/23 Range/Units 17:30 17:30 16:55 WBC (4.0-10.5) x10^3/uL RBC (4.1-5.4) x10^6/uL Hgb (12.0-16.0) g/dL Hct (35-47) % MCV (78-100) fL MCH (26-32) pg MCHC (32-36) g/dL RDW (11.5-14.0) % Plt Count (150-450) x10^3/uL MPV (7.5-11.0) fL Gran % (36.0-66.0) % Immature Gran % (Auto) (0.00-0.4) % Nucleat RBC Rel Count (0.00-0.1) % Eos # (Auto) (0-0.5) x10^3/uL Immature Gran # (Auto) (0.00-0.03) x10^3u/L Absolute Lymphs (auto) (1.0-4.6) x10^3/uL Absolute Monos (auto) (0.0-1.3) x10^3/uL Absolute Nucleated RBC (0.00-0.01) x10^3u/L Lymphocytes % (24.0-44.0) % Monocytes % (0.0-12.0) % Eosinophils % (0.00-5.0) % Basophils % (0.0-0.4) % Absolute Granulocytes (1.4-6.9) x10^3/uL Basophils # (0-0.4) x10^3/uL Sodium (137-145) mmol/L Potassium (3.5-5.1) mmol/L Chloride (98-107) mmol/L Carbon Dioxide (22-30) mmol/L Anion Gap (5-15) MEQ/L BUN (7-17) mg/dL Creatinine (0.52-1.04) mg/dL Estimated GFR ML/MIN Glucose (74-106) mg/dL Calcium (8.4-10.2) mg/dL Total Bilirubin (0.2-1.3) mg/dL AST (14-36) U/L ALT (0-35) U/L Alkaline Phosphatase (38-126) U/L Serum Total Protein (6.3-8.2) g/dL Albumin (3.5-5.0) g/dL Urine Color Yellow (Yellow) Urine Appearance Clear (Clear) Urine pH 5.5 (4.6-8.0) Ur Specific [place] 1.020 (1.005-1.030) Urine Protein Trace A (Negative) Urine Glucose (UA) Negative (Negative) mg/dL Urine Ketones Trace A (Negative) Urine Blood Negative (Negative) Urine Nitrite Negative (Negative) Urine Bilirubin Negative (Negative) Urine Urobilinogen 0.2 (0.2) mg/dL Ur Leukocyte Esterase Negative (Negative) U Hyaline Cast (Auto) 3-5 A (0-2) /LPF Urine Microscopic RBC 0-2 (0-5) /HPF Urine Microscopic WBC 3-5 (0-5) /HPF Ur Epithelial Cells Few (None Seen) /HPF Urine Bacteria Rare A (None Seen) /HPF Urine Culture Reflexed NO (NO) Monoscreen (NEGATIVE) Influenza Type A Ag NEGATIVE (NEGATIVE) Influenza Type B Ag NEGATIVE (NEGATIVE) RSV (PCR) NEGATIVE (NEGATIVE) SARS-CoV-2 (PCR) NEGATIVE (NEGATIVE) Group A Strep Antibody NOT DETECTED (NEGATIVE) 08/05/23 08/05/23 08/05/23 Range/Units 16:50 16:50 16:50 WBC 17.9 H (4.0-10.5) x10^3/uL RBC 4.65 (4.1-5.4) x10^6/uL Hgb 12.5 (12.0-16.0) g/dL Hct 39.9 (35-47) % MCV 85.8 (78-100) fL MCH 26.9 (26-32) pg MCHC 31.3 L (32-36) g/dL RDW 13.1 (11.5-14.0) % Plt Count 287 (150-450) x10^3/uL MPV 10.8 (7.5-11.0) fL Gran % 88.2 H (36.0-66.0) % Immature Gran % (Auto) 1.1 H (0.00-0.4) % Nucleat RBC Rel Count 0.0 (0.00-0.1) % Eos # (Auto) 0.05 (0-0.5) x10^3/uL Immature Gran # (Auto) 0.20 H (0.00-0.03) x10^3u/L Absolute Lymphs (auto) 0.70 L (1.0-4.6) x10^3/uL Absolute Monos (auto) 1.13 (0.0-1.3) x10^3/uL Absolute Nucleated RBC 0.00 (0.00-0.01) x10^3u/L Lymphocytes % 3.9 L (24.0-44.0) % Monocytes % 6.3 (0.0-12.0) % Eosinophils % 0.3 (0.00-5.0) % Basophils % 0.2 (0.0-0.4) % Absolute Granulocytes 15.82 H (1.4-6.9) x10^3/uL Basophils # 0.04 (0-0.4) x10^3/uL Sodium 135 L (137-145) mmol/L Potassium 3.4 L (3.5-5.1) mmol/L Chloride 99 (98-107) mmol/L Carbon Dioxide 24 (22-30) mmol/L Anion Gap 15.2 H (5-15) MEQ/L BUN 13 (7-17) mg/dL Creatinine 1.00 (0.52-1.04) mg/dL Estimated GFR 67.8 ML/MIN Glucose 110 H (74-106) mg/dL Calcium 8.9 (8.4-10.2) mg/dL Total Bilirubin 0.60 (0.2-1.3) mg/dL AST 32 (14-36) U/L ALT 18 (0-35) U/L Alkaline Phosphatase 72 (38-126) U/L Serum Total Protein 7.7 (6.3-8.2) g/dL Albumin 4.2 (3.5-5.0) g/dL Urine Color (Yellow) Urine Appearance (Clear) Urine pH (4.6-8.0) Ur Specific [place] (1.005-1.030) Urine Protein (Negative) Urine Glucose (UA) (Negative) mg/dL Urine Ketones (Negative) Urine Blood (Negative) Urine Nitrite (Negative) Urine Bilirubin (Negative) Urine Urobilinogen (0.2) mg/dL Ur Leukocyte Esterase (Negative) U Hyaline Cast (Auto) (0-2) /LPF Urine Microscopic RBC (0-5) /HPF Urine Microscopic WBC (0-5) /HPF Ur Epithelial Cells (None Seen) /HPF Urine Bacteria (None Seen) /HPF Urine Culture Reflexed (NO) Monoscreen NEGATIVE (NEGATIVE) Influenza Type A Ag (NEGATIVE) Influenza Type B Ag (NEGATIVE) RSV (PCR) (NEGATIVE) SARS-CoV-2 (PCR) (NEGATIVE) Group A Strep Antibody (NEGATIVE) - Progress Progress: improved, re-examined Progress Note: 08/05/23 17:30 This patient's medical issue is 1 of moderate complexity. The level complex in the work-up performed is based on review of the patient's past medical history, review of the patient's medication list, review of patient's drug allergy list, history of present illness and physical findings on examination. The work-up in this patient includes intravenous line, normal saline infusion, Tylenol 650 mg orally, hydrocodone with acetaminophen orally, chest x-ray, twelve-lead EKG, CBC, CMP, monoscreen, viral screen, strep test, urinalysis. 08/05/23 19:36 Patient's laboratory data results were interpreted by me. Patient has a l eukocytosis. There is a left shift present. Chest x-ray was interpreted by me. There is a right perihilar infiltrate present that was not present on a comparison chest x-ray dated 04/04/2023. Counseled pt/family regarding: lab results, diagnosis, need for follow-up, rad results Medical Desision Making - Independent Historian Additional History obtained from: Spouse - Risk of complications The pt has a mod risk of morbidity or mortality based on: Need for prescription drug management - Departure Departure Disposition: Home Clinical Impression: Right middle lobe pneumonia Condition: Stable Critical Care Time: No Referrals: RENEA LAMB DURALUMIN METALWORKER [Primary Care Provider] - Follow up/PCP as directed Additional Instructions: Take your medication as prescribed. Call your primary care provider tomorrow, 08/06/2023 to make arrangements for follow-up appointment for further evaluation and management. Prescriptions: Hydrocodone/Acetaminophen [Hydrocodone-Acetamn 7.5-325/15] 10 ml PO Q8H PRN #120 ml MDD 30 ml PRN Reason: Cough Albuterol 8 gm Mdi Hfa [Ventolin Hfa MDI] 8 gm IH Q4H #1 unit Azithromycin 250 mg [Zithromax 250 MG TABLET] 250 mg PO ZPACK #6 tablet
[2023-08-05] MEDS ORDERED: TYLENOL 325 MG PO STA (17:01)
[2023-08-05] MEDS ORDERED: Zofran 4 MG/2 ML VIAL IV STA (17:03)
[2023-08-05] MEDS ORDERED: Sodium Chloride 0.9% 1000 ML 1,000 ML IV STA ×2 (17:03→19:43)
[2023-08-05] MEDS ORDERED: HYDROCODONE-ACETAMIN 2.5-108/5 ML SOLUTION PO STA (17:04)
[2023-08-05] MEDS ORDERED: HYDROCODONE-ACETAMIN 2.5-108/5 ML SOLUTION ONE (17:06)
[2023-08-05] MEDS ORDERED: Zofran 4 MG/2 ML VIAL ONE (17:06)
[2023-08-05] MEDS ORDERED: TYLENOL 325 MG ONE (17:07)
[2023-08-05] MEDS ORDERED: Sodium Chloride 0.9% 1000 ML 1,000 ML ONE ×2 (17:07→19:44)
[2023-08-05 17:10] LABS: Absolute Neutrophil Ct (ANC) 15.82 x10^3/uL (1.4-6.9); BASOPHIL % 0.2 % (0.0-0.4); Basophil (Absolute #) 0.04 x10^3/uL (0-0.4); Eosinophil % 0.3 % (0.00-5.0); Eosinophil (Absolute #) 0.05 x10^3/uL (0-0.5); Hematocrit 39.9 % (35-47); Hemoglobin 12.5 g/dL (12.0-16.0); IMMATURE GRAN % 1.1 % (0.00-0.4); Lymphocytes % 3.9 % (24.0-44.0); Mean Cell Volume 85.8 fL (78-100); Mean Corpuscular Hemoglobin 26.9 pg (26-32); Mean Corpuscular Hgb Concent. 31.3 g/dL (32-36); Mean Platelet Volume 10.8 fL (7.5-11.0); Monocyte (Absolute #) 1.13 x10^3/uL (0.0-1.3); Monocytes % 6.3 % (0.0-12.0); Neutrophil % 88.2 % (36.0-66.0); Platelet Count 287 x10^3/uL (150-450); Red Blood Count 4.65 x10^6/uL (4.1-5.4); Red Cell Distribution Width 13.1 % (11.5-14.0); White Blood Count 17.9 x10^3/uL (4.0-10.5)
[2023-08-05 17:17] LABS: Appearance Clear (Clear); Bacteria Rare /HPF (None Seen); Bilirubin Negative (Negative); Blood Negative (Negative); Epithelial Cells Few /HPF (None Seen); Glucose, Urine Negative (Negative); Ketones Trace (Negative); Leukocyte Esterase Negative (Negative); Nitrite Negative (Negative); Ph 5.5 (4.6-8.0); Protein,Urine Dip Trace (Negative); RBC 0-2 /HPF (0-5); Urobilinogen 0.2 mg/dL (0.2)
[2023-08-05 17:18] LABS: ADD URINE CULTURE? NO (NO)
[2023-08-05 17:18] LABS: ALBUMIN 4.2 g/dL (3.5-5.0); ANION GAP 15.2 MEQ/L (5-15); BILIRUBIN,TOTAL 0.6 mg/dL (0.2-1.3); Calcium 8.9 mg/dL (8.4-10.2); EST GLOMERULAR FILTRATION RATE 67.8 ML/MIN; Potassium 3.4 mmol/L (3.5-5.1); Total Protein 7.7 g/dL (6.3-8.2)
[2023-08-05 18:24] LABS: INFLUENZA A NEGATIVE (NEGATIVE); INFLUENZA B NEGATIVE (NEGATIVE); RESPIRATORY SYNCTIAL VIRUS NEGATIVE (NEGATIVE); SARS-CoV-2 Xpert Express NEGATIVE (NEGATIVE)
[2023-08-05] MEDS ORDERED: Levofloxacin 500MG/100ML D5W 500 MG/100 ML BAG IV STA (19:34)
[2023-08-05] MEDS ORDERED: solu-MEDROL 125 MG, Sterile H2O 10 ml 2 ML IV ONE ×2 (19:34)
[2023-08-05] MEDS ORDERED: solu-MEDROL ONE (19:44)
[2023-08-05] MEDS ORDERED: Levofloxacin 500MG/100ML D5W 500 MG/100 ML BAG IV ONE (19:44)
[2023-08-05] MEDS ORDERED: Sterile H2O 10 ml IJ ONE (19:44)
[2023-08-05] MEDS ORDERED: Sodium Chloride 0.9% 1000 ML 1,000 ML IV SCH (22:15)
--- NOTE | 2023-08-05 22:17 | PCM.HP ---
History of Present Illness - Chief Complaint Chief Complaint: Pneumonia Date: 08/05/23 History of Present Illness: Ms. Ames is a 52 year old female with a past medical history significant for hypertension, hypothyroidism, COPD, tobacco use (recently stopped) and previous episode of pneumonia who presents to the hospital with complaints of fever, chills and cough productive of yellowish sputum. She was found to have a temp of 103 in the ER and initial CXR appeared to show a right sided pneumonia. She was given antibiotics and steroids, but became hypoxic with ambulation associated with tachycardia, so she was recommended for admission. She reports that people around her have been sick with respiratory issues but no known positive influenza or COVID exposures. - Review of Systems Constitutional: Fever, Chills Eyes: No Symptoms Ears, Nose, & Throat: No Symptoms Respiratory: Cough, Short Of Breath Cardiac: No Symptoms Abdominal/Gastrointestinal: No Symptoms Genitourinary Symptoms: No Symptoms Musculoskeletal: No Symptoms Skin: No Symptoms Neurological: No Symptoms Psychological: No Symptoms Endocrine: No Symptoms Hematologic/Lymphatic: No Symptoms Immunological/Allergic: No Symptoms All Other Systems: Reviewed and Negative Medications & Allergies Home Medications: Home Medication List Venlafaxine HCl [Venlafaxine HCl ER] 75 mg PO DAILY 07/04/22 [History Confirmed 08/05/23] Albuterol 8 gm Mdi Hfa [Ventolin Hfa MDI] 8 gm IH Q4H #1 unit 08/05/23 [Rx] Azithromycin 250 mg [Zithromax 250 MG TABLET] 250 mg PO ZPACK #6 tablet 08/05/23 [Rx] Cyanocobalamin 1000 Mcg/ml [Cyanocobalamin B-12 1000 MCG/ML] 1 ml SQ DIRECTIONS UNKNOWN 08/05/23 [History Confirmed 08/05/23] Ergocalciferol (Vitamin D2) [Vitamin D2] 1 cap PO WEEKLY 08/05/23 [History Confirmed 08/05/23] Fluticasone/Vilanterol [Breo Ellipta 100-25 Mcg Inhalr] 1 puff PO DAILY 08/05/23 [History Confirmed 08/05/23] Gabapentin [Neurontin] 300 mg PO TID 08/05/23 [History Confirmed 08/05/23] Hydrocodone/Acetaminophen [Hydrocodone-Acetamn 7.5-325/15] 10 ml PO Q8H PRN #120 ml MDD 30 ml 08/05/23 [Rx] Levothyroxine Sodium [Unithroid] 1 tab PO DAILY 08/05/23 [History Confirmed 08/05/23] Montelukast Sodium 10 mg [Singulair 10 MG] 1 tab PO DAILY 08/05/23 [History Confirmed 08/05/23] Phentermine HCl 1 tab PO DAILY 08/05/23 [History Confirmed 08/05/23] Varenicline Tartrate [Chantix] 1 tab PO BID 08/05/23 [History Confirmed 08/05/23] Allergies/Adverse Reactions: Allergies Allergy/AdvReac Type Severity Reaction Status Date / Time Penicillins Allergy unknown Verified 08/05/23 16:54 - Past Medical History Past Medical History: Yes Neurological History: No Pertinent History ENT History: No Pertinent History Cardiac History: No Pertinent History Respiratory History: Asthma, COPD, Pneumonia Endocrine Medical History: Hypothyroidism Musculoskelatal History: No Pertinent History GI Medical History: No Pertinent History History: No Pertinent History Pyscho-Social History: Anxiety Reproductive Disorders: Other Comment: cervical cell abnormality, left knee bone spur/arthritis, anemia- iron def - Female History Are you now?: No - Past Surgical History Past Surgical History: Yes Neuro Surgical History: No Pertinent History Cardiac History: No Pertinent History Respiratory Surgery: No Pertinent History GI Surgical History: Cholecystectomy, Exploratory Laparoscopy Genitourinary Surgical Hx: No Pertinent History Musculskeletal Surgical Hx: Orthopedic Surgery Female Surgical History: Section, Other Other Surgical History: LEEP, bone spur,. ovarian cystectomy - Social History Smoking Status: Former smoker How long have you smoked: 30 yrs Exposure to second hand smoke: No Alcohol: Rarely Drug Use: none - Physical Exam Vital Signs: Vital Signs - 24 hr Temp Pulse Resp BP BP Pulse Ox 08/05/23 21:14 98.6 F 111 H 16 109/60 95 08/05/23 20:20 130 H 26 H 98 08/05/23 20:15 119 H 23 86/63 99 08/05/23 20:00 129 H 20 92/50 08/05/23 19:45 109 H 18 101/60 98 08/05/23 19:30 119 H 22 86/63 97 08/05/23 19:15 122 H 23 97/63 95 11/20/23 19:00 122 H 24 107/58 89 L 08/05/23 18:45 121 H 22 108/57 08/05/23 18:30 118 H 23 106/59 08/05/23 18:15 120 H 25 H 93/49 08/05/23 18:00 103 F 127 H 23 107/68 91 L 08/05/23 17:45 123 H 28 H 111/65 92 L 08/05/23 17:30 127 H 28 H 107/52 08/05/23 17:16 134 H 26 H 114/60 95 08/05/23 17:00 132 H 21 90/61 94 L 08/05/23 16:41 103 F 142 H 31 H 110/69 97 08/05/23 16:40 31 H 97 General Appearance: no apparent distress Neurologic Exam: alert, oriented x 3 Ears, Nose, Throat Exam: dry mucous membranes Neck Exam: supple Respiratory Exam: No respiratory distress, No accessory muscle use Cardiovascular Exam: regular rate/rhythm Gastrointestinal/Abdomen Exam: soft Extremity Exam: No swelling Skin Exam: normal color, No cyanosis, No jaundice Results - Labs Lab/Micro Results: Lab Results-Last 24 Hours 08/05/23 08/05/23 08/05/23 Range/Units 16:50 16:50 16:50 WBC 17.9 H (4.0-10.5) x10^3/uL RBC 4.65 (4.1-5.4) x10^6/uL Hgb 12.5 (12.0-16.0) g/dL Hct 39.9 (35-47) % MCV 85.8 (78-100) fL MCH 26.9 (26-32) pg MCHC 31.3 L (32-36) g/dL RDW 13.1 (11.5-14.0) % Plt Count 287 (150-450) x10^3/uL MPV 10.8 (7.5-11.0) fL Gran % 88.2 H (36.0-66.0) % Immature Gran % (Auto) 1.1 H (0.00-0.4) % Nucleat RBC Rel Count 0.0 (0.00-0.1) % Eos # (Auto) 0.05 (0-0.5) x10^3/uL Immature Gran # (Auto) 0.20 H (0.00-0.03) x10^3u/L Absolute Lymphs (auto) 0.70 L (1.0-4.6) x10^3/uL Absolute Monos (auto) 1.13 (0.0-1.3) x10^3/uL Absolute Nucleated RBC 0.00 (0.00-0.01) x10^3u/L Lymphocytes % 3.9 L (24.0-44.0) % Monocytes % 6.3 (0.0-12.0) % Eosinophils % 0.3 (0.00-5.0) % Basophils % 0.2 (0.0-0.4) % Absolute Granulocytes 15.82 H (1.4-6.9) x10^3/uL Basophils # 0.04 (0-0.4) x10^3/uL Sodium 135 L (137-145) mmol/L Potassium 3.4 L (3.5-5.1) mmol/L Chloride 99 (98-107) mmol/L Carbon Dioxide 24 (22-30) mmol/L Anion Gap 15.2 H (5-15) MEQ/L BUN 13 (7-17) mg/dL Creatinine 1.00 (0.52-1.04) mg/dL Estimated GFR 67.8 ML/MIN Glucose 110 H (74-106) mg/dL Calcium 8.9 (8.4-10.2) mg/dL Total Bilirubin 0.60 (0.2-1.3) mg/dL AST 32 (14-36) U/L ALT 18 (0-35) U/L Alkaline Phosphatase 72 (38-126) U/L Serum Total Protein 7.7 (6.3-8.2) g/dL Albumin 4.2 (3.5-5.0) g/dL Urine Color (Yellow) Urine Appearance (Clear) Urine pH (4.6-8.0) Ur Specific [place] (1.005-1.030) Urine Protein (Negative) Urine Glucose (UA) (Negative) mg/dL Urine Ketones (Negative) Urine Blood (Negative) Urine Nitrite (Negative) Urine Bilirubin (Negative) Urine Urobilinogen (0.2) mg/dL Ur Leukocyte Esterase (Negative) U Hyaline Cast (Auto) (0-2) /LPF Urine Microscopic RBC (0-5) /HPF Urine Microscopic WBC (0-5) /HPF Ur Epithelial Cells (None Seen) /HPF Urine Bacteria (None Seen) /HPF Urine Culture Reflexed (NO) Monoscreen NEGATIVE (NEGATIVE) Influenza Type A Ag (NEGATIVE) Influenza Type B Ag (NEGATIVE) RSV (PCR) (NEGATIVE) SARS-CoV-2 (PCR) (NEGATIVE) Group A Strep Antibody (NEGATIVE) 08/05/23 08/05/23 08/05/23 Range/Units 16:55 17:30 17:30 WBC (4.0-10.5) x10^3/uL RBC (4.1-5.4) x10^6/uL Hgb (12.0-16.0) g/dL Hct (35-47) % MCV (78-100) fL MCH (26-32) pg MCHC (32-36) g/dL RDW (11.5-14.0) % Plt Count (150-450) x10^3/uL MPV (7.5-11.0) fL Gran % (36.0-66.0) % Immature Gran % (Auto) (0.00-0.4) % Nucleat RBC Rel Count (0.00-0.1) % Eos # (Auto) (0-0.5) x10^3/uL Immature Gran # (Auto) (0.00-0.03) x10^3u/L Absolute Lymphs (auto) (1.0-4.6) x10^3/uL Absolute Monos (auto) (0.0-1.3) x10^3/uL Absolute Nucleated RBC (0.00-0.01) x10^3u/L Lymphocytes % (24.0-44.0) % Monocytes % (0.0-12.0) % Eosinophils % (0.00-5.0) % Basophils % (0.0-0.4) % Absolute Granulocytes (1.4-6.9) x10^3/uL Basophils # (0-0.4) x10^3/uL Sodium (137-145) mmol/L Potassium (3.5-5.1) mmol/L Chloride (98-107) mmol/L Carbon Dioxide (22-30) mmol/L Anion Gap (5-15) MEQ/L BUN (7-17) mg/dL Creatinine (0.52-1.04) mg/dL Estimated GFR ML/MIN Glucose (74-106) mg/dL Calcium (8.4-10.2) mg/dL Total Bilirubin (0.2-1.3) mg/dL AST (14-36) U/L ALT (0-35) U/L Alkaline Phosphatase (38-126) U/L Serum Total Protein (6.3-8.2) g/dL Albumin (3.5-5.0) g/dL Urine Color Yellow (Yellow) Urine Appearance Clear (Clear) Urine pH 5.5 (4.6-8.0) Ur Specific [place] 1.020 (1.005-1.030) Urine Protein Trace A (Negative) Urine Glucose (UA) Negative (Negative) mg/dL Urine Ketones Trace A (Negative) Urine Blood Negative (Negative) Urine Nitrite Negative (Negative) Urine Bilirubin Negative (Negative) Urine Urobilinogen 0.2 (0.2) mg/dL Ur Leukocyte Esterase Negative (Negative) U Hyaline Cast (Auto) 3-5 A (0-2) /LPF Urine Microscopic RBC 0-2 (0-5) /HPF Urine Microscopic WBC 3-5 (0-5) /HPF Ur Epithelial Cells Few (None Seen) /HPF Urine Bacteria Rare A (None Seen) /HPF Urine Culture Reflexed NO (NO) Monoscreen (NEGATIVE) Influenza Type A Ag NEGATIVE (NEGATIVE) Influenza Type B Ag NEGATIVE (NEGATIVE) RSV (PCR) NEGATIVE (NEGATIVE) SARS-CoV-2 (PCR) NEGATIVE (NEGATIVE) Group A Strep Antibody NOT DETECTED (NEGATIVE) - Radiology Impressions Radiology Exams & Impressions: Radiology Procedures Category Date Time Status CHEST 1 VIEW (PORTABLE) Stat Exams 08/05/23 18:08 Taken - Other Procedures and Tests Respiratory Therapy 08/05/23 20:20 Respiratory Therapy Assessment DAILY Assessment/Plan (1) Right middle lobe pneumonia Current Visit: Yes Status: Acute Assessment & Plan: Assessment 1. RML pneumonia with associated fever, elevated WBC and hypoxemia Plan 1. Admit to observation status 2. Empiric antibiotics with Levaquin given PCN allergy 3. IVFs for intravascular volume depletion 4. Wean steroids 5. Monitor vitals, O2 sats Code(s): J18.9 - PNEUMONIA, UNSPECIFIED ORGANISM (2) Acute on chronic respiratory failure with hypoxemia Current Visit: No Status: Acute Assessment & Plan: Will continue steroids/antibiotics/nebulizer treatments Monitor O2 sats Repeat CXR Code(s): J96.21 - ACUTE AND CHRONIC RESPIRATORY FAILURE WITH HYPOXIA (3) Hypothyroidism Current Visit: No Status: Chronic Assessment & Plan: Will continue outpatient Levothyroxine Code(s): E03.9 - HYPOTHYROIDISM, UNSPECIFIED Telemedicine Encounter - Telemedicine Encounter Telemedicine Encounter: The entirety of this encounter was performed via Telemedicine"
[2023-08-05] MEDS ORDERED: TYLENOL 325 MG PO PRN (22:27)
[2023-08-06] MEDS ORDERED: DUONEB 0.5-3 MG/3 ml Neb IH PRN (02:42)
[2023-08-06 05:10] LABS: Hematocrit 34.4 % (35-47); Hemoglobin 10.6 g/dL (12.0-16.0); Mean Cell Volume 86.9 fL (78-100); Mean Corpuscular Hemoglobin 26.8 pg (26-32); Mean Corpuscular Hgb Concent. 30.8 g/dL (32-36); Mean Platelet Volume 10.7 fL (7.5-11.0); Platelet Count 259 x10^3/uL (150-450); Red Blood Count 3.96 x10^6/uL (4.1-5.4); Red Cell Distribution Width 13.4 % (11.5-14.0); White Blood Count 18.9 x10^3/uL (4.0-10.5)
[2023-08-06] MEDS: TYLENOL 325 MG PO PRN ×2 (05:15→12:22)
[2023-08-06 05:30] LABS: ALBUMIN 3.3 g/dL (3.5-5.0); BILIRUBIN,TOTAL 0.3 mg/dL (0.2-1.3); Calcium 8.1 mg/dL (8.4-10.2); Creatinine 1 0.73 mg/dL (0.52-1.04); EST GLOMERULAR FILTRATION RATE 98.9 ML/MIN; Potassium 3.5 mmol/L (3.5-5.1); Total Protein 6.3 g/dL (6.3-8.2)
[2023-08-06] MEDS ORDERED: SYNTHROID 88 MCG PO SCH (07:00)
[2023-08-06] MEDS ORDERED: FLUTICASONE-SALMETEROL 250-50 IH SCH ×2 (07:00)
[2023-08-06] MEDS: SYNTHROID 88 MCG PO SCH (07:29)
[2023-08-06] MEDS: Advair Hfa 115/21 Common canister IH SCH ×2 (07:30→18:57)
--- NOTE | 2023-08-06 08:50 | XRAY ---
Indication: Cough and weakness. Comparison: April 04, 2023 Portable chest demonstrates new right suprahilar patchy groundglass airspace disease without consolidation/large effusion. Remaining heart, left lung, and bony thorax unremarkable.
[2023-08-06] MEDS: solu-MEDROL 40 MG, Sterile H2O 10 ml 1 ML IV SCH ×4 (09:47→21:16)
[2023-08-06] MEDS: Effexor XR 75 MG PO SCH (09:47)
[2023-08-06] MEDS: NEURONTIN PO SCH ×3 (09:47→21:16)
[2023-08-06] MEDS: Singulair 10 MG PO SCH (09:47)
[2023-08-06] MEDS ORDERED: NON-FORMULARY ITEM (Fluticasone/Vilanterol [Breo Ellipta 100-25 Mcg Inhalr] 1 EACH Blst.W. PO SCH (10:00)
[2023-08-06] MEDS ORDERED: NON-FORMULARY ITEM (Venlafaxine Hcl [Venlafaxine Hcl Er] 75 MG Tab.Er.24) PO SCH (10:00)
[2023-08-06] MEDS ORDERED: Levofloxacin 500MG/100ML D5W 500 MG/100 ML BAG IV SCH ×3 (10:00→18:00)
[2023-08-06] MEDS ORDERED: Cyanocobalamin B-12 1000 MCG/ML SQ SCH (10:00)
[2023-08-06] MEDS ORDERED: Singulair 10 MG PO SCH (10:00)
[2023-08-06] MEDS ORDERED: solu-MEDROL 40 MG, Sterile H2O 10 ml 1 ML IV SCH ×2 (10:00)
[2023-08-06] MEDS ORDERED: NEURONTIN PO SCH (10:00)
[2023-08-06] MEDS ORDERED: VARENICLINE TARTRATE PO SCH (10:00)
[2023-08-06] MEDS ORDERED: Effexor XR 75 MG PO SCH (10:00)
[2023-08-06] MEDS ORDERED: MEDICATION INTERVENTION MC SCH (10:15)
[2023-08-06] MEDS: Sodium Chloride 0.9% 1000 ML 1,000 ML IV SCH (13:31)
--- NOTE | 2023-08-06 18:32 | PCM.NOTE ---
Date and Time: 08/06/231824 Subjective Assessment: Patient admitted with fever, dyspnea and cough. She had temp to 103. She had night sweats during the night and temp is down now. She has cough productive of thick yellow sputum. She denies chest pain. She had some vomiting and diarrhea on Saturday but that has resolved. No abdominal pain. No urinary complaints. She has history of COPD. - Review of Systems Constitutional: No Symptoms, Fever, Chills Eyes: No Symptoms Ears, Nose, & Throat: No Symptoms Respiratory: Cough, Orthopnea, Short Of Breath, Wheezing Cardiac: No Symptoms, No Chest Pain, No Edema Abdominal/Gastrointestinal: No Symptoms, No Abdominal Pain, No Nausea, No Vomiting, No Diarrhea Genitourinary Symptoms: No Symptoms Musculoskeletal: No Symptoms Skin: No Symptoms Neurological: No Symptoms Psychological: No Symptoms Endocrine: No Symptoms Hematologic/Lymphatic: No Symptoms Immunological/Allergic: No Symptoms All Other Systems: Reviewed and Negative Objective Exam General Appearance: moderate distress Neurologic Exam: alert, oriented x 3, cooperative, 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 tested Skin Exam: normal color, warm, dry Eye Exam: PERRL Ears, Nose, Throat Exam: normal ENT inspection Neck Exam: normal inspection, non-tender, supple Respiratory Exam: respiratory distress, accessory muscle use, rhonchi, wheezing Cardiovascular Exam: regular rate/rhythm, normal heart sounds Gastrointestinal/Abdomen Exam: soft, normal bowel sounds, No tenderness, No distention, No mass Extremity Exam: normal inspection Back Exam: normal inspection, muscle spasm Rectal Exam: deferred OBJECTIVE DATA Vital Signs: Vital Signs - 24 hr Temp Pulse Resp BP BP Pulse Ox 08/06/23 16:00 97.8 F 88 18 112/67 95 08/06/23 12:00 96.7 F 99 H 18 115/65 96 08/06/23 07:30 88 16 94 L 08/06/23 07:03 96.0 F 85 16 104/59 94 L 08/06/23 04:00 97.3 F 98 H 18 100/55 97 08/05/23 23:40 108 H 17 97 08/05/23 23:31 96.9 F 101 H 17 105/59 97 08/05/23 22:28 95 08/05/23 21:14 98.6 F 111 H 16 109/60 95 11/20/23 20:20 130 H 26 H 98 11/20/23 20:15 119 H 23 86/63 99 08/05/23 20:00 129 H 20 92/50 08/05/23 19:45 109 H 18 101/60 98 08/05/23 19:30 119 H 22 86/63 97 08/05/23 19:15 122 H 23 97/63 95 08/05/23 19:00 122 H 24 107/58 89 L 08/05/23 18:45 121 H 22 108/57 08/05/23 18:30 118 H 23 106/59 Pain Assessment - Last Documented Pain Intensity 0 Pain Scale Used 0-10 Pain Scale Intake and Output: Intake & Output 08/04/23 08/05/23 08/06/23 08/07/23 11:59 11:59 11:59 11:59 Intake Total 834 Output Total 1000 Balance -166 Weight 79.6 kg Lab Results: Lab Results-Last 24 Hours 08/05/23 08/06/23 08/06/23 Range/Units 17:30 04:00 04:00 WBC 18.9 H (4.0-10.5) x10^3/uL RBC 3.96 L (4.1-5.4) x10^6/uL Hgb 10.6 L (12.0-16.0) g/dL Hct 34.4 L (35-47) % MCV 86.9 (78-100) fL MCH 26.8 (26-32) pg MCHC 30.8 L (32-36) g/dL RDW 13.4 (11.5-14.0) % Plt Count 259 (150-450) x10^3/uL MPV 10.7 (7.5-11.0) fL Sodium 137 (137-145) mmol/L Potassium 3.5 (3.5-5.1) mmol/L Chloride 107 (98-107) mmol/L Carbon Dioxide 23 (22-30) mmol/L Anion Gap 10.0 (5-15) MEQ/L BUN 12 (7-17) mg/dL Creatinine 0.73 (0.52-1.04) mg/dL Estimated GFR 98.9 ML/MIN Glucose 138 H (74-106) mg/dL Calcium 8.1 L (8.4-10.2) mg/dL Total Bilirubin 0.30 (0.2-1.3) mg/dL AST 28 (14-36) U/L ALT 18 (0-35) U/L Alkaline Phosphatase 49 (38-126) U/L Serum Total Protein 6.3 (6.3-8.2) g/dL Albumin 3.3 L (3.5-5.0) g/dL Influenza Type A Ag NEGATIVE (NEGATIVE) Influenza Type B Ag NEGATIVE (NEGATIVE) RSV (PCR) NEGATIVE (NEGATIVE) SARS-CoV-2 (PCR) NEGATIVE (NEGATIVE) Radiology Exams: Radiology Procedures Category Date Time Status CHEST 1 VIEW (PORTABLE) Stat Exams 08/05/23 18:08 Completed Assessment/Plan (1) Right middle lobe pneumonia Current Visit: Yes Status: Acute Assessment & Plan: RML pneumonia seen on CT scan Continue IV antibiotics Continue IV steroids and bronchodilators This is community acquired pneumonia COVID and Flu negative Code(s): J18.9 - PNEUMONIA, UNSPECIFIED ORGANISM (2) Acute on chronic respiratory failure with hypoxemia Current Visit: No Status: Acute Assessment & Plan: Currently on 2L oxygen Titrate oxygen as needed Code(s): J96.21 - ACUTE AND CHRONIC RESPIRATORY FAILURE WITH HYPOXIA (3) COPD exacerbation Current Visit: No Status: Chronic Assessment & Plan: Acute exacerbation of COPD. Continue steroids, antibiotics and bronchodilators Code(s): J44.1 - CHRONIC OBSTRUCTIVE PULMONARY DISEASE W (ACUTE) EXACERBATION Telemedicine Encounter - Telemedicine Encounter Telemedicine Encounter: The entirety of this encounter was performed via Telemedicine after consent obtained Labs and imaging reviewed. Robert Scott MD [facility] [employer]
[2023-08-07] MEDS: TYLENOL 325 MG PO PRN (00:39)
[2023-08-07 04:03] VITALS: RESP 16
[2023-08-07] MEDS: Sodium Chloride 0.9% 1000 ML 1,000 ML IV SCH (04:49)
[2023-08-07 05:55] LABS: Hematocrit 31.4 % (35-47); Hemoglobin 9.5 g/dL (12.0-16.0); Mean Cell Volume 86.5 fL (78-100); Mean Corpuscular Hemoglobin 26.2 pg (26-32); Mean Corpuscular Hgb Concent. 30.3 g/dL (32-36); Mean Platelet Volume 11.2 fL (7.5-11.0); Platelet Count 280 x10^3/uL (150-450); Red Blood Count 3.63 x10^6/uL (4.1-5.4); Red Cell Distribution Width 13.5 % (11.5-14.0); White Blood Count 17.8 x10^3/uL (4.0-10.5)
[2023-08-07] MEDS: SYNTHROID 88 MCG PO SCH (06:43)
[2023-08-07 06:57] LABS: ALBUMIN 3.3 g/dL (3.5-5.0); BILIRUBIN,TOTAL 0.1 mg/dL (0.2-1.3); Calcium 8.5 mg/dL (8.4-10.2); Creatinine 1 0.53 mg/dL (0.52-1.04); EST GLOMERULAR FILTRATION RATE 111.2 ML/MIN; Potassium 3.7 mmol/L (3.5-5.1); Total Protein 6.4 g/dL (6.3-8.2)
[2023-08-07] MEDS: solu-MEDROL 40 MG, Sterile H2O 10 ml 1 ML IV SCH ×2 (09:53)
[2023-08-07] MEDS: Singulair 10 MG PO SCH (09:54)
[2023-08-07] MEDS: Effexor XR 75 MG PO SCH (09:54)
[2023-08-07] MEDS: NEURONTIN PO SCH (09:54)
--- NOTE | 2023-08-07 10:37 | PCM.DS ---
Discharge Summary Date of Admission: 08/05/23 20:52 Date of Discharge: 08/07/23 Admitting Physician: ZEB LEE MD Primary Care Provider: RENEA LAMB Allergies Allergies Penicillins Allergy (Verified 08/05/23 16:54) unknown Hospital Summary - Hospital Course Hospital Course: This patient was admitted with COPD and pneumonia. She was hypoxic on admission and required supplemental oxygen. She was treated with IV antibiotics, steroids and bronchodilators. Her dyspnea and wheezing improved. Oxygenation is improved. She will be dismissed with oral antibiotics and taper of steroids. Walk test will be done to see if she needs O2 at home. The patient is much improved and will be dismissed on 08/07/23. - Vitals & Intake/Output Vital Signs: Vital Signs Temperature 97.5 F 08/07/23 07:39 Pulse Rate 87 08/07/23 07:39 Respiratory Rate 16 08/07/23 07:39 Blood Pressure 119/68 08/07/23 07:39 O2 Sat by Pulse Oximetry 93 L 08/07/23 07:39 Intake & Output: Intake & Output 08/04/23 08/05/23 08/06/23 08/07/23 11:59 11:59 11:59 11:59 Intake Total 834 1189 Output Total 1000 850 Balance -166 339 Weight 79.6 kg - Lab Result Diagrams: 08/07/23 05:50 08/07/23 04:55 Lab Results-Last 24 Hrs: Lab Results-Last 24 Hours 08/07/23 08/07/23 Range/Units 04:55 05:50 WBC 17.8 H (4.0-10.5) x10^3/uL RBC 3.63 L (4.1-5.4) x10^6/uL Hgb 9.5 L (12.0-16.0) g/dL Hct 31.4 L (35-47) % MCV 86.5 (78-100) fL MCH 26.2 (26-32) pg MCHC 30.3 L (32-36) g/dL RDW 13.5 (11.5-14.0) % Plt Count 280 (150-450) x10^3/uL MPV 11.2 H (7.5-11.0) fL Sodium 139 (137-145) mmol/L Potassium 3.7 (3.5-5.1) mmol/L Chloride 109 H (98-107) mmol/L Carbon Dioxide 23 (22-30) mmol/L Anion Gap 11.0 (5-15) MEQ/L BUN 12 (7-17) mg/dL Creatinine 0.53 (0.52-1.04) mg/dL Estimated GFR 111.2 ML/MIN Glucose 160 H (74-106) mg/dL Calcium 8.5 (8.4-10.2) mg/dL Total Bilirubin 0.10 L (0.2-1.3) mg/dL AST 20 (14-36) U/L ALT 17 (0-35) U/L Alkaline Phosphatase 58 (38-126) U/L Serum Total Protein 6.4 (6.3-8.2) g/dL Albumin 3.3 L (3.5-5.0) g/dL - Radiology Exams Ordered Rad Exams-Entire Visit: Radiology Procedures Category Date Time Status CHEST 1 VIEW (PORTABLE) Stat Exams 08/05/23 18:08 Completed - Procedures and Test Procedures and Tests throughout Hospitalization: Therapy Orders & Screens 08/05/23 20:20 Respiratory Therapy Assessment DAILY Comment: 08/06/23 02:36 Oxygen Nasal Cannula 2 lpm Comment: Diagnosis: Pneumonia Discharge Exam General Appearance: no apparent distress Neurologic Exam: alert, oriented x 3, cooperative Eye Exam: PERRL, EOMI Ears, Nose, Throat Exam: normal ENT inspection Neck Exam: normal inspection, non-tender, supple Respiratory Exam: rhonchi, No wheezing Cardiovascular Exam: regular rate/rhythm, normal heart sounds, normal peripheral pulses Gastrointestinal/Abdomen Exam: soft, normal bowel sounds, No tenderness Pelvic Exam: deferred Rectal Exam: deferred Back Exam: normal inspection Extremity Exam: normal inspection Skin Exam: normal color, warm, dry Lymphatic Exam: No adenopathy Final Diagnosis/Problem List - Final Discharge Diagnosis/Problem (1) Right middle lobe pneumonia Current Visit: Yes Status: Acute Assessment & Plan: Dismiss with oral antibiotics Much improved Code(s): J18.9 - PNEUMONIA, UNSPECIFIED ORGANISM (2) Acute on chronic respiratory failure with hypoxemia Current Visit: No Status: Acute Assessment & Plan: Walk test will be done to see if she needs oxygen at home. Code(s): J96.21 - ACUTE AND CHRONIC RESPIRATORY FAILURE WITH HYPOXIA (3) COPD exacerbation Current Visit: No Status: Chronic Assessment & Plan: Dismiss with bronchodilators and steroid taper. Code(s): J44.1 - CHRONIC OBSTRUCTIVE PULMONARY DISEASE W (ACUTE) EXACERBATION Telemedicine Encounter - Telemedicine Encounter Telemedicine Encounter: The entirety of this encounter was performed via Telemedicine" - Discharge Disposition: Home, Self-Care Condition: Stable Prescriptions: New Hydrocodone/Acetaminophen [Hydrocodone-Acetamn 7.5-325/15] 10 ml PO Q8H PRN #120 ml MDD 30 ml PRN Reason: Cough Albuterol 8 gm Mdi Hfa [Ventolin Hfa MDI] 8 gm IH Q4H #1 unit Azithromycin 250 mg [Zithromax 250 MG TABLET] 250 mg PO ZPACK #6 tablet Cefuroxime Axetil 500 mg [Ceftin 500 mg] 500 mg PO BID #20 tablet Fluticasone/Salmeterol 115/21 [Advair Hfa 115/21 Common canister*] 2 puff IH BIDRT 30 Days inhaler Albuterol/Ipratropium 3ml Neb* [DUONEB 0.5-3 MG/3 ml Neb] 3 ml IH Q4HPRN PRN #90 PRN Reason: Shortness Of Breath/Wheezing Acetaminophen 325 mg [Tylenol 325 mg] 650 mg PO Q4H PRN PRN tablet PRN Reason: Pain And/Or Fever Continue Venlafaxine HCl [Venlafaxine HCl ER] 75 mg PO DAILY Phentermine HCl 1 tab PO DAILY Levothyroxine Sodium [Unithroid] 1 tab PO DAILY Fluticasone/Vilanterol [Breo Ellipta 100-25 Mcg Inhalr] 1 puff PO DAILY Varenicline Tartrate [Chantix] 1 tab PO BID Montelukast Sodium 10 mg [Singulair 10 MG] 1 tab PO DAILY Gabapentin [Neurontin] 300 mg PO TID Ergocalciferol (Vitamin D2) [Vitamin D2] 1 cap PO WEEKLY Cyanocobalamin 1000 Mcg/ml [Cyanocobalamin B-12 1000 MCG/ML] 1 ml SQ DIRECTIONS UNKNOWN Follow up with: RENEA LAMB NP [Primary Care Provider] -
[2023-08-07 11:52] VITALS: BP 141/75; PULSE 98; TEMP 97.8; O2SAT 92
== END 2023-08-07 12:54 | disposition home or self-care (01) ==
LOC: ED 16:29 → MED SURG 20:52
PROVIDERS: ADMIT Internal Medicine Nephrology; ATTEND Internal Medicine Nephrology
DX: J18.9 Pneumonia, unspecified organism (principal); J96.21 Acute and chronic respiratory failure with hypoxia; J44.1 Chronic obstructive pulmonary disease with (acute) exacerbation; E03.9 Hypothyroidism, unspecified; D64.9 Anemia, unspecified; R00.0 Tachycardia, unspecified; Z79.899 Other long term (current) drug therapy; Z20.828 Contact with and (suspected) exposure to other viral communicable diseases; Z87.891 Personal history of nicotine dependence
CPT/HCPCS: 0241U; 36000; 36415; 71045; 80053; 81001; 85025; 85027; 86308; 87040; 87651; 94640; 94760; 96360; 96361; 96365; 96374; 96375; 99285; G0378; Q3014; J1956; J2405; J2920; J2930; A9270-GY

== ENCOUNTER 2024-01-21 14:24 | Emergency (ER) | payer OTHER ==
[2024-01-21 14:53] VITALS: TEMP 99.8
--- NOTE | 2024-01-21 15:12 | ERPHSYRPT ---
- History of Present Illness Time Seen by Provider: 01/21/24 14:50 Historian: patient Exam Limitations: no limitations Patient Subjective Stated Complaint: C/O vomiting that started early this am. Patient unable to given an exact time but states, "it was still dark out." Triage Nursing Assessment: Patient brought back to ER in a W/C. She is alert and oriented. No active vomiting during assessment. Skin is hot to touch. Right side of abdomen slightly tender. Physician History: 53-year-old female presents emergency department for evaluation of vomiting and pain to her right upper quadrant epigastrium area. Symptoms started this morning. Symptoms have been constant. Patient unable to tolerate p.o. No trauma no fever no diarrhea no rash. Patient denies sick contacts. Pain described as an ache that is localized. No radiation. Pain worse with palpation pain improved with rest. Patient denies a history of the same. Patient reports that she has had a cholecystectomy in the past. Patient voices no other complaints or concerns at this time. Portions of this note were created with voice recognition technology. There may be grammatical, spelling, punctuation or sound alike errors Timing/Duration: today Activities at Onset: none Quality: aching Abdominal Pain Onset Location: RUQ, epigastric Pain Radiation: no radiation Severity of Pain-Max: moderate Severity of Pain-Current: moderate Modifying Factors: Improves With: palpation Associated Symptoms: nausea, vomiting Previous symptoms: no prior history Allergies/Adverse Reactions: Penicillins Allergy (Verified 01/21/24 14:41) unknown Home Medications: Venlafaxine HCl [Venlafaxine HCl ER] 75 mg PO DAILY 07/04/22 [History] Cyanocobalamin 1000 Mcg/ml [Cyanocobalamin B-12 1000 MCG/ML] 1 ml SQ DIRECTIONS UNKNOWN 08/05/23 [History] Ergocalciferol (Vitamin D2) [Vitamin D2] 1 cap PO WEEKLY 08/05/23 [History] Gabapentin [Neurontin] 300 mg PO TID 08/05/23 [History] Levothyroxine Sodium [Unithroid] 1 tab PO DAILY 08/05/23 [History] Montelukast Sodium 10 mg [Singulair 10 MG] 1 tab PO DAILY 08/05/23 [History] Phentermine HCl 1 tab PO DAILY 08/05/23 [History] Hx Tetanus, Diphtheria Vaccination/Date Given: Yes Hx Influenza Vaccination/Date Given: No Hx Pneumococcal Vaccination/Date Given: No Immunizations Up to Date: Yes Travel Risk - International Travel Have you traveled outside of the country in past 3 weeks: No - Emerging Infectious Disease Are you exhibiting symptoms associated with any current EIDs: Yes Symptoms: Abdominal Pain, Vomitting - Review of Systems Constitutional: No Symptoms, No Fever, No Chills Eyes: No Symptoms Ears, Nose, & Throat: No Symptoms Respiratory: No Symptoms, No Cough, No Dyspnea Cardiac: No Symptoms, No Chest Pain, No Edema, No Syncope Abdominal/Gastrointestinal: No Symptoms, No Abdominal Pain, No Nausea, No Vomiting, No Diarrhea Genitourinary Symptoms: No Symptoms, No Dysuria Musculoskeletal: No Symptoms, No Back Pain, No Neck Pain Skin: No Symptoms, No Rash Neurological: No Symptoms, No Dizziness, No Focal Weakness, No Sensory Changes Psychological: No Symptoms Endocrine: No Symptoms Hematologic/Lymphatic: No Symptoms Immunological/Allergic: No Symptoms All Other Systems: Reviewed and Negative - Past Medical History Pertinent Past Medical History: Yes Neurological History: No Pertinent History ENT History: No Pertinent History Cardiac History: No Pertinent History Respiratory History: Asthma, COPD, Pneumonia Endocrine Medical History: Hypothyroidism Musculoskeletal History: No Pertinent History GI Medical History: Gallbladder Disease History: No Pertinent History Psycho-Social History: Anxiety Female Reproductive Disorders: Other Other Medical History: cervical cell abnormality, left knee bone spur/arthritis, anemia- iron def - Past Surgical History Past Surgical History: Yes Neuro Surgical History: No Pertinent History Cardiac: No Pertinent History Respiratory: No Pertinent History Gastrointestinal: Cholecystectomy, Exploratory Laparoscopy Genitourinary: No Pertinent History Musculoskeletal: Orthopedic Surgery Female Surgical History: Section, Other Other Surgical History: LEEP, bone spur,. ovarian cystectomy - Female History Hx Now: No - Social History Smoking Status: Current every day smoker How long have you smoked: 30 yrs Exposure to second hand smoke: No Drug Use: none Patient Lives Alone: No - Nursing Vital Signs Nursing Vital Signs: Initial Vital Signs Temperature 99.8 F 01/21/24 14:35 Pulse Rate 108 H 01/21/24 14:35 Respiratory Rate 18 01/21/24 14:35 Blood Pressure 155/83 01/21/24 14:35 O2 Sat by Pulse Oximetry 93 L 01/21/24 14:35 Pain Scale Pain Intensity 8 - Physical Exam General Appearance: no apparent distress, alert Eye Exam: PERRL/EOMI, eyes nml inspection Ears, Nose, Throat Exam: normal ENT inspection, pharynx normal, moist mucous membranes Neck Exam: normal inspection, non-tender, supple, full range of motion Respiratory Exam: normal breath sounds, lungs clear, No respiratory distress Cardiovascular Exam: regular rate/rhythm, normal heart sounds Gastrointestinal/Abdomen Exam: soft, tenderness (Tenderness palpation epigastrium and right upper quadrant), No mass Back Exam: normal inspection, normal range of motion, No CVA tenderness, No vertebral tenderness Extremity Exam: normal inspection, normal range of motion, pelvis stable Neurologic Exam: alert, oriented x 3, cooperative, normal mood/affect, nml cerebellar function, sensation nml, No motor deficits Skin Exam: normal color, warm, dry Lymphatic Exam: No adenopathy SpO2 Interpretation: normal SpO2: 93 O2 Delivery: Room Air - Course Nursing assessment & vital signs reviewed: Yes - CT Exams Abdomen/Pelvis CT Interpretation: Tele-radiologist Report (Enteritis, liver hemangiomas, right renal cortical cyst, fecal stasis and small hiatal hernia) Ordered Tests: Medication Summary Discontinued Medications Generic Name Dose Route Start Last Admin Trade Name Freq PRN Reason Stop Dose Admin Hydrocodone Bitart/Acetaminophen 1 tab 01/21/24 18:14 01/21/24 18:23 Hydrocodone/Apap 5/325 1 Tab Tablet PO 01/21/24 18:15 1 tab STAT ONE Administration Hydrocodone Bitart/Acetaminophen Confirm 01/21/24 18:21 Hydrocodone/Apap 5/325 1 Tab Tablet Administered 01/21/24 18:22 Dose 1 tab .ROUTE .STK-MED ONE Sodium Chloride 1,000 mls @ 100 mls/hr 01/21/24 15:15 01/21/24 15:53 Sodium Chloride 0.9% 1000 Ml IV 02/20/24 15:14 100 mls/hr .Q10H MICHELINE Administration Sodium Chloride Confirm 01/21/24 15:52 Sodium Chloride 0.9% 1000 Ml Administered 01/21/24 15:53 Dose 1,000 mls @ ud .ROUTE .STK-MED ONE Nitrofurantoin Macrocrystals Confirm 01/21/24 18:21 Nitrofurantoin Macro 100 Mg Capsule Administered 01/21/24 18:22 Dose 100 mg .ROUTE .STK-MED ONE Nitrofurantoin Macrocrystals 100 mg 01/21/24 18:23 01/21/24 18:24 Nitrofurantoin Macro 100 Mg Capsule PO 01/21/24 18:24 100 mg STAT ONE Administration Pantoprazole Sodium 40 mg 01/21/24 18:12 01/21/24 18:23 Pantoprazole 40 Mg Vial IV 01/21/24 18:13 40 mg STAT ONE Administration Pantoprazole Sodium Confirm 01/21/24 18:22 Pantoprazole 40 Mg Vial Administered 01/21/24 18:23 Dose 40 mg IV .[facility] Lab/Rad Data: Laboratory Result Diagrams 01/21/24 15:00 01/21/24 15:00 Laboratory Results 01/21/24 01/21/24 01/21/24 Range/Units 17:56 15:00 15:00 WBC (4.0-10.5) x10^3/uL RBC (4.1-5.4) x10^6/uL Hgb (12.0-16.0) g/dL Hct (35-47) % MCV (78-100) fL MCH (26-32) pg MCHC (32-36) g/dL RDW (11.5-14.0) % Plt Count (150-450) x10^3/uL MPV (7.5-11.0) fL Gran % (36.0-66.0) % Immature Gran % (Auto) (0.00-0.4) % Nucleat RBC Rel Count (0.00-0.1) % Eos # (Auto) (0-0.5) x10^3/uL Immature Gran # (Auto) (0.00-0.03) x10^3u/L Absolute Lymphs (auto) (1.0-4.6) x10^3/uL Absolute Monos (auto) (0.0-1.3) x10^3/uL Absolute Nucleated RBC (0.00-0.01) x10^3u/L Lymphocytes % (24.0-44.0) % Monocytes % (0.0-12.0) % Eosinophils % (0.00-5.0) % Basophils % (0.0-0.4) % Absolute Granulocytes (1.4-6.9) x10^3/uL Basophils # (0-0.4) x10^3/uL Sodium 138 (135-145) mmol/L Potassium 4.1 (3.5-5.1) mmol/L Chloride 105 (98-107) mmol/L Carbon Dioxide 26 (22-30) mmol/L Anion Gap 10.8 (5-15) MEQ/L BUN 13 (7-17) mg/dL Creatinine 0.69 (0.52-1.04) mg/dL Estimated GFR 103.7 ML/MIN Glucose 118 H (74-106) mg/dL Calcium 8.7 (8.4-10.2) mg/dL Total Bilirubin 0.30 (0.2-1.3) mg/dL AST 22 (14-36) U/L ALT 11 (0-35) U/L Alkaline Phosphatase 78 (38-126) U/L Troponin I < 0.012 (0.000-0.033) ng/mL Serum Total Protein 7.3 (6.3-8.2) g/dL Albumin 3.9 (3.5-5.0) g/dL Lipase 68 (23-300) U/L Urine Color Yellow (Yellow) Urine Appearance Clear (Clear) Urine pH 8.0 (4.6-8.0) Ur Specific Joseph >=1.030 A (1.005-1.030) Urine Protein Negative (Negative) Urine Glucose (UA) Negative (Negative) mg/dL Urine Ketones Negative (Negative) Urine Blood Negative (Negative) Urine Nitrite Negative (Negative) Urine Bilirubin Negative (Negative) Urine Urobilinogen 0.2 (0.2) mg/dL Ur Leukocyte Esterase Negative (Negative) U Hyaline Cast (Auto) NONE SEEN (0-2) /LPF Urine Microscopic RBC 0-2 (0-5) /HPF Urine Microscopic WBC 11-20 A (0-5) /HPF Ur Epithelial Cells Moderate A (None Seen) /HPF Urine Bacteria Many A (None Seen) /HPF Urine Culture Reflexed YES (NO) Slides for Path Review 01/21/24 Range/Units 15:00 WBC 7.1 (4.0-10.5) x10^3/uL RBC 4.52 (4.1-5.4) x10^6/uL Hgb 10.7 L (12.0-16.0) g/dL Hct 35.7 (35-47) % MCV 79.0 (78-100) fL MCH 23.7 L (26-32) pg MCHC 30.0 L (32-36) g/dL RDW 14.3 H (11.5-14.0) % Plt Count 352 (150-450) x10^3/uL MPV 10.5 (7.5-11.0) fL Gran % 89.3 H (36.0-66.0) % Immature Gran % (Auto) 0.3 (0.00-0.4) % Nucleat RBC Rel Count 0.0 (0.00-0.1) % Eos # (Auto) 0.19 (0-0.5) x10^3/uL Immature Gran # (Auto) 0.02 (0.00-0.03) x10^3u/L Absolute Lymphs (auto) 0.30 L (1.0-4.6) x10^3/uL Absolute Monos (auto) 0.23 (0.0-1.3) x10^3/uL Absolute Nucleated RBC 0.00 (0.00-0.01) x10^3u/L Lymphocytes % 4.2 L (24.0-44.0) % Monocytes % 3.2 (0.0-12.0) % Eosinophils % 2.7 (0.00-5.0) % Basophils % 0.3 (0.0-0.4) % Absolute Granulocytes 6.36 (1.4-6.9) x10^3/uL Basophils # 0.02 (0-0.4) x10^3/uL Sodium (135-145) mmol/L Potassium (3.5-5.1) mmol/L Chloride (98-107) mmol/L Carbon Dioxide (22-30) mmol/L Anion Gap (5-15) MEQ/L BUN (7-17) mg/dL Creatinine (0.52-1.04) mg/dL Estimated GFR ML/MIN Glucose (74-106) mg/dL Calcium (8.4-10.2) mg/dL Total Bilirubin (0.2-1.3) mg/dL AST (14-36) U/L ALT (0-35) U/L Alkaline Phosphatase (38-126) U/L Troponin I (0.000-0.033) ng/mL Serum Total Protein (6.3-8.2) g/dL Albumin (3.5-5.0) g/dL Lipase (23-300) U/L Urine Color (Yellow) Urine Appearance (Clear) Urine pH (4.6-8.0) Ur Specific Joseph (1.005-1.030) Urine Protein (Negative) Urine Glucose (UA) (Negative) mg/dL Urine Ketones (Negative) Urine Blood (Negative) Urine Nitrite (Negative) Urine Bilirubin (Negative) Urine Urobilinogen (0.2) mg/dL Ur Leukocyte Esterase (Negative) U Hyaline Cast (Auto) (0-2) /LPF Urine Microscopic RBC (0-5) /HPF Urine Microscopic WBC (0-5) /HPF Ur Epithelial Cells (None Seen) /HPF Urine Bacteria (None Seen) /HPF Urine Culture Reflexed (NO) Slides for Path Review YES - Progress Progress: improved Progress Note: 53-year-old female presents to our emergency department for evaluation of abdominal pain. Physical exam reveals mild diffuse abdominal pain. Workup reveals a enteritis. Laboratory workup essentially nonremarkable. UA reveals urinary tract infection. Patient received a dose of Macrobid in our ED. A prescription for the same forwarded to patient's pharmacy. Patient also received Protonix. Protonix 40 the patient's pharmacy as well. IV fluids administered. Pay states he is ready for discharge. No indication for further workup at this time. Patient understands importance of a clear liquid diet for the next 2 to 3 days. Patient agrees to follow-up with her primary care doctor within 48 hours for evaluation. She voices no other complaints or concerns at this time. Complexity of data reviewed is moderate. No critical care time. Complexity of data reviewed is moderate. Test ordered test reviewed results analyzed and correlated clinically with history and physical exam. Risk of complication or risk morbidity/mortality patient management is moderate. Vital stable. Time spent to discharge patient is approximately 15 minutes. Plan of care established for shared decision making. No social determinants of health present impede follow-up. Portions of this note were created with voice recognition technology. There may be grammatical, spelling, punctuation or sound alike errors 01/21/24 18:20 01/23/24 03:11 Counseled pt/family regarding: lab results, diagnosis, need for follow-up, rad results - Departure Departure Disposition: Home Clinical Impression: Abdominal pain, Enteritis, Liver hemangioma, Renal cortical cyst, Fecal stasis, Small hiatal hernia, UTI (urinary tract infection) Condition: Stable Critical Care Time: No Referrals: RENEA LAMB, [employer] [Primary Care Provider] - Follow up/PCP as directed Instructions: Constipation, Adult ED, Urinary Tract Infection, Adult ED Additional Instructions: Discharge/Care Plan CONSTANCE HORVATH was seen on 01/21/24 in the Emergency Room. The patient was counseled regarding Diagnosis,Lab results, Imaging studies, need for follow up and when to return to the Emergency Room. Prescriptions given: Discharge Note I have spoken with the patient and/or caregivers. I have explained the patient's condition, diagnosis and treatment plan based on the information available to me at this time. I have answered the patient's and/or caregiver's questions and addressed any concerns. The patient and/or caregivers have as good understanding of the patient's diagnosis, condition and treatment plan as can be expected at this point. The vital signs have been stable. The patient's condition is stable and appropriate for discharge from the emergency department. The patient will pursue further outpatient evaluation with the primary care physician or other designated or consulting physician as outlined in the discharge instructions. The patient and/or caregivers are agreeable to this plan of care and follow-up instructions have been explained in detail. The patient and/or caregivers have received these instruction. The patient/and or caregivers are aware that any significant change in condition or worsening of symptoms should prompt an immediate return to this or the closest emergency department or call 911. Prescriptions: Nitrofurantoin Macro 100 mg [Macrobid 100MG Capsule] 100 mg PO BID 7 Days #14 cap PANTOPRAZOLE 40 mg Tablet [Protonix 40MG Tablet] 40 mg PO QAM 14 Days #14 tab
[2024-01-21 15:14] LABS: Absolute Neutrophil Ct (ANC) 6.36 x10^3/uL (1.4-6.9); BASOPHIL % 0.3 % (0.0-0.4); Basophil (Absolute #) 0.02 x10^3/uL (0-0.4); Eosinophil % 2.7 % (0.00-5.0); Eosinophil (Absolute #) 0.19 x10^3/uL (0-0.5); Hematocrit 35.7 % (35-47); Hemoglobin 10.7 g/dL (12.0-16.0); IMMATURE GRAN # 0.02 x10^3u/L (0.00-0.03); IMMATURE GRAN % 0.3 % (0.00-0.4); Lymphocytes % 4.2 % (24.0-44.0); Mean Corpuscular Hemoglobin 23.7 pg (26-32); Mean Platelet Volume 10.5 fL (7.5-11.0); Monocyte (Absolute #) 0.23 x10^3/uL (0.0-1.3); Monocytes % 3.2 % (0.0-12.0); Neutrophil % 89.3 % (36.0-66.0); Platelet Count 352 x10^3/uL (150-450); Red Blood Count 4.52 x10^6/uL (4.1-5.4); Red Cell Distribution Width 14.3 % (11.5-14.0); White Blood Count 7.1 x10^3/uL (4.0-10.5)
[2024-01-21 15:29] LABS: ALBUMIN 3.9 g/dL (3.5-5.0); ANION GAP 10.8 MEQ/L (5-15); BILIRUBIN,TOTAL 0.3 mg/dL (0.2-1.3); Calcium 8.7 mg/dL (8.4-10.2); Creatinine 1 0.69 mg/dL (0.52-1.04); EST GLOMERULAR FILTRATION RATE 103.7 ML/MIN; Potassium 4.1 mmol/L (3.5-5.1); Total Protein 7.3 g/dL (6.3-8.2)
[2024-01-21] MEDS ORDERED: Sodium Chloride 0.9% 1000 ML 1,000 ML ONE (15:52)
[2024-01-21 15:53] LABS: Slide Review 1 YES
[2024-01-21] MEDS: Sodium Chloride 0.9% 1000 ML 1,000 ML IV SCH (15:53)
--- NOTE | 2024-01-21 17:05 | XRAY ---
Indication: Right upper quadrant pain. Vomiting and constipation. Multiple contiguous axial images obtained through the abdomen and pelvis using 80 cc Isovue 370 contrast as ordered. Comparison: April 04, 2023 Lung bases clear. Heart not enlarged. Stable small hiatal hernia. Stomach distended with food/fluid. Noncontrasted stomach and bowel loops appear nonobstructed. Several small bowel loops now mildly fluid distended with mild circumferential wall thickening/enhancement favor enteritis. Normal appendix. Again mild diffuse scatter colonic fecal debris, more than before. Again cholecystectomy. No free fluid/air. Liver demonstrates at least 4 nodular enhancing lesions not seen on previous noncontrast exam. Largest in right lobe measuring at least 3.4 x 2.5 cm. Delayed images demonstrates centripetal enhancement and filling in favoring hemangiomas. Incidental 9 mm right mid renal cortical cyst also not seen on previous noncontrast exam. Remaining liver, pancreas, spleen, adrenal glands, kidneys, ureters, bladder, ureters, and aorta are unremarkable. No pathologic retroperitoneal lymphadenopathy. Osseous structures intact. Impression: 1. New CT findings as detailed favoring enteritis. 2. New hepatic lesions with enhancement characteristics favoring hemangiomas. 3. New small right renal cortical cyst. 4. Worsening diffuse fecal stasis. 5. Stable small hiatal hernia.
[2024-01-21 18:09] LABS: Appearance Clear (Clear); Bacteria Many /HPF (None Seen); Bilirubin Negative (Negative); Blood Negative (Negative); Epithelial Cells Moderate /HPF (None Seen); Glucose, Urine Negative (Negative); Hyaline Casts NONE SEEN /LPF (0-2); Ketones Negative (Negative); Leukocyte Esterase Negative (Negative); Nitrite Negative (Negative); Protein,Urine Dip Negative (Negative); RBC 0-2 /HPF (0-5); Specific Gravity >=1.030 (1.005-1.030); Urobilinogen 0.2 mg/dL (0.2)
[2024-01-21 18:10] LABS: ADD URINE CULTURE? YES (NO)
[2024-01-21] MEDS ORDERED: NORCO 5/325 MG ONE (18:21)
[2024-01-21] MEDS ORDERED: Macrobid 100MG Capsule ONE (18:21)
[2024-01-21] MEDS ORDERED: PROTONIX 40 MG IV IV ONE (18:22)
[2024-01-21] MEDS: PROTONIX 40 MG IV IV ONE (18:23)
[2024-01-21] MEDS: NORCO 5/325 MG PO ONE (18:23)
[2024-01-21] MEDS: Macrobid 100MG Capsule PO ONE (18:24)
[2024-01-21 19:13] VITALS: BP 137/82; PULSE 104; RESP 18
[2024-01-23 03:12] VITALS: O2SAT 93
== END 2024-01-21 19:13 | disposition home or self-care (01) ==
LOC: ED 14:24
DX: N39.0 Urinary tract infection, site not specified (principal); R10.9 Unspecified abdominal pain; K52.9 Noninfective gastroenteritis and colitis, unspecified; D18.03 Hemangioma of intra-abdominal structures; N28.1 Cyst of kidney, acquired; K59.89 Other specified functional intestinal disorders; K44.9 Diaphragmatic hernia without obstruction or gangrene; R11.2 Nausea with vomiting, unspecified; Z79.899 Other long term (current) drug therapy; Z72.0 Tobacco use
CPT/HCPCS: 36000; 36415; 74177; 80053; 81001; 83690; 84484; 85025; 87086; 96374; 99284; A9270-GY

== ENCOUNTER 2024-08-04 19:21 | Observation (INO) | payer OTHER ==
[2024-08-04 20:16] LABS: Absolute Neutrophil Ct (ANC) 2.53 x10^3/uL (1.56-6.13); BASOPHIL % 1.5 % (0.1-1.2); Basophil (Absolute #) 0.07 x10^3/uL (0.01-0.08); Eosinophil (Absolute #) 0.23 x10^3/uL (0.04-0.36); Hematocrit 22.5 % (34.1-44.9); IMMATURE GRAN # 0.01 x10^3u/L (0.001-0.031); IMMATURE GRAN % 0.2 % (0.001-0.429); Lymphocyte (Absolute #) 1.28 x10^3/uL (1.18-3.74); Lymphocytes % 27.9 % (19.3-51.7); Mean Cell Volume 65.8 fL (79.4-94.8); Mean Corpuscular Hemoglobin 17.8 pg (25.6-32.2); Mean Corpuscular Hgb Concent. 27.1 g/dL (32.2-35.5); Mean Platelet Volume 9.4 fL (9.4-12.3); Monocyte (Absolute #) 0.47 x10^3/uL (0.24-0.86); Monocytes % 10.2 % (4.7-12.5); Neutrophil % 55.2 % (34.0-71.1); Platelet Count 326 x10^3/uL (182-369); Red Blood Count 3.42 x10^6/uL (3.93-5.22); Red Cell Distribution Width 17.2 % (11.7-14.4); White Blood Count 4.6 x10^3/uL (3.98-10.04)
[2024-08-04 20:18] LABS: Hemoglobin 6.1 g/dL (11.2-15.7)
[2024-08-04 20:33] LABS: ALBUMIN 4.1 g/dL (3.5-5.0); BILIRUBIN,TOTAL 0.2 mg/dL (0.2-1.3); Calcium 8.6 mg/dL (8.4-10.2); Creatinine 1 0.7 mg/dL (0.52-1.04); EST GLOMERULAR FILTRATION RATE 103.4 ML/MIN; Potassium 3.2 mmol/L (3.5-5.1)
[2024-08-04 20:35] LABS: INR 0.95 (0.8-3.0); PROTIME 10.4 SECONDS (9.4-12.5); PTT 25.4 SECONDS (25.1-36.5)
--- NOTE | 2024-08-04 21:52 | ERPHSYRPT ---
- History of Present Illness Time Seen by Provider: 08/04/24 19:50 Source: patient Exam Limitations: no limitations Patient Subjective Stated Complaint: pt states she had blood work done earlier today and was told to come in for blood. Triage Nursing Assessment: pt alert and oriented, answers questions approp. pt ambulates into room iwth steady gait noted. respirations nonlabored. skin pale, warm, and dry Physician History: 53-year-old female presents to our ED for blood transfusion. Patient had outpatient labs ordered as per primary care provider. Patient was advised that her hemoglobin was profoundly low. Patient has had blood transfusion in the past. Patient reports that she has had extensive workup for the ongoing anemia. However she reports that her doctors have not been able to figure out why her anemia continues to recur. Patient advised to come to our ED for blood transfusion. Patient complains of generalized weakness. No pain. No chest pain. No nausea vomiting or diaphoresis. Patient voices no other complaints or concerns at this time. Timing/Duration: today Severity: mild Modifying Factors: Improves With: nothing Associated Symptoms: denies symptoms Allergies/Adverse Reactions: Penicillins Allergy (Verified 08/04/24 19:41) unknown Home Medications: Venlafaxine HCl [Venlafaxine HCl ER] 75 mg PO DAILY 07/04/22 [History] Cyanocobalamin 1000 Mcg/ml [Cyanocobalamin B-12 1000 MCG/ML] 1 ml SQ DIRECTIONS UNKNOWN 08/05/23 [History] Ergocalciferol (Vitamin D2) [Vitamin D2] 1 cap PO WEEKLY 08/05/23 [History] Gabapentin [Neurontin] 300 mg PO TID 08/05/23 [History] Levothyroxine Sodium [Unithroid] 1 tab PO DAILY 08/05/23 [History] Montelukast Sodium 10 mg [Singulair 10 MG] 1 tab PO DAILY 08/05/23 [History] Fluticasone/Vilanterol [Breo Ellipta 100-25 Mcg INH] 1 each IH BID 08/04/24 [History] Lisdexamfetamine Dimesylate 30 mg PO DAILY 08/04/24 [History] Hx Tetanus, Diphtheria Vaccination/Date Given: No Hx Influenza Vaccination/Date Given: No Hx Pneumococcal Vaccination/Date Given: No Immunizations Up to Date: No Travel Risk - International Travel Have you traveled outside of the country in past 3 weeks: No - Emerging Infectious Disease Are you exhibiting symptoms associated with any current EIDs: No Symptoms: Abdominal Pain, Vomitting - Review of Systems Constitutional: No Symptoms, No Fever, No Chills Eyes: No Symptoms Ears, Nose, & Throat: No Symptoms Respiratory: No Symptoms, No Cough, No Dyspnea Cardiac: No Symptoms, No Chest Pain, No Edema, No Syncope Abdominal/Gastrointestinal: No Symptoms, No Abdominal Pain, No Nausea, No Vomiting, No Diarrhea Genitourinary Symptoms: No Symptoms, No Dysuria Musculoskeletal: No Symptoms, No Back Pain, No Neck Pain Skin: No Symptoms, No Rash Neurological: No Symptoms, No Dizziness, No Focal Weakness, No Sensory Changes Psychological: No Symptoms Endocrine: No Symptoms Hematologic/Lymphatic: No Symptoms Immunological/Allergic: No Symptoms All Other Systems: Reviewed and Negative - Past Medical History Pertinent Past Medical History: Yes Neurological History: No Pertinent History ENT History: No Pertinent History Cardiac History: No Pertinent History Respiratory History: Asthma, COPD, Pneumonia Endocrine Medical History: Hypothyroidism Musculoskeletal History: No Pertinent History GI Medical History: Gallbladder Disease History: No Pertinent History Psycho-Social History: Anxiety Female Reproductive Disorders: Other Other Medical History: cervical cell abnormality, left knee bone spur/arthritis, anemia- iron def - Past Surgical History Past Surgical History: Yes Neuro Surgical History: No Pertinent History Cardiac: No Pertinent History Respiratory: No Pertinent History Gastrointestinal: Cholecystectomy, Exploratory Laparoscopy Genitourinary: No Pertinent History Musculoskeletal: Orthopedic Surgery Female Surgical History: Section, Other Other Surgical History: LEEP, bone spur,. ovarian cystectomy - Female History Hx Last Menstrual Period: 07/17/13 Hx Now: No - Social History Smoking Status: Current every day smoker How long have you smoked: 30+ yrs Exposure to second hand smoke: No Drug Use: none Patient Lives Alone: No - Social Determinants of Health Will the patient participate in the screening: Yes Do you worry about a steady place to live?: No Do you have any problems with any of the following?: No known problems In the past 12 months,have you had to go without utilities?: No Transportation Issues: No Has anyone in your support network made you feel unsafe?: No Have you or anyone in your house had to go without enough: No - Nursing Vital Signs Nursing Vital Signs: Initial Vital Signs Temperature 98.0 F 11/19/24 19:44 Pulse Rate 91 H 08/04/24 19:44 Respiratory Rate 16 08/04/24 19:44 Blood Pressure 120/79 08/04/24 19:44 O2 Sat by Pulse Oximetry 100 08/04/24 19:44 Pain Scale Pain Intensity 0 - Physical Exam General Appearance: no apparent distress, alert, other (Pale) Eye Exam: PERRL/EOMI, eyes nml inspection Ears, Nose, Throat Exam: normal ENT inspection, pharynx normal, moist mucous membranes Neck Exam: normal inspection, non-tender, supple, full range of motion Respiratory Exam: normal breath sounds, lungs clear, No respiratory distress Cardiovascular Exam: regular rate/rhythm, normal heart sounds, normal peripheral pulses Gastrointestinal/Abdomen Exam: soft, normal bowel sounds, No tenderness, No mass Back Exam: normal inspection, normal range of motion, No CVA tenderness, No vertebral tenderness Extremity Exam: normal inspection, normal range of motion, pelvis stable Neurologic Exam: alert, oriented x 3, cooperative, normal mood/affect, sensation nml, No motor deficits Skin Exam: normal color, warm, dry, No rash Lymphatic Exam: No adenopathy SpO2 Interpretation: normal SpO2: 97 O2 Delivery: Room Air - Course Nursing assessment & vital signs reviewed: Yes Ordered Tests: Active Orders 24 hr Category Date Time Status Senior Animator STAT Care 08/04/24 19:58 Active IV Insertion STAT Care 08/04/24 19:56 Active Telemetry q4h Care 08/05/24 00:16 Active CBC W DIFF Stat Lab 08/04/24 20:05 Completed CMP Stat Lab 08/04/24 20:05 Completed CULTURE,URINE Stat Lab 08/04/24 21:39 Received PROTIME WITH INR Stat Lab 08/04/24 20:05 Completed PTT Stat Lab 08/04/24 20:05 Completed UA W/RFX UR CULTURE Stat Lab 08/04/24 21:39 Completed Medication Summary Generic Name Dose Route Start Last Admin Trade Name Freq PRN Reason Stop Dose Admin Magnesium Sulfate/Dextrose 100 mls @ 100 mls/hr 08/05/24 00:30 Magnesium 1 Gm / 100 Ml D5w IV 08/05/24 02:29 Q1H MICHELINE Potassium Chloride 20 meq in 100 mls @ 50 mls/hr 08/05/24 00:30 Potassium Chloride 20 Meq In Water 100ml IV 08/05/24 04:29 Q2H [facility] Lab/Rad Data: Laboratory Result Diagrams 08/04/24 20:05 08/04/24 20:05 Laboratory Results 08/04/24 08/04/24 08/04/24 Range/Units 21:39 20:05 20:05 WBC (3.98-10.04) x10^3/uL RBC (3.93-5.22) x10^6/uL Hgb (11.2-15.7) g/dL Hct (34.1-44.9) % MCV (79.4-94.8) fL MCH (25.6-32.2) pg MCHC (32.2-35.5) g/dL RDW (11.7-14.4) % Plt Count (182-369) x10^3/uL MPV (9.4-12.3) fL Gran % (34.0-71.1) % Immature Gran % (Auto) (0.001-0.429) % Nucleat RBC Rel Count (0.00-0.2) % Eos # (Auto) (0.04-0.36) x10^3/uL Immature Gran # (Auto) (0.001-0.031) x10^3u/L Absolute Lymphs (auto) (1.18-3.74) x10^3/uL Absolute Monos (auto) (0.24-0.86) x10^3/uL Absolute Nucleated RBC (0.00-0.012) x10^3u/L Lymphocytes % (19.3-51.7) % Monocytes % (4.7-12.5) % Eosinophils % (0.7-5.8) % Basophils % (0.1-1.2) % Absolute Granulocytes (1.56-6.13) x10^3/uL Basophils # (0.01-0.08) x10^3/uL PT 10.4 (9.4-12.5) SECONDS INR 0.95 (0.8-3.0) APTT 25.4 (25.1-36.5) SECONDS Sodium 138 (135-145) mmol/L Potassium 3.2 L (3.5-5.1) mmol/L Chloride 105 (98-107) mmol/L Carbon Dioxide 27 (22-30) mmol/L Anion Gap 10.0 (5-15) MEQ/L BUN 12 (7-17) mg/dL Creatinine 0.70 (0.52-1.04) mg/dL Estimated GFR 103.4 ML/MIN Glucose 91 (74-106) mg/dL Calcium 8.6 (8.4-10.2) mg/dL Total Bilirubin 0.20 (0.2-1.3) mg/dL AST 25 (14-36) U/L ALT 12 (0-35) U/L Alkaline Phosphatase 68 (38-126) U/L Serum Total Protein 7.0 (6.3-8.2) g/dL Albumin 4.1 (3.5-5.0) g/dL Urine Color Yellow (Yellow) Urine Appearance Clear (Clear) Urine pH 6.5 (4.6-8.0) Ur Specific [place] <=1.005 (1.005-1.030) Urine Protein Negative (Negative) Urine Glucose (UA) Negative (Negative) mg/dL Urine Ketones Negative (Negative) Urine Blood Negative (Negative) Urine Nitrite Negative (Negative) Urine Bilirubin Negative (Negative) Urine Urobilinogen 0.2 (0.2) mg/dL Ur Leukocyte Esterase Small A (Negative) U Hyaline Cast (Auto) NONE SEEN (0-2) /LPF Urine Microscopic RBC 0-2 (0-5) /HPF Urine Microscopic WBC 11-20 A (0-5) /HPF Ur Epithelial Cells Few (None Seen) /HPF Urine Bacteria None Seen (None Seen) /HPF Urine Culture Reflexed YES (NO) 08/04/24 Range/Units 20:05 WBC 4.6 (3.98-10.04) x10^3/uL RBC 3.42 L (3.93-5.22) x10^6/uL Hgb 6.1 L* (11.2-15.7) g/dL Hct 22.5 L (34.1-44.9) % MCV 65.8 L (79.4-94.8) fL MCH 17.8 L (25.6-32.2) pg MCHC 27.1 L (32.2-35.5) g/dL RDW 17.2 H (11.7-14.4) % Plt Count 326 (182-369) x10^3/uL MPV 9.4 (9.4-12.3) fL Gran % 55.2 (34.0-71.1) % Immature Gran % (Auto) 0.2 (0.001-0.429) % Nucleat RBC Rel Count 0.0 (0.00-0.2) % Eos # (Auto) 0.23 (0.04-0.36) x10^3/uL Immature Gran # (Auto) 0.01 (0.001-0.031) x10^3u/L Absolute Lymphs (auto) 1.28 (1.18-3.74) x10^3/uL Absolute Monos (auto) 0.47 (0.24-0.86) x10^3/uL Absolute Nucleated RBC 0.00 (0.00-0.012) x10^3u/L Lymphocytes % 27.9 (19.3-51.7) % Monocytes % 10.2 (4.7-12.5) % Eosinophils % 5.0 (0.7-5.8) % Basophils % 1.5 H (0.1-1.2) % Absolute Granulocytes 2.53 (1.56-6.13) x10^3/uL Basophils # 0.07 (0.01-0.08) x10^3/uL PT (9.4-12.5) SECONDS INR (0.8-3.0) APTT (25.1-36.5) SECONDS Sodium (135-145) mmol/L Potassium (3.5-5.1) mmol/L Chloride (98-107) mmol/L Carbon Dioxide (22-30) mmol/L Anion Gap (5-15) MEQ/L BUN (7-17) mg/dL Creatinine (0.52-1.04) mg/dL Estimated GFR ML/MIN Glucose (74-106) mg/dL Calcium (8.4-10.2) mg/dL Total Bilirubin (0.2-1.3) mg/dL AST (14-36) U/L ALT (0-35) U/L Alkaline Phosphatase (38-126) U/L Serum Total Protein (6.3-8.2) g/dL Albumin (3.5-5.0) g/dL Urine Color (Yellow) Urine Appearance (Clear) Urine pH (4.6-8.0) Ur Specific [place] (1.005-1.030) Urine Protein (Negative) Urine Glucose (UA) (Negative) mg/dL Urine Ketones (Negative) Urine Blood (Negative) Urine Nitrite (Negative) Urine Bilirubin (Negative) Urine Urobilinogen (0.2) mg/dL Ur Leukocyte Esterase (Negative) U Hyaline Cast (Auto) (0-2) /LPF Urine Microscopic RBC (0-5) /HPF Urine Microscopic WBC (0-5) /HPF Ur Epithelial Cells (None Seen) /HPF Urine Bacteria (None Seen) /HPF Urine Culture Reflexed (NO) - Progress Progress: improved Progress Note: 53-year-old female presents to emergency department for blood transfusion. Patient is antibody positive. Patient's blood not immediately available. Laboratory derangements and clued hypokalemia. UA reveals a urinary tract infection. Patient received a gram of Rocephin magnesium and potassium replacement. Patient will require hospitalization to her blood transfusion becomes available. Blood products ordered. Plan of care discussed with patient. She agrees to admission at [facility] for further evaluation and treatment. Portions of this note were created with voice recognition technology. There may be grammatical, spelling, punctuation or sound alike errors Complexity problem addressed is moderate acute complicated. No critical care time. Complex of data reviewed and analyzed is extensive. Test ordered chest reviewed results analyzed and correlated clinically with history and physical exam. Management discussed with accepts admission to observation at 12:29 AM. Risk of complication and or risk of morbidity/mortality patient management is high. Patient requires hospitalization for further evaluation and treatment. Vital stable. Time spent to admit patient approximately 20 minutes. Plan of care established for shared decision making. No social determinants of health present to impede follow-up. Portions of this note were created with voice recognition technology. There may be grammatical, spelling, punctuation or sound alike errors 08/05/24 00:23 Counseled pt/family regarding: lab results, diagnosis - Departure Departure Disposition: Home Clinical Impression: Symptomatic anemia, UTI (urinary tract infection), Hypokalemia Condition: Stable Critical Care Time: No Referrals: RENEA LAMB NP [Primary Care Provider] - Follow up/PCP as directed
[2024-08-04 22:07] LABS: Appearance Clear (Clear); Bacteria None Seen /HPF (None Seen); Bilirubin Negative (Negative); Blood Negative (Negative); Epithelial Cells Few /HPF (None Seen); Glucose, Urine Negative (Negative); Hyaline Casts NONE SEEN /LPF (0-2); Ketones Negative (Negative); Leukocyte Esterase Small (Negative); Nitrite Negative (Negative); Ph 6.5 (4.6-8.0); Protein,Urine Dip Negative (Negative); RBC 0-2 /HPF (0-5); Specific Gravity <=1.005 (1.005-1.030); Urobilinogen 0.2 mg/dL (0.2)
[2024-08-05] MEDS ORDERED: Magnesium 1 Gm / 100 Ml D5W*** 100 ML IV ONE ×2 (00:28→01:14)
[2024-08-05] MEDS ORDERED: Macrobid 100MG Capsule ONE (00:31)
[2024-08-05] MEDS: Macrobid 100MG Capsule PO ONE (00:32)
[2024-08-05] MEDS: POTASSIUM CHLORIDE 20 mEq IN WATER 100ML 20 MEQ/100 ML BAG IV SCH (00:32)
[2024-08-05] MEDS: Magnesium 1 Gm / 100 Ml D5W*** 100 ML IV SCH (00:33)
[2024-08-05 01:22] LABS: Slide Review 1 YES
[2024-08-05] MEDS ORDERED: Sodium Chloride 0.9% 1000 ML 1,000 ML ONE (01:52)
[2024-08-05] MEDS: Sodium Chloride 0.9% 1000 ML 1,000 ML IV SCH (01:53)
--- NOTE | 2024-08-05 01:57 | PCM.HP ---
History of Present Illness - Chief Complaint Chief Complaint: Admitted for Blood transfusion Date: 08/05/24 History of Present Illness: 53 years old with past medical history significant for anxiety, ADHD, hypothyroidism, COPD, chronic anemia for that she worked up extensively in the past including bidirectional endoscopy without any definite diagnosis getting intermittently blood transfusion sent from PCP office for low hemoglobin. Patient did complain of some generalized weakness and tiredness for couple of weeks,but denied having any chest pain or SOB.No black stools noted. Her hemoglobin reported around 6.2. In the ER the initial blood pressure was 120/79 she was afebrile with pulse of 91 as well as blood workup concern it was remarkable with low potassium 3.2 and hemoglobin 6.1 otherwise essentially negative urine was slightly positive for leukocyte esterase and 11-20 WBCs. Patient admitted for blood transfusion and she is being started on oral antibiotic for mild UTI. - Review of Systems All Other Systems: Reviewed and Negative (14 systems reviewed ) Medications & Allergies Home Medications: Home Medication List Venlafaxine HCl [Venlafaxine HCl ER] 75 mg PO DAILY 07/04/22 [History Confirmed 08/05/24] Cyanocobalamin 1000 Mcg/ml [Cyanocobalamin B-12 1000 MCG/ML] 1 ml SQ DIRECTIONS UNKNOWN 08/05/23 [History Confirmed 08/04/24] Ergocalciferol (Vitamin D2) [Vitamin D2] 1 cap PO WEEKLY 08/05/23 [History Confirmed 08/04/24] Gabapentin [Neurontin] 300 mg PO TID 08/05/23 [History Confirmed 08/05/24] Levothyroxine Sodium [Unithroid] 1 tab PO DAILY 08/05/23 [History Confirmed 08/05/24] Montelukast Sodium 10 mg [Singulair 10 MG] 1 tab PO DAILY 08/05/23 [History Confirmed 08/05/24] Fluticasone/Vilanterol [Breo Ellipta 100-25 Mcg INH] 1 each IH BID 08/04/24 [History Confirmed 08/05/24] Lisdexamfetamine Dimesylate 30 mg PO DAILY 08/04/24 [History Confirmed 08/05/24] Allergies/Adverse Reactions: Allergies Allergy/AdvReac Type Severity Reaction Status Date / Time Penicillins Allergy unknown Verified 11/19/24 19:41 - Past Medical History Past Medical History: Yes Neurological History: No Pertinent History ENT History: No Pertinent History Cardiac History: No Pertinent History Respiratory History: Asthma, COPD, Pneumonia Endocrine Medical History: Hypothyroidism Musculoskelatal History: No Pertinent History GI Medical History: Gallbladder Disease History: No Pertinent History Pyscho-Social History: Anxiety Reproductive Disorders: Other Comment: cervical cell abnormality, left knee bone spur/arthritis, anemia- iron def - Female History Hx Last Menstrual Period: 07/17/13 Are you now?: No - Past Surgical History Past Surgical History: Yes Neuro Surgical History: No Pertinent History Cardiac History: No Pertinent History Respiratory Surgery: No Pertinent History GI Surgical History: Cholecystectomy, Exploratory Laparoscopy Genitourinary Surgical Hx: No Pertinent History Musculskeletal Surgical Hx: Orthopedic Surgery Female Surgical History: Section, Other Other Surgical History: LEEP, bone spur,. ovarian cystectomy Significant Family History: no pertinent family hx - Social History Smoking Status: Current every day smoker How long have you smoked: 30+ yrs Exposure to second hand smoke: No Alcohol: None Drug Use: none - Social Determinants of Health Will the patient participate in the screening: Yes Do you worry about a steady place to live?: No Do you have any problems with any of the following?: No known problems In the past 12 months,have you had to go without utilities?: No Have you or anyone in your house had to go without enough: No Transportation Issues: No Has anyone in your support network made you feel unsafe?: No Does the patient want assistance with any of the above?: No - Physical Exam Vital Signs: Vital Signs - 24 hr Temp Pulse Resp BP BP Pulse Ox 08/05/24 01:00 81 14 118/72 96 08/05/24 00:30 97 08/05/24 00:30 80 17 115/75 95 08/05/24 00:00 85 12 115/80 94 L 08/04/24 23:30 94 H 18 120/77 94 L 08/04/24 23:00 78 15 124/79 94 L 08/04/24 22:30 91 H 15 126/79 95 08/04/24 22:00 78 21 119/84 98 08/04/24 21:30 81 15 127/75 91 L 08/04/24 21:00 92 H 19 122/73 97 08/04/24 19:44 98.0 F 91 H 16 120/79 100 Additional Findings: 08/05/24 01:55 HEENT Middle aged, average built in no distress NECK Supple,no thyromegaly, CVS S1+S2 + 0, no murmers RESP Bilateral equal air entry without Crepts/Wheezes heard GIT Soft non tender,non distended Skin, No rah, no Bruises LEGS No Edema PSYCH Normal,mood, judgement and insight NEURO AOX3, no focal deficit Results - Labs Lab/Micro Results: Lab Results-Last 24 Hours 08/04/24 08/04/24 08/04/24 Range/Units 20:05 20:05 20:05 WBC 4.6 (3.98-10.04) x10^3/uL RBC 3.42 L (3.93-5.22) x10^6/uL Hgb 6.1 L* (11.2-15.7) g/dL Hct 22.5 L (34.1-44.9) % MCV 65.8 L (79.4-94.8) fL MCH 17.8 L (25.6-32.2) pg MCHC 27.1 L (32.2-35.5) g/dL RDW 17.2 H (11.7-14.4) % Plt Count 326 (182-369) x10^3/uL MPV 9.4 (9.4-12.3) fL Gran % 55.2 (34.0-71.1) % Immature Gran % (Auto) 0.2 (0.001-0.429) % Nucleat RBC Rel Count 0.0 (0.00-0.2) % Eos # (Auto) 0.23 (0.04-0.36) x10^3/uL Immature Gran # (Auto) 0.01 (0.001-0.031) x10^3u/L Absolute Lymphs (auto) 1.28 (1.18-3.74) x10^3/uL Absolute Monos (auto) 0.47 (0.24-0.86) x10^3/uL Absolute Nucleated RBC 0.00 (0.00-0.012) x10^3u/L Lymphocytes % 27.9 (19.3-51.7) % Monocytes % 10.2 (4.7-12.5) % Eosinophils % 5.0 (0.7-5.8) % Basophils % 1.5 H (0.1-1.2) % Absolute Granulocytes 2.53 (1.56-6.13) x10^3/uL Basophils # 0.07 (0.01-0.08) x10^3/uL PT 10.4 (9.4-12.5) SECONDS INR 0.95 (0.8-3.0) APTT 25.4 (25.1-36.5) SECONDS Sodium 138 (135-145) mmol/L Potassium 3.2 L (3.5-5.1) mmol/L Chloride 105 (98-107) mmol/L Carbon Dioxide 27 (22-30) mmol/L Anion Gap 10.0 (5-15) MEQ/L BUN 12 (7-17) mg/dL Creatinine 0.70 (0.52-1.04) mg/dL Estimated GFR 103.4 ML/MIN Glucose 91 (74-106) mg/dL Calcium 8.6 (8.4-10.2) mg/dL Total Bilirubin 0.20 (0.2-1.3) mg/dL AST 25 (14-36) U/L ALT 12 (0-35) U/L Alkaline Phosphatase 68 (38-126) U/L Serum Total Protein 7.0 (6.3-8.2) g/dL Albumin 4.1 (3.5-5.0) g/dL Urine Color (Yellow) Urine Appearance (Clear) Urine pH (4.6-8.0) Ur Specific [place] (1.005-1.030) Urine Protein (Negative) Urine Glucose (UA) (Negative) mg/dL Urine Ketones (Negative) Urine Blood (Negative) Urine Nitrite (Negative) Urine Bilirubin (Negative) Urine Urobilinogen (0.2) mg/dL Ur Leukocyte Esterase (Negative) U Hyaline Cast (Auto) (0-2) /LPF Urine Microscopic RBC (0-5) /HPF Urine Microscopic WBC (0-5) /HPF Ur Epithelial Cells (None Seen) /HPF Urine Bacteria (None Seen) /HPF Urine Culture Reflexed (NO) Slides for Path Review YES 08/04/24 Range/Units 21:39 WBC (3.98-10.04) x10^3/uL RBC (3.93-5.22) x10^6/uL Hgb (11.2-15.7) g/dL Hct (34.1-44.9) % MCV (79.4-94.8) fL MCH (25.6-32.2) pg MCHC (32.2-35.5) g/dL RDW (11.7-14.4) % Plt Count (182-369) x10^3/uL MPV (9.4-12.3) fL Gran % (34.0-71.1) % Immature Gran % (Auto) (0.001-0.429) % Nucleat RBC Rel Count (0.00-0.2) % Eos # (Auto) (0.04-0.36) x10^3/uL Immature Gran # (Auto) (0.001-0.031) x10^3u/L Absolute Lymphs (auto) (1.18-3.74) x10^3/uL Absolute Monos (auto) (0.24-0.86) x10^3/uL Absolute Nucleated RBC (0.00-0.012) x10^3u/L Lymphocytes % (19.3-51.7) % Monocytes % (4.7-12.5) % Eosinophils % (0.7-5.8) % Basophils % (0.1-1.2) % Absolute Granulocytes (1.56-6.13) x10^3/uL Basophils # (0.01-0.08) x10^3/uL PT (9.4-12.5) SECONDS INR (0.8-3.0) APTT (25.1-36.5) SECONDS Sodium (135-145) mmol/L Potassium (3.5-5.1) mmol/L Chloride (98-107) mmol/L Carbon Dioxide (22-30) mmol/L Anion Gap (5-15) MEQ/L BUN (7-17) mg/dL Creatinine (0.52-1.04) mg/dL Estimated GFR ML/MIN Glucose (74-106) mg/dL Calcium (8.4-10.2) mg/dL Total Bilirubin (0.2-1.3) mg/dL AST (14-36) U/L ALT (0-35) U/L Alkaline Phosphatase (38-126) U/L Serum Total Protein (6.3-8.2) g/dL Albumin (3.5-5.0) g/dL Urine Color Yellow (Yellow) Urine Appearance Clear (Clear) Urine pH 6.5 (4.6-8.0) Ur Specific [place] <=1.005 (1.005-1.030) Urine Protein Negative (Negative) Urine Glucose (UA) Negative (Negative) mg/dL Urine Ketones Negative (Negative) Urine Blood Negative (Negative) Urine Nitrite Negative (Negative) Urine Bilirubin Negative (Negative) Urine Urobilinogen 0.2 (0.2) mg/dL Ur Leukocyte Esterase Small A (Negative) U Hyaline Cast (Auto) NONE SEEN (0-2) /LPF Urine Microscopic RBC 0-2 (0-5) /HPF Urine Microscopic WBC 11-20 A (0-5) /HPF Ur Epithelial Cells Few (None Seen) /HPF Urine Bacteria None Seen (None Seen) /HPF Urine Culture Reflexed YES (NO) Slides for Path Review Assessment/Plan (1) Anemia Current Visit: Yes Status: Acute Code(s): D64.9 - ANEMIA, UNSPECIFIED (2) Asthma, intrinsic with exacerbation Current Visit: No Status: Acute Code(s): J45.901 - UNSPECIFIED ASTHMA WITH (ACUTE) EXACERBATION (3) Hypothyroidism Current Visit: No Status: Chronic Code(s): E03.9 - HYPOTHYROIDISM, UNSPECIFIED Telemedicine Encounter - Telemedicine Encounter Telemedicine Encounter: The entirety of this encounter was performed via TelemedicineThis visit was performed using real-time audio and video connection between my location and thepatients locationwith the assistance of a surrogateat the patients location. Written or verbal consent was obtained from the patient/guardian to perform this visit usingCurTran technology. Any patient questions regarding the telemedicine interaction were answered. Acute on chronic severe anemia In the setting of underlying history of chronic anemia with extensive negative workup, without definite diagnosis Hemoglobin upon admission 6.1 Check iron studies, can give iv iron in am if iron is low as pt not able to tolerate PO iron much Will transfuse to keep it more than 7 Advised to see hematology as out pt Urinary tract infection Urine is positive for trace leukocyte esterase and WBCs Continue oral Macrobid for 5 days Keep following up cultures Anxiety/ADHD Continue venlafaxine and home ADHD medicine COPD Not in flare Resume home inhaler Hypothyroidism Resume home levothyroxine will check TSH Hypokalemia K 3.2 Will replace it DVT prophylaxis SCD only CODE STATUS full Discharge planning pending clinical stability. I have reviewed patient lab vitals and imaging in detail all question and concerns were addressed
[2024-08-05 05:20] LABS: Hematocrit 22.2 % (34.1-44.9); Mean Cell Volume 66.5 fL (79.4-94.8); Mean Corpuscular Hemoglobin 17.7 pg (25.6-32.2); Mean Corpuscular Hgb Concent. 26.6 g/dL (32.2-35.5); Mean Platelet Volume 9.4 fL (9.4-12.3); Platelet Count 293 x10^3/uL (182-369); Red Blood Count 3.34 x10^6/uL (3.93-5.22); Red Cell Distribution Width 16.8 % (11.7-14.4); White Blood Count 3.3 x10^3/uL (3.98-10.04)
[2024-08-05 05:47] LABS: Hemoglobin 5.9 g/dL (11.2-15.7)
[2024-08-05 06:24] LABS: Slide Review YES
[2024-08-05] MEDS ORDERED: MEDICATION INTERVENTION MC SCH ×2 (07:15)
[2024-08-05 08:57] LABS: ANION GAP 10.7 MEQ/L (5-15); Calcium 8.3 mg/dL (8.4-10.2); Creatinine 1 0.77 mg/dL (0.52-1.04); EST GLOMERULAR FILTRATION RATE 92.2 ML/MIN; Ferritin 3.37 ng/mL (11.1-264); MAGNESIUM 2.6 mg/dL (1.6-2.3); TSH, 3RD Generation 15.247 mIU/L (0.470-4.680)
[2024-08-05 09:03] LABS: Potassium 4.2 mmol/L (3.5-5.1)
[2024-08-05] MEDS: Effexor XR 75 MG PO SCH (09:04)
[2024-08-05] MEDS: NEURONTIN PO SCH (09:04)
[2024-08-05] MEDS: Macrobid 100MG Capsule PO SCH (09:04)
[2024-08-05] MEDS: SYNTHROID 88 MCG PO SCH (09:05)
[2024-08-05] MEDS: Singulair 10 MG PO SCH (09:05)
[2024-08-05] MEDS ORDERED: NON-FORMULARY ITEM (Venlafaxine Hcl [Venlafaxine Hcl Er] 75 MG Tab.Er.24) PO SCH (10:00)
[2024-08-05] MEDS ORDERED: LISDEXAMFETAMINE DIMESYLATE 30 MG PO SCH (10:00)
[2024-08-05] MEDS ORDERED: NON-FORMULARY ITEM (Fluticasone/Vilanterol [Breo Ellipta 100-25 Mcg Inhalr] 1 EACH Blst.W. IH SCH (10:00)
[2024-08-05] MEDS: Venofer 100 MG/5 ML*** 200 MG in Sodium Chloride 0.9% 100 ML IV SCH (10:07)
[2024-08-05 13:04] LABS: ABO TYPING O; Antibody Screen NEGATIVE (NEGATIVE); RH TYPING POSITIVE
[2024-08-05 13:07] LABS: CROSS MATCH (PRBC) COMPATIBLE (COMPATIBLE)
[2024-08-05 13:08] LABS: CROSS MATCH (PRBC) COMPATIBLE (COMPATIBLE)
[2024-08-05 16:36] LABS: CROSS MATCH (PRBC) COMPATIBLE (COMPATIBLE)
[2024-08-05 20:06] LABS: Hematocrit 29.7 % (34.1-44.9); Hemoglobin 8.4 g/dL (11.2-15.7)
[2024-08-05] MEDS: PROTONIX 40 MG IV IV SCH (22:10)
[2024-08-06 05:26] LABS: Hematocrit 31.4 % (34.1-44.9); Hemoglobin 8.7 g/dL (11.2-15.7); Mean Cell Volume 71.5 fL (79.4-94.8); Mean Corpuscular Hemoglobin 19.8 pg (25.6-32.2); Mean Corpuscular Hgb Concent. 27.7 g/dL (32.2-35.5); Platelet Count 322 x10^3/uL (182-369); Red Blood Count 4.39 x10^6/uL (3.93-5.22); Red Cell Distribution Width 20.8 % (11.7-14.4); White Blood Count 4.3 x10^3/uL (3.98-10.04)
[2024-08-06 05:52] LABS: ALBUMIN 3.8 g/dL (3.5-5.0); ANION GAP 8.4 MEQ/L (5-15); BILIRUBIN,TOTAL 0.2 mg/dL (0.2-1.3); Calcium 8.7 mg/dL (8.4-10.2); Creatinine 1 0.77 mg/dL (0.52-1.04); EST GLOMERULAR FILTRATION RATE 92.2 ML/MIN; Potassium 3.9 mmol/L (3.5-5.1); Total Protein 6.6 g/dL (6.3-8.2)
[2024-08-06 06:37] LABS: Slide Review YES
[2024-08-06 07:56] LABS: HCG SERUM TEST NEGATIVE (NEGATIVE)
[2024-08-06] MEDS ORDERED: Versed 2 MG/2 ML Injection ONE (08:07)
[2024-08-06] MEDS ORDERED: DIPRIVAN 200 MG/20 ML IV ONE (08:07)
[2024-08-06] MEDS: PATIENT OWN MEDICATION IH SCH (11:00)
[2024-08-06] MEDS: Advair Hfa 115/21 Common canister IH SCH (14:03)
--- NOTE | 2024-08-06 14:09 | PCM.NOTE ---
Date and Time: 08/06/24 1350 Subjective Assessment: 53 years old with past medical history significant for anxiety, ADHD, hypothyroidism, COPD, and chronic anemia. She has been worked up extensively in the past including bidirectional endoscopy without any definite diagnosis getting intermittently blood transfusions. She was sent from PCP office on 08/05/24 for low hemoglobin. Patient did complain of some generalized weakness and tiredness for couple of weeks,but denied having any chest pain or SOB. No black stools noted, but does admit to bright red bloody stools at least once per week that are significant. Her hemoglobin reported around 6.2. In the ER the initial blood pressure was 120/79 she was afebrile with pulse of 91 as well as blood workup concern it was remarkable with low potassium 3.2 and hemoglobin 6.1 otherwise essentially negative urine was slightly positive for leukocyte esterase and 11-20 WBCs. Patient admitted for blood transfusion and she is being started on oral antibiotic for mild UTI. Today she had an EGD mild gastritis no bleeding was seen. Will need to continue PPI OP at d/c. She is now scheduled to have a colonoscopy tomorrow. Will continue clear liquid diet today per GS orders. Hgb stable at 8.7 after 2 units PRBC gave yesterday. Continue IV iron infusions for iron deficiency anemia as pt is unable to tolerate oral iron. Discussed with case management she will need OP IV iron infusions at d/c. TSH elevated but pt admits she has not been taking her Synthroid as she ran out and just got it refilled. Will continue same dosing but explained she will need to f/u OP with PCP for repeat labs and monitoring. She denies CP, SOB, abd pain, N/V/D. - Review of Systems Constitutional: No Fever, No Chills Eyes: No Symptoms Ears, Nose, & Throat: No Symptoms Respiratory: No Cough, No Short Of Breath Cardiac: No Chest Pain, No Edema, No Syncope Abdominal/Gastrointestinal: No Abdominal Pain, No Nausea, No Vomiting, No Diarrhea Genitourinary Symptoms: No Dysuria Musculoskeletal: No Back Pain, No Neck Pain Skin: No Rash Neurological: No Dizziness, No Focal Weakness, No Sensory Changes Psychological: No Symptoms Endocrine: No Symptoms Hematologic/Lymphatic: No Symptoms Immunological/Allergic: No Symptoms Objective Exam General Appearance: no apparent distress, alert Neurologic Exam: alert, oriented x 3, cooperative, normal mood/affect, nml cerebellar function, sensation nml, No motor deficits Skin Exam: normal color, warm, dry Eye Exam: PERRL, EOMI, eyes nml inspection Ears, Nose, Throat Exam: normal ENT inspection, pharynx normal, moist mucous membranes Neck Exam: normal inspection, non-tender, supple, full range of motion Respiratory Exam: normal breath sounds, lungs clear, No respiratory distress Cardiovascular Exam: regular rate/rhythm, normal heart sounds Gastrointestinal/Abdomen Exam: soft, No tenderness, No mass Extremity Exam: normal inspection, normal range of motion Back Exam: normal inspection, normal range of motion, No CVA tenderness, No vertebral tenderness Pelvic Exam: deferred Rectal Exam: deferred Objective Data Vital Signs: Vital Signs - 24 hr Temp Pulse Resp BP Pulse Ox 08/06/24 11:47 97.7 F 80 18 151/92 96 08/06/24 08:00 97.7 F 84 17 129/75 92 L 08/06/24 07:00 97 H 16 93 L 08/06/24 05:04 97.9 F 86 16 102/54 92 L 08/06/24 04:27 97.9 F 86 16 102/54 92 L 08/05/24 23:01 97.7 F 77 18 124/73 92 L 08/05/24 20:00 99.6 F 94 H 18 138/83 94 L 08/05/24 15:29 98.0 F 82 16 118/66 94 L Pain Assessment - Last Documented Pain Intensity 0 Intake and Output: Intake & Output 08/04/24 08/05/24 08/06/24 08/07/24 11:59 11:59 11:59 11:59 Intake Total 676 1420 Balance 676 1420 Weight 74.4 kg 74.4 kg Lab Results: Lab Results-Last 24 Hours 08/04/24 08/05/24 08/06/24 Range/Units 20:45 20:06 04:55 WBC 4.3 (3.98-10.04) x10^3/uL RBC 4.39 (3.93-5.22) x10^6/uL Hgb 8.4 L D 8.7 L (11.2-15.7) g/dL Hct 29.7 L 31.4 L (34.1-44.9) % MCV 71.5 L D (79.4-94.8) fL MCH 19.8 L (25.6-32.2) pg MCHC 27.7 L (32.2-35.5) g/dL RDW 20.8 H (11.7-14.4) % Plt Count 322 (182-369) x10^3/uL MPV 10.0 (9.4-12.3) fL Sodium (135-145) mmol/L Potassium (3.5-5.1) mmol/L Chloride (98-107) mmol/L Carbon Dioxide (22-30) mmol/L Anion Gap (5-15) MEQ/L BUN (7-17) mg/dL Creatinine (0.52-1.04) mg/dL Estimated GFR ML/MIN Glucose (74-106) mg/dL Calcium (8.4-10.2) mg/dL Total Bilirubin (0.2-1.3) mg/dL AST (14-36) U/L ALT (0-35) U/L Alkaline Phosphatase (38-126) U/L Serum Total Protein (6.3-8.2) g/dL Albumin (3.5-5.0) g/dL Serum HCG, Qual (NEGATIVE) Slides for Path Review YES Crossmatch COMPATIBLE (COMPATIBLE) 08/06/24 08/06/24 Range/Units 04:55 04:55 WBC (3.98-10.04) x10^3/uL RBC (3.93-5.22) x10^6/uL Hgb (11.2-15.7) g/dL Hct (34.1-44.9) % MCV (79.4-94.8) fL MCH (25.6-32.2) pg MCHC (32.2-35.5) g/dL RDW (11.7-14.4) % Plt Count (182-369) x10^3/uL MPV (9.4-12.3) fL Sodium 140 (135-145) mmol/L Potassium 3.9 (3.5-5.1) mmol/L Chloride 108 H (98-107) mmol/L Carbon Dioxide 28 (22-30) mmol/L Anion Gap 8.4 (5-15) MEQ/L BUN 9 (7-17) mg/dL Creatinine 0.77 (0.52-1.04) mg/dL Estimated GFR 92.2 ML/MIN Glucose 97 (74-106) mg/dL Calcium 8.7 (8.4-10.2) mg/dL Total Bilirubin 0.20 (0.2-1.3) mg/dL AST 19 (14-36) U/L ALT 10 (0-35) U/L Alkaline Phosphatase 68 (38-126) U/L Serum Total Protein 6.6 (6.3-8.2) g/dL Albumin 3.8 (3.5-5.0) g/dL Serum HCG, Qual NEGATIVE (NEGATIVE) Slides for Path Review Crossmatch (COMPATIBLE) Assessment/Plan (1) Acute on chronic anemia Current Visit: Yes Status: Acute Assessment & Plan: - 2 units PRBC gave yesterday - HGB 8.7 today- trend - Iron panel reviewed - CBC, CMP reviewed - will need OP hematology appt. OP - EGD today with GS showed gastritis - Colonoscopy in AM- bowel prep tonight- npo midnight Code(s): D64.9 - ANEMIA, UNSPECIFIED (2) Gastritis Current Visit: Yes Status: Acute Assessment & Plan: - PPI BID - Continue meds OP Code(s): K29.70 - GASTRITIS, UNSPECIFIED, WITHOUT BLEEDING (3) Hematochezia Current Visit: Yes Status: Chronic Assessment & Plan: - Colonoscopy in AM with GS - Bowel prep tonight - NPO midnight - Hgb 8.7- trend Code(s): K92.1 - MELENA (4) Anxiety Current Visit: Yes Status: Chronic Assessment & Plan: - Continue Effexor Code(s): F41.9 - ANXIETY DISORDER, UNSPECIFIED (5) UTI (urinary tract infection) Current Visit: Yes Status: Acute Assessment & Plan: - Macrobid BID PO - UC negative- stop antibiotics Code(s): N39.0 - URINARY TRACT INFECTION, SITE NOT SPECIFIED (6) ADHD (attention deficit hyperactivity disorder) Current Visit: Yes Status: Chronic Assessment & Plan: - continue lisdexamfetamine daily (7) Iron deficiency anemia Current Visit: Yes Status: Chronic Assessment & Plan: - iron panel reviewed - unable to tolerate oral iron - Venofer- IV- will need to continue OP - Discussed with case mgnt to set up OP Code(s): D50.9 - IRON DEFICIENCY ANEMIA, UNSPECIFIED (8) COPD (chronic obstructive pulmonary disease) Current Visit: No Status: Chronic Assessment & Plan: -Not in flare -Resume home inhaler (9) Hypothyroidism Current Visit: No Status: Chronic Assessment & Plan: - Resume home levothyroxine - TSH 15.247- will need OP f/u - Pt reports she had not been taking as ran out of med and just picked up refill VTE: SCD's PPI: Protonix Next of KIN: D/C plan: [facility] [phone] Code status: Full Code(s): E03.9 - HYPOTHYROIDISM, UNSPECIFIED
[2024-08-06] MEDS: Golytely Solution 4000 ML PO ONE (16:32)
[2024-08-07 05:09] LABS: Hematocrit 31.8 % (34.1-44.9); Mean Cell Volume 70.7 fL (79.4-94.8); Mean Corpuscular Hgb Concent. 28.3 g/dL (32.2-35.5); Mean Platelet Volume 9.8 fL (9.4-12.3); Platelet Count 326 x10^3/uL (182-369); Red Cell Distribution Width 21.7 % (11.7-14.4); White Blood Count 4.9 x10^3/uL (3.98-10.04)
[2024-08-07 05:25] LABS: ALBUMIN 4.2 g/dL (3.5-5.0); ANION GAP 10.5 MEQ/L (5-15); BILIRUBIN,TOTAL 0.5 mg/dL (0.2-1.3); Calcium 9.2 mg/dL (8.4-10.2); Creatinine 1 0.71 mg/dL (0.52-1.04); EST GLOMERULAR FILTRATION RATE 101.6 ML/MIN; MAGNESIUM 2.2 mg/dL (1.6-2.3); Potassium 3.7 mmol/L (3.5-5.1); Total Protein 7.1 g/dL (6.3-8.2)
[2024-08-07 06:33] LABS: Slide Review YES
[2024-08-07] MEDS ORDERED: DIPRIVAN 200 MG/20 ML IV ONE ×2 (06:46→07:45)
[2024-08-07] MEDS ORDERED: GlucaGen 1 MG ONE (07:29)
[2024-08-07 11:18] VITALS: BP 121/70; PULSE 88; RESP 22; TEMP 98.7; O2SAT 92
--- NOTE | 2024-08-07 11:24 | OP ---
SURGERY DATE/TIME: 08/06/2024 [id number] PREOPERATIVE DIAGNOSIS: Acute gastrointestinal bleed. POSTOPERATIVE DIAGNOSIS: EGD with cold biopsy. Patient has a very mild antritis. There is no significant bleeding. She has grade 1 gastroesophageal reflux disease. PROCEDURE: Esophagogastroduodenoscopy with cold biopsy of the antrum. SURGEON: Sven Starr MD ANESTHESIA: General. COMPLICATIONS: None. CONDITION: Stable. DESCRIPTION OF PROCEDURE AND FINDINGS: General anesthetic. The scope was introduced. The vocal cords were normal. Pharyngoesophageal junction normal. Esophagus normal down to EG junction, a light rim of esophagitis grade 1. No hiatal hernia. Fundus body was normal. There was very light antritis. There was hair or a superimposed fungus on this. There was no bleeding though, and this certainly has not been the cause of any significant bleeding. Duodenal bulb was normal. Second portion normal. Scope looped upon itself. EG junction normal from below. Scope withdrawn. PLAN: She will be given a bowel prep, and she will be scheduled for colonoscopic examination tomorrow.
--- NOTE | 2024-08-07 11:38 | PCM.DS ---
Discharge Summary Date of Admission: 08/05/24 02:15 Date of Discharge: 08/07/24 Admitting Physician: ANJALI SIN MD Consults: Consults on Case 08/05/24 09:42 Consult Surgery ROUTINE Primary Care Provider: RENEA LAMB Allergies Allergies Penicillins Allergy (Verified 08/04/24 19:41) unknown Hospital Summary - Hospital Course Hospital Course: 08/06/24 53 years old with past medical history significant for anxiety, ADHD, hypothyroidism, COPD, and chronic anemia. She has been worked up extensively in the past including bidirectional endoscopy without any definite diagnosis getting intermittently blood transfusions. She was sent from PCP office on 08/05/24 for low hemoglobin. Patient did complain of some generalized weakness and tiredness for couple of weeks,but denied having any chest pain or SOB. No black stools noted, but does admit to bright red bloody stools at least once per week that are significant. Her hemoglobin reported around 6.2. In the ER the initial blood pressure was 120/79 she was afebrile with pulse of 91 as well as blood workup concern it was remarkable with low potassium 3.2 and hemoglobin 6.1 otherwise essentially negative urine was slightly positive for leukocyte esterase and 11-20 WBCs. Patient admitted for blood transfusion and she is being started on oral antibiotic for mild UTI. Today she had an EGD mild gastritis no bleeding was seen. Will need to continue PPI OP at d/c. She is now scheduled to have a colonoscopy tomorrow. Will continue clear liquid diet today per GS orders. Hgb stable at 8.7 after 2 units PRBC gave yesterday. Continue IV iron infusions for iron deficiency anemia as pt is unable to tolerate oral iron. Discussed with case management she will need OP IV iron infusions at d/c. TSH elevated but pt admits she has not been taking her Synthroid as she ran out and just got it refilled. Will continue same dosing but explained she will need to f/u OP with PCP for repeat labs and monitoring. She denies CP, SOB, abd pain, N/V/D. 08/07/24 Pt resting in bed. She went for a colonoscopy this AM and was not clear. Barium enema ordered per general surgery. She has an appointment Saturday with Dr. Fisher for chronic anemia eval and will need iron infusions continued. Urine culture negative and antibiotic stopped. She is having some rectal pain from hemorrhoids and tucks pads started. If ok with general surgery may d/c today. Hgb stable at 9.0. She is c/o some abd pain but may be r/t constipation. She denies any further concerns at this time. Post op barium enema showed diverticulosis per GS - Vitals & Intake/Output Vital Signs: Vital Signs Temperature 98.7 F 08/07/24 11:17 Pulse Rate 88 08/07/24 11:17 Respiratory Rate 22 08/07/24 11:17 Blood Pressure 121/70 08/07/24 11:17 O2 Sat by Pulse Oximetry 92 L 08/07/24 11:17 Intake & Output: Intake & Output 08/04/24 08/05/24 08/06/24 08/07/24 11:59 11:59 11:59 11:59 Intake Total 676 1420 2240 Output Total 1 Balance 676 1420 2239 Weight 74.4 kg 74.4 kg 74.4 kg - Lab Result Diagrams: 08/07/24 05:00 08/07/24 05:00 Lab Results-Last 24 Hrs: Lab Results-Last 24 Hours 08/07/24 08/07/24 Range/Units 05:00 05:00 WBC 4.9 (3.98-10.04) x10^3/uL RBC 4.50 (3.93-5.22) x10^6/uL Hgb 9.0 L (11.2-15.7) g/dL Hct 31.8 L (34.1-44.9) % MCV 70.7 L (79.4-94.8) fL MCH 20.0 L (25.6-32.2) pg MCHC 28.3 L (32.2-35.5) g/dL RDW 21.7 H (11.7-14.4) % Plt Count 326 (182-369) x10^3/uL MPV 9.8 (9.4-12.3) fL Sodium 140 (135-145) mmol/L Potassium 3.7 (3.5-5.1) mmol/L Chloride 103 (98-107) mmol/L Carbon Dioxide 30 (22-30) mmol/L Anion Gap 10.5 (5-15) MEQ/L BUN 5 L (7-17) mg/dL Creatinine 0.71 (0.52-1.04) mg/dL Estimated GFR 101.6 ML/MIN Glucose 98 (74-106) mg/dL Calcium 9.2 (8.4-10.2) mg/dL Magnesium 2.2 (1.6-2.3) mg/dL Total Bilirubin 0.50 (0.2-1.3) mg/dL AST 22 (14-36) U/L ALT 11 (0-35) U/L Alkaline Phosphatase 75 (38-126) U/L Serum Total Protein 7.1 (6.3-8.2) g/dL Albumin 4.2 (3.5-5.0) g/dL Slides for Path Review YES Micro Results-Entire Visit: Microbiology 08/04/24 21:39 Urine Culture - Final Urine, Void <10K NORMAL SKIN GAIL PROBABLE SKIN CONTAMINANT - Radiology Exams Ordered Rad Exams-Entire Visit: Radiology Procedures Category Date Time Status BARIUM ENEMA W/AIR CONTRAST Routine Exams 08/07/24 08:26 Ordered - Procedures and Test Procedures and Tests throughout Hospitalization: Therapy Orders & Screens 08/05/24 03:06 RT Screen per Nursing Assess ONCE Comment: Protocol Order Physician Instructions: Greater than 3 points order RT Admission Screen Reason For Exam: Triggered on Admission Diagnosis: Symptomatic anemia, microcytic anemia Diagnosis: Symptomatic anemia, microcytic anemia Pneumonia: No Home O2: No Asthma: Yes CHF: No Home CPAP/BIPAP: No Home Nebs/MDI: Yes Total Points: 9 Smoking Cessation Education ONCE Comment: Diagnosis: Symptomatic anemia, microcytic anemia Smoking Status: Current every day smoker How long have you smoked: 30 Have you smoked in the past 12 months: Yes Approximately how many cigarettes per day: 1/2 pack to pack/day Do you dip or chew tobacco: No If,Former Smoker,when did you quit: 1 MONTH AGO 08/05/24 03:53 Respiratory Therapy Assessment DAILY Comment: Diagnosis: Admitted for Blood transfusion 08/06/24 07:00 Respiratory MDI DAILY Comment: Diagnosis: Admitted for Blood transfusion Discharge Exam General Appearance: no apparent distress, alert Neurologic Exam: alert, oriented x 3, cooperative, normal mood/affect, nml cerebellar function, sensation nml, No motor deficits Eye Exam: PERRL, EOMI, eyes nml inspection Ears, Nose, Throat Exam: normal ENT inspection, pharynx normal, moist mucous membranes Neck Exam: normal inspection, non-tender, supple, full range of motion Respiratory Exam: normal breath sounds, lungs clear, No respiratory distress Cardiovascular Exam: regular rate/rhythm, normal heart sounds Gastrointestinal/Abdomen Exam: soft, tenderness, No mass Pelvic Exam: deferred Rectal Exam: deferred Back Exam: normal inspection, normal range of motion, No CVA tenderness, No vertebral tenderness Extremity Exam: normal inspection, normal range of motion Skin Exam: normal color, warm, dry Final Diagnosis/Problem List - Final Discharge Diagnosis/Problem (1) Acute on chronic anemia Current Visit: Yes Status: Acute Code(s): D64.9 - ANEMIA, UNSPECIFIED (2) Gastritis Current Visit: Yes Status: Acute Code(s): K29.70 - GASTRITIS, UNSPECIFIED, WITHOUT BLEEDING (3) Hematochezia Current Visit: Yes Status: Chronic Code(s): K92.1 - MELENA (4) Anxiety Current Visit: Yes Status: Chronic Code(s): F41.9 - ANXIETY DISORDER, UNSPECIFIED (5) UTI (urinary tract infection) Current Visit: Yes Status: Acute Code(s): N39.0 - URINARY TRACT INFECTION, SITE NOT SPECIFIED (6) ADHD (attention deficit hyperactivity disorder) Current Visit: Yes Status: Chronic (7) Iron deficiency anemia Current Visit: Yes Status: Chronic Code(s): D50.9 - IRON DEFICIENCY ANEMIA, UNSPECIFIED (8) COPD (chronic obstructive pulmonary disease) Current Visit: No Status: Chronic (9) Hypothyroidism Current Visit: No Status: Chronic Assessment & Plan: (1) Acute on chronic anemia Current Visit: Yes Status: Acute Assessment & Plan: - 2 units PRBC gave yesterday - HGB 8.7 today- trend - Iron panel reviewed - CBC, CMP reviewed - will need OP hematology appt. OP - EGD today with GS showed gastritis - Colonoscopy in AM- bowel prep tonight- npo midnight 08/07 - Colonoscopy today followed by barium enema- results pending - if ok with GS will d/c today Code(s): D64.9 - ANEMIA, UNSPECIFIED (2) Gastritis Current Visit: Yes Status: Acute Assessment & Plan: - PPI BID - Continue meds OP Code(s): K29.70 - GASTRITIS, UNSPECIFIED, WITHOUT BLEEDING (3) Hematochezia Current Visit: Yes Status: Chronic Assessment & Plan: - Colonoscopy in AM with GS - Bowel prep tonight - NPO midnight - Hgb 8.7- trend 08/07 - Hgb 9.0- stable Code(s): K92.1 - MELENA (4) Anxiety Current Visit: Yes Status: Chronic Assessment & Plan: - Continue Effexor Code(s): F41.9 - ANXIETY DISORDER, UNSPECIFIED (5) UTI (urinary tract infection) Current Visit: Yes Status: Acute Assessment & Plan: - Macrobid BID PO - UC negative- stop antibiotics Code(s): N39.0 - URINARY TRACT INFECTION, SITE NOT SPECIFIED (6) ADHD (attention deficit hyperactivity disorder) Current Visit: Yes Status: Chronic Assessment & Plan: - continue lisdexamfetamine daily (7) Iron deficiency anemia Current Visit: Yes Status: Chronic Assessment & Plan: - iron panel reviewed - unable to tolerate oral iron - Venofer- IV- will need to continue OP - Discussed with case mgnt to set up OP - F/U OP with Dr. Fisher Saturday Code(s): D50.9 - IRON DEFICIENCY ANEMIA, UNSPECIFIED (8) COPD (chronic obstructive pulmonary disease) Current Visit: No Status: Chronic Assessment & Plan: -Not in flare -Resume home inhaler (9) Hypothyroidism Current Visit: No Status: Chronic Assessment & Plan: - Resume home levothyroxine - TSH 15.247- will need OP f/u - Pt reports she had not been taking as ran out of med and just picked up refill Code(s): E03.9 - HYPOTHYROIDISM, UNSPECIFIED (10) Bleeding hemorrhoids Current Visit: Yes Status: Acute Assessment & Plan: - TUCKs pads 6 times daily PRN Code(s): K64.9 - UNSPECIFIED HEMORRHOIDS (11) Diverticulosis Current Visit: Yes Status: Acute Assessment & Plan: - per general seen after colonoscopy and barium enema. Code(s): K57.90 - DVRTCLOS OF INTEST, PART UNSP, W/O PERF OR ABSCESS W/O BLEED - Discharge Discharge Date: 08/07/24 Disposition: Home, Self-Care Condition: Stable Prescriptions: New Cherrie Ramos [Tucks] 1 pad TP [id number] PRN 7 Days #1 unit PRN Reason: Pain Pantoprazole 20 mg [Protonix 20MG Tablet] 20 mg PO BID 30 Days #60 tab Continue Venlafaxine HCl [Venlafaxine HCl ER] 75 mg PO DAILY Levothyroxine Sodium [Unithroid] 1 tab PO DAILY Montelukast Sodium 10 mg [Singulair 10 MG] 1 tab PO DAILY Gabapentin [Neurontin] 300 mg PO TID Ergocalciferol (Vitamin D2) [Vitamin D2] 1 cap PO WEEKLY Cyanocobalamin 1000 Mcg/ml [Cyanocobalamin B-12 1000 MCG/ML] 1 ml SQ DIRECTIONS UNKNOWN Fluticasone/Vilanterol [Breo Ellipta 100-25 Mcg Inhalr] 1 each IH BID Lisdexamfetamine Dimesylate 30 mg PO DAILY Instructions: Diverticulosis (DC), Anemia caused by low iron in adults - Discharge instructions Follow up with: CAMPOS FISHER [COURTESY STAFF] - 08/10/24 11:30 am AB MCDONOUGH [ACTIVE STAFF] - 09/03/24 9:40 am ([place] [facility]) RENEA LAMB NP [Primary Care Provider] - 08/17/24 11:00 am Forms: Discharge Instructions
[2024-08-07] MEDS: TUCKS TP PRN (12:36)
--- NOTE | 2024-08-07 12:46 | XRAY ---
Indication: Incomplete colonoscopy. No biopsy. Comparison: None Preliminary verification lead abdomen demonstrates mildly distended small and large bowel loops presumed from same day colonoscopy. No focal bowel dilatation, obstruction, or free air. Previous cholecystomy. Osseous structures intact. Following insertion barium enema catheter, balloon tip was insufflated. Barium and air insufflation was performed under fluoroscopic and gravity control. Multiple digital spot and overhead radiograph obtained. There is good distention and opacification of the entire colon. Incidental redundant transverse and ascending colon. Minimal transverse diverticulosis. No focal stricture, annular constricting lesions, obstruction, or filling defect. Cecum appears unremarkable. Small amount of reflux in terminal ileum. Postevacuation overhead radiograph images normal expected decompression. No abnormal contrast collection or extravasation. Impression: Minimal transverse colonic diverticulosis. Remaining double contrast barium enema exam is negative. Approximately 2.5 minute fluoroscopy used.
[2024-08-09] MEDS ORDERED: VITAMIN D2 PO SCH (10:00)
--- NOTE | 2024-08-10 11:05 | OP ---
SURGERY DATE/TIME: 08/07/2024 07:23 - 07:38 PREOPERATIVE DIAGNOSIS: Gastrointestinal bleed with a negative upper gastrointestinal. POSTOPERATIVE DIAGNOSIS: Patient has a limited exam with 30 cm secondary to spasm. This could not be cleared with anesthetic or Glucagon. Patient has been sent for a very minimum examination. PROCEDURE: Colonoscopy to 30 cm. SURGEON: Sven Starr MD DESCRIPTION OF PROCEDURE AND FINDINGS: Patient was taken endoscopy. Anal digital examination satisfactory. She has some internal and external hemorrhoids. Anus otherwise satisfactory. Rectum is satisfactory. Sigmoid is small and petite. Navigated up about 2 rotations and turns. At this point, it just would not advance. We pulled this out 3 times, reinserted. We had the scope totally loose, scope tightened up with care and patience and it just was not advancing with a significant amount of lubricant. Glucagon 2.5 amps were given. She was scheduled for a barium enema examination.
== END 2024-08-07 14:21 | disposition home or self-care (01) ==
LOC: ED 19:21 → MED SURG 08-05 02:15
PROVIDERS: ADMIT Internal Medicine; ATTEND Internal Medicine
DX: D64.9 Anemia, unspecified (principal); K29.70 Gastritis, unspecified, without bleeding; K92.1 Melena; F41.9 Anxiety disorder, unspecified; K21.9 Gastro-esophageal reflux disease without esophagitis; F17.200 Nicotine dependence, unspecified, uncomplicated; F90.9 Attention-deficit hyperactivity disorder, unspecified type; E87.6 Hypokalemia; N39.0 Urinary tract infection, site not specified; E03.9 Hypothyroidism, unspecified; D50.9 Iron deficiency anemia, unspecified; J44.9 Chronic obstructive pulmonary disease, unspecified; K64.4 Residual hemorrhoidal skin tags; K64.8 Other hemorrhoids; K57.90 Diverticulosis of intestine, part unspecified, without perforation or abscess without bleeding; J45.901 Unspecified asthma with (acute) exacerbation; Z79.899 Other long term (current) drug therapy
CPT/HCPCS: 36415; 43239; 45378; 74280; 80048; 80053; 81001; 82728; 83540; 83735; 84443; 84703; 85014; 85018; 85025; 85027; 85610; 85730; 86850; 86900; 86901; 86902; 86922; 87086; 93041; 94640; 94760; 96374; 96375; 99284; P9016; Q3014; 36430; 93268; J1610; J1756; J2250; J2704; J3475; J3480; A9270-GY; G0378